=== PATIENT | male | born 1965 | race Caucasian/White ===

== ENCOUNTER 2022-04-23 13:19 | Inpatient (IN) | payer OTHER, SELFPAY ==
--- NOTE | ~2022-04-23 | XR_ITS ---
EXAMINATION: XR CHEST CLINICAL INFORMATION: Cough. COMPARISON: None TECHNIQUE: 2 views of the chest were obtained. FINDINGS: There are very small bilateral pleural effusions with mild superjacent linear opacities. The upper lung silva are clear. The heart and mediastinal structures are unremarkable. XR/XR chest 2V IMPRESSION: Very small bilateral pleural effusions and mild superjacent atelectasis/infiltrates.
--- NOTE | ~2022-04-23 | CT_ITS ---
EXAMINATION: CT ANGIOGRAM OF THE CHEST WITH AND WITHOUT CONTRAST (CT PULMONARY ANGIOGRAM FOR PE) CLINICAL INFORMATION: Reason for Exam leukocytosis, pleural effusion, cough COMPARISON: Chest radiograph earlier today TECHNIQUE: Prior to contrast administration, noncontrast localization images were obtained. Subsequently, multidetector volumetric imaging was performed from the thoracic inlet to below the diaphragms following the administration of 65 mL Omnipaque 350 intravenous contrast. No contrast reaction reported Sagittal, coronal, and MIP oblique sagittal reformatted images were obtained on the CT workstation, uploaded to PACS, and reviewed. This CT examination was performed using dose optimization techniques as appropriate, variously including the following: *Automated exposure control *Adjustment of mA and/or kV according to patient size (this includes techniques or standardized protocols for targeted exams where dose is matched to indication/reason for exam; i.e. extremities or head) *Use of iterative reconstruction technique Total exam dose-length product 230 mGy-cm FINDINGS: QUALITY OF STUDY/CONTRAST BOLUS: Satisfactory bolus but marked motion artifact limiting diagnosis especially at the lung bases.. PULMONARY ARTERIES: No central or large segmental pulmonary emboli. THORACIC AORTA: No aneurysm or dissection. LUNG: Bilateral lower lobe tree-in-bud densities are seen along with some traction bronchiectasis and lower lobe atelectasis. Tree-in-bud formation is also present in the posterior portions of both upper lobes (see hurley images). Prominent AP window lymph nodes seen measuring 1.9 x 1.5 x 1.5 cm. PLEURA: No pleural effusion or pneumothorax. MEDIASTINUM: Normal heart size. No pericardial effusion. No hilar or mediastinal lymphadenopathy. No evidence of septal bowing or right heart strain. CHEST WALL/AXILLA: No axillary or internal mammary lymphadenopathy. OSSEOUS STRUCTURES: No acute or suspicious osseous abnormality. UPPER ABDOMEN: Unremarkable. No reflux of contrast into the hepatic veins to suggest elevated right heart pressures. CT/CT angio chest PE protocol IMPRESSION: 1. Limited exam but no central or large segmental pulmonary emboli are seen. 2. Multifocal moderately extensive tree-in-bud formation suggesting airway disease/multifocal pneumonia. VTE: negative
[2022-04-23 13:26] VITALS: BP 105/64; PULSE 79; RESP 18; TEMP 36.8; O2SAT 97; BMI 22.9
[2022-04-23 14:11] LABS: Basophils Absolute Auto 0.1 X10*3/uL (0.0-0.2); Basophils Percent Auto 0.4 % (0-2); Eosinophils Absolute Auto 0.2 X10*3/uL (0.0-0.4); Eosinophils Percent Auto 0.7 % (0-4); Hematocrit 33.6 % (42.0-52.0); Hemoglobin 11.8 g/dl (14.0-18.0); Imm Gran Abs Auto 0.41 X10*3/uL (0.00-0.03); Imm Gran Pct Auto 1.9 % (0.0-0.4); Lymphocytes Absolute Auto 1.7 X10*3/uL (1.2-4.9); Lymphocytes Percent Auto 7.9 % (20-40); MANUAL DIFF FLAG SCAN; Mean Corpuscular HGB Conc 35.1 g/dl (31.0-36.0); Mean Corpuscular Hemoglobin 28.2 pg (27.0-33.0); Mean Corpuscular Volume 80.2 fL (80.0-98.0); Mean Platelet Volume 8.7 fL (9.4-12.4); Monocytes Absolute Auto 0.1 X10*3/uL (0.1-1.2); Monocytes Percent Auto 0.6 % (2-11); Neutrophils Absolute Auto 18.7 x10*3/uL (2.0-8.3); Neutrophils Percent Auto 88.5 % (45-73); Platelet Count 459 X10*3/uL (160-400); Red Blood Count 4.19 X10*6/uL (4.60-5.80); SCAN SMEAR FLAG 1; White Blood Count 21.2 X10*3/uL (4.8-10.8)
[2022-04-23 14:27] LABS: COVID-19 Test Negative (Negative); IDNOW Serial# 16C4AD1C; Influenza A Negative (Negative); Influenza B2 Negative (Negative)
[2022-04-23 14:43] LABS: SLIDE REVIEW VERIFIED
[2022-04-23 19:51] LABS: Alanine Aminotransferase 41 U/L (0-40); Albumin Level 3.1 g/dL (3.5-5.0); Alkaline Phosphatase 139 U/L (39-117); Anion Gap 16 (12-20); Aspartate Amino Transferase 38 U/L (5-37); Bilirubin Total 1.4 mg/dL (0.0-1.0); Blood Urea Nitrogen 29 mg/dL (9-16); Calcium 8.5 mg/dL (8.4-10.2); Carbon Dioxide 24 mmol/L (22-29); Chloride 102 mmol/L (96-108); Creatinine Clr Calc Pharmacy 84.3; Estimated Glomerular Filt Rate > 60; Glucose Random 117 mg/dL (60-115); Potassium 4.6 mmol/L (3.3-5.1); Sodium 137 mmol/L (135-145); Total Protein 6.5 g/dL (6.5-8.0)
--- NOTE | 2022-04-23 21:02 | ED_ITS ---
HPI - Recheck/Abnormal Lab/Rx General Chief Complaint: Recheck/Abnormal Lab/Rx Stated Complaint: ELVE WHITE CELLS R RIB PAINS Time Seen by Provider: 04/23/22 20:36 Source: patient Mode of arrival: ambulatory Limitations: no limitations History of Present Illness HPI narrative: 56 yo male with history of Rheumatoid Arthritis on MTX and Annia & hypothyroidism who presents to the ER for evaluation of leukocytosis. He reports on 04/14 he started feeling unwell, fatigued and a mild cough. He ended up going to [facility] on 04/17 where he had a negative COVID test and told his symptoms were most likely viral. He continued to feel unwell, getting slightly worse. He was able to go to work every day but was exhausted when he got home. He has had no fever or chills. Two days ago he had his routine bimonthly lab work done at his Hot Wort Settler's office at [facility]. He got a call yesterday afternoon that his WBC was 33.9. His PCP and Hot Wort Settler recommended he come to the ER for further evaluation. 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 He denies any known insect or bug bites. No rashes. No fevers, chills, nausea, vomiting, diarrhea, or abdominal pain. He has had a cough that recently started producing white phlegm. No chest pain. He reports right lower rib pain associa lalita with coughing. complaint: abnormal lab and needs IV antibiotics Initial visit (ago): day(s) (10) Initial visit for: other (cough and fatigue ) Returns today for: called because of abnormal lab/test Description of abnormal result: WBC 33.9K Symptoms since prior visit: no new symptoms Associated symptoms: malaise Related Data Allergies Allergy/AdvReac Type Severity Reaction Status Date / Time No Known Allergies Allergy Verified 04/23/22 13:25 Review of Systems Review of Systems: Constitutional: No Fever, No Chills, +Fatigue ENT/Mouth: No sore throat, No Rhinorrhea, No Swallowing Difficulty Eyes: No Eye Pain, No Swelling, No Redness Cardiovascular: No Chest Pain, No SOB, No Orthopnea, No Edema Respiratory: No Cough, No Sputum, No Wheezing, No dyspnea Gastrointestinal: No Nausea, No Vomiting, No Diarrhea, No abdominal Pain, No Hematochezia, No Melena Genitourinary: No Dysuria, No Urinary Frequency, No Hematuria Musculoskeletal: + joint pain, + Myalgias Skin: No Skin Lesions, No rash Neuro: No Weakness, No Numbness, No Dizziness, No Headache Psych: No Anxiety/Panic, No Depression Heme/Lymph: No Bruising, No Lymphadenopathy Endocrine: No Polyuria, No Polydipsia PMFSH Social History Social History Advance Directives: No Advance Directives Information Provided: No Physical Exam Vital Signs: Vital Signs: Last Vital Signs Temp 98.2 F 04/23/22 13:26 Pulse 79 04/23/22 13:26 Resp 18 04/23/22 13:26 BP 105/64 04/23/22 13:26 Pulse Ox 97 04/23/22 13:26 O2 Del Method 04/23/22 13:26 BMI result Body Mass Index 22.9 Appearance: Alert. Oriented X3. No acute distress. Eyes: Pupils equal, round and reactive to light. ENT: Pharynx normal. Neck: Normal inspection. Neck supple. CVS: Normal heart rate and rhythm. Pulses normal. Respiratory: No respiratory distress. Breath sounds with faint rales at bilateral bases, no wheezes or rhonchi. Abdomen: Soft and nontender. +BS x4 Skin: Skin warm and dry. Normal skin color. Normal skin turgor. No rashes. Extremities: No lower extremity edema. Neuro: Oriented X 3. No motor deficit. No sensory deficit. Course Course Course Narrative: 56-year-old immunocompromised male with a history of rheumatoid arthritis on methotrexate and Humira, history of hypothyroidism who presents to the ER for ev aluation of significant leukocytosis of 33.9 as an outpatient. He reports feeling unwell for the last 10 days with fatigue, cough and acute on chronic joint pains. VS are normal on arrival. Exam is unremarkable. His labs were repeated in triage - WBC remains signfiicantly elevated today 21.2K, although downtrending. Case and imaging was reviewed with Dr. Mendez who recommends CTA chest, broad spectrum abx and admission to the hospital for further management. Plan of care d/w patient. Reevaluation(s) Reevaluation #1: Multiple attempts at IVs, another nurse to try now. Delay in CTA and abx due to this. Reevaluation #2: Lactic acid 3.2. IV fluids are ordered. CTA of the chest was done, no PE is visualized. There is multifocal moderately extensive tree-in-bud opacities suggesting airway disease/multifocal pneumonia. CRP ESR and procalcitonin have been added. Plan for admission. Hospitalist has been texted who accepts admission. MDM - Recheck/Abnormal Lab/Rx Medical Records Attestation: I reviewed the patient's medical records. Lab Data Attestation: I reviewed the patient's lab results. Result diagrams: 04/23/22 13:59 04/23/22 19:22 Labs: Lab Results 04/23/22 04/23/22 04/23/22 Range/Units 13:59 14:01 14:01 WBC 21.2 H (4.8-10.8) X10*3/uL RBC 4.19 L (4.60-5.80) X10*6/uL Hgb 11.8 L (14.0-18.0) g/dl Hct 33.6 L (42.0-52.0) % MCV 80.2 (80.0-98.0) fL MCH 28.2 (27.0-33.0) pg MCHC 35.1 (31.0-36.0) g/dl RDW 16.0 (11.0-16.0) % Plt Count 459 H (160-400) X10*3/uL MPV 8.7 L (9.4-12.4) fL Immature Gran % (Auto) 1.9 H (0.0-0.4) % Neut % (Auto) 88.5 H (45-73) % Lymph % (Auto) 7.9 L (20-40) % [place] % (Auto) 0.6 L (2-11) % Eos % (Auto) 0.7 (0-4) % Baso % (Auto) 0.4 (0-2) % Lymph # (Auto) 1.7 (1.2-4.9) X10*3/uL [place] # (Auto) 0.1 (0.1-1.2) X10*3/uL Eos # (Auto) 0.2 (0.0-0.4) X10*3/uL Baso # (Auto) 0.1 (0.0-0.2) X10*3/uL Abs Immat Gran (auto) 0.41 H (0.00-0.03) X10*3/uL Absolute Neuts (auto) 18.7 H (2.0-8.3) x10*3/uL Absolute Nucleated RBC 0.000 (0.0-0.012) X10*3/uL Nucleated RBC % (auto) 0.0 (0.0-0.2) /100WBC Smear Tech's Comments VERIFIED Sodium (135-145) mmol/L Potassium (3.3-5.1) mmol/L Chloride (96-108) mmol/L Carbon Dioxide (22-29) mmol/L Anion Gap (12-20) BUN (9-16) mg/dL Creatinine (0.5-1.4) mg/dL Estim Creat Clear Calc Estimated GFR Random Glucose (60-115) mg/dL Lactic Acid (0.5-2.0) mmol/L Calcium (8.4-10.2) mg/dL Total Bilirubin (0.0-1.0) mg/dL AST (5-37) U/L ALT (0-40) U/L Alkaline Phosphatase (39-117) U/L C-Reactive Protein (< or = 0.50) mg/dL Total Protein (6.5-8.0) g/dL Albumin (3.5-5.0) g/dL Urine Color Urine Appearance Urine pH (5.0-8.0) Ur Specific [place] (1.005-1.025) Urine Protein (NEG-TRACE) MG/DL Urine Glucose (UA) (NEG) MG/DL Urine Ketones (NEG) MG/DL Urine Blood (NEG) Urine Nitrite (NEG) Ur Leukocyte Esterase (NEG) COVID-19 (DARIO) Negative (Negative) COVID-19 Clin Com See Note Influenza Type A (SUNDAY) Negative (Negative) Influenza Type B (SUNDAY) Negative (Negative) Influenza A & B Note See Note 04/23/22 04/23/22 04/23/22 Range/Units 19:22 21:48 22:00 WBC (4.8-10.8) X10*3/uL RBC (4.60-5.80) X10*6/uL Hgb (14.0-18.0) g/dl Hct (42.0-52.0) % MCV (80.0-98.0) fL MCH (27.0-33.0) pg MCHC (31.0-36.0) g/dl RDW (11.0-16.0) % Plt Count (160-400) X10*3/uL MPV (9.4-12.4) fL Immature Gran % (Auto) (0.0-0.4) % Neut % (Auto) (45-73) % Lymph % (Auto) (20-40) % [place] % (Auto) (2-11) % Eos % (Auto) (0-4) % Baso % (Auto) (0-2) % Lymph # (Auto) (1.2-4.9) X10*3/uL [place] # (Auto) (0.1-1.2) X10*3/uL Eos # (Auto) (0.0-0.4) X10*3/uL Baso # (Auto) (0.0-0.2) X10*3/uL Abs Immat Gran (auto) (0.00-0.03) X10*3/uL Absolute Neuts (auto) (2.0-8.3) x10*3/uL Absolute Nucleated RBC (0.0-0.012) X10*3/uL Nucleated RBC % (auto) (0.0-0.2) /100WBC Smear Tech's Comments Sodium 137 (135-145) mmol/L Potassium 4.6 (3.3-5.1) mmol/L Chloride 102 (96-108) mmol/L Carbon Dioxide 24 (22-29) mmol/L Anion Gap 16 (12-20) BUN 29 H (9-16) mg/dL Creatinine 0.83 (0.5-1.4) mg/dL Estim Creat Clear Calc 84.3 Estimated GFR > 60 Random Glucose 117 H (60-115) mg/dL Lactic Acid 3.1 H* (0.5-2.0) mmol/L Calcium 8.5 (8.4-10.2) mg/dL Total Bilirubin 1.4 H (0.0-1.0) mg/dL AST 38 H (5-37) U/L ALT 41 H (0-40) U/L Alkaline Phosphatase 139 H (39-117) U/L C-Reactive Protein 30.52 H (< or = 0.50) mg/dL Total Protein 6.5 (6.5-8.0) g/dL Albumin 3.1 L (3.5-5.0) g/dL Urine Color YELLOW Urine Appearance CLEAR Urine pH 5.5 (5.0-8.0) Ur Specific [place] >= 1.030 H (1.005-1.025) Urine Protein TRACE (NEG-TRACE) MG/DL Urine Glucose (UA) NEG (NEG) MG/DL Urine Ketones 15 (NEG) MG/DL Urine Blood NEG (NEG) Urine Nitrite NEG (NEG) Ur Leukocyte Esterase NEG (NEG) COVID-19 (DARIO) (Negative) COVID-19 Clin Com Influenza Type A (SUNDAY) (Negative) Influenza Type B (SUNDAY) (Negative) Influenza A & B Note Discharge Plan Discharge Clinical Impression: Multifocal pneumonia Patient Disposition: Admitted As Inpatient
[2022-04-23 22:13] LABS: Appearance Urine CLEAR; Color Urine YELLOW; Glucose Urine UA NEG (NEG); Leukocyte Esterase Urine NEG (NEG); Nitrite Urine NEG (NEG); PH 5.5 (5.0-8.0); Specific Gravity - Urine >= 1.030 (1.005-1.025); Urine Blood NEG (NEG); Urine Ketones 15 MG/DL (NEG); Urine Protein TRACE MG/DL (NEG-TRACE)
[2022-04-23 22:39] LABS: Lactic Acid 3.1 mmol/L (0.5-2.0)
[2022-04-23] MEDS: iohexoL 350 MG/ML 100 ML INFUS..BTL 65 ML IV (23:11)
[2022-04-23] MEDS: 0.9 % Sodium Chloride 1,000 ML 999 ML IVCONT (23:24)
[2022-04-23] MEDS: Piperacillin Sodium/Tazobactam 4.5 GM in 0.9 % Sodium Chloride 100 ML IV (23:31)
--- NOTE | 2022-04-23 23:53 | P.HPHOSP_ITS ---
History of Present Illness Date of Service: 04/23/22 Chief Complaint: weakness This is a pleasant 48-year-old male past medical history of rheumatoid arthritis on MTX and Humira, hypothyroidism, presents to the hospital with complaints of abnormal labs and generalized weakness. Patient reports that he started feeling unwell about a week ago having significant fatigue, always feeling tired, having shortness of breath on exertion, cough, no significant sputum production, [facility] had [facility] which was significant for leukocytosis. He had tested for COVID but he was negative. He went home but continued to feel unwell, getting slightly worse. 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 he reports that he continues to work but has just felt generally unwell. He denies any fever, no chills, no chest pain, no abdominal pain, no nausea or vomiting, no diarrhea constipation, no urinary symptoms and no lower extremity edema. On arrival to the ED patient found to be hemodynamically stable no significant abnormal vitals Labs are significant for WBC count of 21.2, hemoglobin of 11.8, hematocrit 33.6, lactic acid of 3.1, total bili of 1.4, AST of 38, ALT of 41, CRP of 30.52, procalcitonin of 0.5, UA negative, chest x-ray showed multifocal pneumonia, COVID-19 negative Patient will be admitted for above Review of Systems Review of Systems: Yes all other systems are reviewed and are negative [facility] Medical History (Updated 04/24/22 @ 06:42 by Presley Nichols MD) Hypothyroidism Rheumatoid arthritis Family History (Updated 04/24/22 @ 06:41 by Presley Nichols MD) Other No family history of coronary artery disease Surgical History (Updated 04/24/22 @ 06:42 by Presley Nichols MD) No pertinent past surgical history Social History Alcohol intake: never Patient Tobacco Use Status: Never used Tobacco Use of substances other than those prescribed or required for medical reasons: No Advance Directives: No Advance Directives Information Provided: No Meds Allergies Allergy/AdvReac Type Severity Reaction Status Date / Time No Known Allergies Allergy Verified 04/23/22 13:25 Active Medications: Current Medications Sodium Chloride (Ns) 1,000 mls @ 999 mls/hr IVCONT .Q1H1M REGGIE Stop: 04/24/22 00:15 Last Admin: 04/23/22 23:24 Dose: 999 mls/hr Pharmacy Consult (Consult Rx Perform Med Rec) 1 each MISCELLANE ONCE PRN PRN Reason: Consult order Physical Exam Vital Signs and Narrative: Vital Signs: Last Vital Signs Temp 98.2 F 04/23/22 13:26 Pulse 79 04/23/22 13:26 Resp 18 04/23/22 13:26 BP 105/64 04/23/22 13:26 Pulse Ox 97 04/23/22 13:26 O2 Del Method 04/23/22 13:26 BMI result Body Mass Index 22.9 Const: Other: Ill-appearing thin man who is oriented x3 General: cooperative and no acute distress Orientation/consciousness: patient oriented x3 Eyes: General: appearance normal, both eyes and all related structures Resp: Other: Crackles bilaterally Effort & Inspection: normal respiratory effort Cardio: Rate: regular rate Rhythm: regular rhythm GI: Palpation (GI): Soft to palpation Auscultation: normal bowel sounds Skin: General skin exam: no rashes or lesions noted Neuro: General: patient oriented x3 Cognition (Neuro): normal cognition Extrem: General: Yes normal to inspection and Yes no pedal edema Results Labs CBC and Chem 7: 04/24/22 04:20 04/24/22 04:19 Labs: Laboratory Results - last 24 hr 04/23/22 04/23/22 04/23/22 13:59 14:01 14:01 MCV 80.2 MCH 28.2 MCHC 35.1 RDW 16.0 Plt Count 459 H MPV 8.7 L Immature Gran % (Auto) 1.9 H Neut % (Auto) 88.5 H Lymph % (Auto) 7.9 L [place] % (Auto) 0.6 L Eos % (Auto) 0.7 Baso % (Auto) 0.4 Lymph # (Auto) 1.7 [place] # (Auto) 0.1 Eos # (Auto) 0.2 Baso # (Auto) 0.1 Abs Immat Gran (auto) 0.41 H Absolute Neuts (auto) 18.7 H Absolute Nucleated RBC 0.000 Nucleated RBC % (auto) 0.0 Smear Tech's Comments VERIFIED Anion Gap Estim Creat Clear Calc Estimated GFR Random Glucose Lactic Acid Calcium Total Bilirubin AST ALT Alkaline Phosphatase Total Protein Albumin Urine Color Urine Appearance Urine pH Ur Specific [place] Urine Protein Urine Glucose (UA) Urine Ketones Urine Blood Urine Nitrite Ur Leukocyte Esterase COVID-19 (DARIO) Negative COVID-19 Clin Com See Note Influenza Type A (SUNDAY) Negative Influenza Type B (SUNDAY) Negative Influenza A & B Note See Note 04/23/22 04/23/22 04/23/22 19:22 21:48 22:00 MCV MCH MCHC RDW Plt Count MPV Immature Gran % (Auto) Neut % (Auto) Lymph % (Auto) [place] % (Auto) Eos % (Auto) Baso % (Auto) Lymph # (Auto) [place] # (Auto) Eos # (Auto) Baso # (Auto) Abs Immat Gran (auto) Absolute Neuts (auto) Absolute Nucleated RBC Nucleated RBC % (auto) Smear Tech's Comments Anion Gap 16 Estim Creat Clear Calc 84.3 Estimated GFR > 60 Random Glucose 117 H Lactic Acid 3.1 H* Calcium 8.5 Total Bilirubin 1.4 H AST 38 H ALT 41 H Alkaline Phosphatase 139 H Total Protein 6.5 Albumin 3.1 L Urine Color YELLOW Urine Appearance CLEAR Urine pH 5.5 Ur Specific [place] >= 1.030 H Urine Protein TRACE Urine Glucose (UA) NEG Urine Ketones 15 Urine Blood NEG Urine Nitrite NEG Ur Leukocyte Esterase NEG COVID-19 (DARIO) COVID-19 Clin Com Influenza Type A (SUNDAY) Influenza Type B (SUNDAY) Influenza A & B Note Imaging Radiologist's Impressions: Impressions Chest X-Ray 04/23/22 14:16 IMPRESSION: Very small bilateral pleural effusions and mild superjacent atelectasis/infiltrates. Chest CTA 04/23/22 23:10 IMPRESSION: 1. Limited exam but no central or large segmental pulmonary emboli are seen. 2. Multifocal moderately extensive tree-in-bud formation suggesting airway disease/multifocal pneumonia. VTE: negative Assessment and Plan (1) Multifocal pneumonia: Status: Acute (2) Immunocompromised state: Status: Acute Plan 56-year-old male with past medical history of RA on immunosuppressants presents to the hospital with complaints of generalized weakness common mild cough found to have acute multifocal pneumonia # multifocal pneumonia - community-acquired - COVID-19 negative - has elevated procalcitonin, leukocytosis, - will treat with IV antibiotics given his immunocompromised state - monitor for respiratory symptoms # immunocompromised state - in the setting of RA on immunosuppressant - IV antibiotics as above - monitor # RA - stable - continue home medications # hypothyroidism - continue levothyroxine DVT prophylaxis: Lovenox Given his immunosuppressed state patient will need IV antibiotics for treatment of multifocal pneumonia and therefore admission with a minimum 2 night hospital stay for further management and monitoring Pending med rec by pharmacy Quality Stroke Does the patient have a stroke diagnosis?: No VTE Prior VTE?: No VTE Risk Level:: Medical - moderate - high VTE Device Contraindication: Treatment Not Indicated VTE Drug Contraindication: N/A - Med Ordered
[2022-04-24 00:04] LABS: C Reactive Protein 30.52 mg/dL (< or = 0.50)
[2022-04-24 00:10] LABS: Reflex Lactate? Lactic Acid Added
[2022-04-24 00:34] LABS: Procalcitonin 0.56 ng/mL
[2022-04-24 00:58] LABS: ~Lactic Acid-LAB USE ONLY 1.1 mmol/L (0.5-2.0)
[2022-04-24] MEDS: 0.9 % Sodium Chloride 1,000 ML 999 ML IVCONT (01:03)
[2022-04-24] MEDS: Piperacillin Sodium/Tazobactam 3.375 GM in 0.9 % Sodium Chloride 50 ML IV ×5 (01:03→22:56)
[2022-04-24] MEDS: vancomycin HCL 1,500 MG in 0.9 % Sodium Chloride 500 ML 333.33 MG IV (01:04)
[2022-04-24 02:53] VITALS: BP 115/77; PULSE 81; RESP 22; TEMP 36.4; O2SAT 100
[2022-04-24] MEDS: Lactated Ringers 1,000 ML 100 ML IVCONT ×3 (03:09→20:46)
[2022-04-24 04:26] LABS: Basophils Absolute Auto 0.1 X10*3/uL (0.0-0.2); Basophils Percent Auto 0.4 % (0-2); Eosinophils Absolute Auto 0.4 X10*3/uL (0.0-0.4); Eosinophils Percent Auto 2.9 % (0-4); Hematocrit 29.9 % (42.0-52.0); Hemoglobin 10.4 g/dl (14.0-18.0); Imm Gran Abs Auto 0.11 X10*3/uL (0.00-0.03); Imm Gran Pct Auto 0.9 % (0.0-0.4); Lymphocytes Absolute Auto 1.8 X10*3/uL (1.2-4.9); Lymphocytes Percent Auto 14.6 % (20-40); MANUAL DIFF FLAG SCAN; Mean Corpuscular HGB Conc 34.8 g/dl (31.0-36.0); Mean Corpuscular Hemoglobin 27.8 pg (27.0-33.0); Mean Corpuscular Volume 79.9 fL (80.0-98.0); Mean Platelet Volume 8.6 fL (9.4-12.4); Monocytes Absolute Auto 0.1 X10*3/uL (0.1-1.2); Monocytes Percent Auto 0.6 % (2-11); Neutrophils Absolute Auto 10.2 x10*3/uL (2.0-8.3); Neutrophils Percent Auto 80.6 % (45-73); Platelet Count 405 X10*3/uL (160-400); Red Blood Count 3.74 X10*6/uL (4.60-5.80); Red Cell Distribution Width 16.1 % (11.0-16.0); SCAN SMEAR FLAG 1; White Blood Count 12.6 X10*3/uL (4.8-10.8)
[2022-04-24 04:44] LABS: Anion Gap 12 (12-20); Blood Urea Nitrogen 26 mg/dL (9-16); Calcium 7.1 mg/dL (8.4-10.2); Carbon Dioxide 19 mmol/L (22-29); Chloride 110 mmol/L (96-108); Creatinine Clr Calc Pharmacy 98.6; Estimated Glomerular Filt Rate > 60; Glucose Random 99 mg/dL (60-115); Potassium 4.2 mmol/L (3.3-5.1); Sodium 137 mmol/L (135-145)
[2022-04-24 04:55] LABS: SLIDE REVIEW VERIFIED
[2022-04-24 05:43] VITALS: BP 105/55; PULSE 65; RESP 20; TEMP 37; O2SAT 98
--- NOTE | 2022-04-24 06:33 | PHA.PROG ---
Admission Date/Time: April 23, 2022 23:50 Indication: respiratory infection Weight in k.5 kg Adjusted body weight in K.9 [place] body weight in K.5 Obesity Dosing Indication % IBW: not obese Serum Creatinine - Last 168 Hours 04/23/22 04/24/22 19:22 04:19 Creatinine 0.83 0.71 Estimated CrCl and GFR - Last 168 Hours 04/23/22 04/24/22 19: 04:19 Estim Creat Clear Calc 84.3 98.6 Estimated GFR > 60 > 60 Vancomycin Loading Dose: 1500mg Current Vancomycin Dosing Regimen: 1000mg Q12 Vancomycin Monitoring using AUC goal of 400 - 600 range with trough as surrogate marker: predicted 512 mg/L/hr Date and Time for next Vancomycin Level to be drawn: 04/25 @1100 Pharmacist Comments on Vancomycin Plan: Patients Scr is 0.71, indicating that there should be no problem with the patient clearing. Patient is also younger than 65 years old. This being said, Q12 dosing was chosen. Patient received a proper load at 25mg/kg. Current regimen is 1000mg Q12, will get a level on 04/25 @1100 right before the 1300 dose. Earlier draw was chosen so that trough can be monitored by pharmacy. If the patient was to get one more dose, the trough would have been at 0100 while the pharmacy is closed. Predicted AUC 512 mg/L/hr. Vancomycin dosing will take advantage of [employer] as a clinical decision support tool that uses Bayesian modeling to calculate individual patient's pharmacokinetic parameters and forecast the patient's drug concentration time course with the target goal AUC 24 range of 400 - 600 mg/L/hr.
[2022-04-24 07:37] VITALS: BP 99/51; PULSE 71; RESP 18; TEMP 36.9; O2SAT 99
--- NOTE | 2022-04-24 09:14 | PHA.MEDREC ---
Pharmacy Consult ? Medication Reconciliation Pharmacy has completed the medication reconciliation.
[2022-04-24 10:23] LABS: Adenovirus PCR Not Detected (Not Detect.); Bordetella parapertussis PCR Not Detected (Not Detect.); Bordetella pertussis PCR Not Detected (Not Detect.); Chlamydia pneumoniae PCR Not Detected (Not Detect.); Coronavirus 229E PCR Not Detected (Not Detect.); Coronavirus HKU1 PCR Not Detected (Not Detect.); Coronavirus NL63 PCR Not Detected (Not Detect.); Coronavirus OC43 PCR Not Detected (Not Detect.); Human metapneumovirus PCR Not Detected (Not Detect.); Influenza A PCR Not Detected (Not Detect.); Influenza B PCR Not Detected (Not Detect.); Mycoplasma pneumoniae PCR Not Detected (Not Detect.); Parainfluenza 1 PCR Not Detected (Not Detect.); Parainfluenza 2 PCR Not Detected (Not Detect.); Parainfluenza 3 PCR Not Detected (Not Detect.); Parainfluenza 4 PCR Not Detected (Not Detect.); RSV PCR Not Detected (Not Detect.); Rhino/Enterovirus PCR Not Detected (Not Detect.); SARS-CoV-2 PCR Not Detected (Not Detect.)
[2022-04-24 10:24] VITALS: BP 93/51; PULSE 60; RESP 16; TEMP 36.7; O2SAT 100
[2022-04-24 10:52] LABS: MRSA Nasal PCR NEGATIVE (Negative); SA Nasal PCR NEGATIVE (Negative)
--- NOTE | 2022-04-24 12:13 | PC.NURSE ---
PT STATES CP WITH COUGH, AOX4 AMB WITH STEADY GAIT JUST STATES FEELING WEAK. OOB TO USE URINAL INDEPENDENT. TOLERATING PO. ALL LABS SENT RESULTS PENDING. PT NEEDS BEING MET
--- NOTE | 2022-04-24 12:39 | HO.PM.IMPN ---
Subjective Subjective Date of Service: 04/24/22 Interval History: c/o rib pain with coughing no fever Review of Systems Review of Systems: Yes all other systems are reviewed and are negative Physical Exam Vital Signs: Vital Signs: Last Vital Signs Temp 98.0 F 04/24/22 10:24 Pulse 60 04/24/22 10:24 Resp 16 04/24/22 10:24 BP 93/51 L 04/24/22 10:24 Pulse Ox 100 04/24/22 10:24 O2 Del Method 04/24/22 10:24 BMI result Body Mass Index 22.9 Gen: in no acute distress HEENT: sclera anicteric, moist mucus membranes Neck: supple Lungs: diminished air entry Heart: regular rate and rhythm, no murmurs Abd: soft, non-tender, non-distended Ext: no edema, multiple deformities in fingers Skin: warm/well-perfused Neuro: alert and oriented x3, no focal findings Psych: appropriate affect Objective Data Active Medications Acetaminophen (Acetaminophen 325 Mg Tablet) 650 mg PO Q6H PRN PRN Reason: Pain, Mild (Pain Scale 1-3) Benzonatate (Benzonatate 100 Mg Capsule) 200 mg PO TID PRN PRN Reason: Cough Docusate Sodium (Docusate Sodium 100 Mg Capsule) 100 mg PO DAILY PRN PRN Reason: Constipation Enoxaparin Sodium (Enoxaparin Sodium 40 Mg/0.4 Ml Syringe) 40 mg SUBCUT Q24H [facility] Piperacillin Sod/Tazobactam (Sod 3.375 gm/ Sodium Chloride) 50 mls @ 100 mls/hr IV Q6H [facility] Last Admin: 04/24/22 05:41 Dose: 100 mls/hr Documented By: DON Lactated Ringer's (Lr) 1,000 mls @ 100 mls/hr IVCONT .Q10H [facility] Last Admin: 04/24/22 11:19 Dose: 100 mls/hr Documented By: FITZ Vancomycin HCl 1,000 mg/ (Sodium Chloride) 270 mls @ 270 mls/hr IV Q12H [facility] Ondansetron HCl (Ondansetron Hcl 4 Mg/2 Ml Vial) 4 mg IVPUSH Q8H PRN PRN Reason: Nausea and Vomiting Pharmacy Consult (Consult Rx Perform Med Rec) 1 each MISCELLANE ONCE PRN PRN Reason: Consult order Pharmacy Consult (Consult Rx Vancomycin Dosing) 1 each MISCELLANE DAILY PRN PRN Reason: Consult order Sodium Chloride (0.9 % Sodium Chloride Flush 3 Ml Syringe) 3 ml IVFLUSH QSHIFT [facility] Last Admin: 04/24/22 09:37 Dose: Not Given Documented By: FITZ Non-Admin Reason: IV Running Labs CBC & Chem 7: 04/24/22 04:20 04/24/22 04:19 Labs: Laboratory Results - last 24 hr 04/23/22 04/23/22 04/23/22 13:59 14:01 14:01 MCV 80.2 MCH 28.2 MCHC 35.1 RDW 16.0 Plt Count 459 H MPV 8.7 L Immature Gran % (Auto) 1.9 H Neut % (Auto) 88.5 H Lymph % (Auto) 7.9 L [place] % (Auto) 0.6 L Eos % (Auto) 0.7 Baso % (Auto) 0.4 Lymph # (Auto) 1.7 [place] # (Auto) 0.1 Eos # (Auto) 0.2 Baso # (Auto) 0.1 Abs Immat Gran (auto) 0.41 H Absolute Neuts (auto) 18.7 H Absolute Nucleated RBC 0.000 Nucleated RBC % (auto) 0.0 Smear Tech's Comments VERIFIED Anion Gap Estim Creat Clear Calc Estimated GFR Random Glucose Lactic Acid Lactic Acid F/U @ 2Hr Calcium Total Bilirubin AST ALT Alkaline Phosphatase C-Reactive Protein Total Protein Albumin Procalcitonin Urine Color Urine Appearance Urine pH Ur Specific [place] Urine Protein Urine Glucose (UA) Urine Ketones Urine Blood Urine Nitrite Ur Leukocyte Esterase Nasal Screen MRSA (PCR) Nasal S. aureus Screen Nasal MRSA/S.aureus Interp Respiratory Panel Ahuja Adenovirus (Rapid PCR) B.pert (TEM-PCR) B.parapertussis DNA PCR C. pneumoniae DNA (PCR) Coronavirus OC43 (PCR) Coronavirus HKU1 (PCR) Coronavirus 229E (PCR) COVID-19 (DARIO) Negative COVID-19 Clin Com See Note Coronavirus NL63 (PCR) Human Metapneumovir PCR Influenza Type A (SUNDAY) Negative Influenza A (RT-PCR) Influenza Type B (SUNDAY) Negative Influenza B (RT-PCR) Influenza A & B Note See Note M. pneumoniae (PCR) Parainfluenza 1 (PCR) Parainfluenza 2 (PCR) Parainfluenza 3 (PCR) Parainfluenza 4 (PCR) RSV (PCR) Entero/Rhino (PCR) SARS-CoV-2 RNA (RT-PCR) Ur Strep pneumoniae Ag 04/23/22 04/23/22 04/23/22 18:22 19:22 21:48 MCV MCH MCHC RDW Plt Count MPV Immature Gran % (Auto) Neut % (Auto) Lymph % (Auto) [place] % (Auto) Eos % (Auto) Baso % (Auto) Lymph # (Auto) [place] # (Auto) Eos # (Auto) Baso # (Auto) Abs Immat Gran (auto) Absolute Neuts (auto) Absolute Nucleated RBC Nucleated RBC % (auto) Smear Tech's Comments Anion Gap 16 Estim Creat Clear Calc 84.3 Estimated GFR > 60 Random Glucose 117 H Lactic Acid Lactic Acid F/U @ 2Hr Calcium 8.5 Total Bilirubin 1.4 H AST 38 H ALT 41 H Alkaline Phosphatase 139 H C-Reactive Protein 30.52 H Total Protein 6.5 Albumin 3.1 L Procalcitonin 0.56 Urine Color YELLOW Urine Appearance CLEAR Urine pH 5.5 Ur Specific [place] >= 1.030 H Urine Protein TRACE Urine Glucose (UA) NEG Urine Ketones 15 Urine Blood NEG Urine Nitrite NEG Ur Leukocyte Esterase NEG Nasal Screen MRSA (PCR) Nasal S. aureus Screen Nasal MRSA/S.aureus Interp Respiratory Panel Ahuja Adenovirus (Rapid PCR) B.pert (TEM-PCR) B.parapertussis DNA PCR C. pneumoniae DNA (PCR) Coronavirus OC43 (PCR) Coronavirus HKU1 (PCR) Coronavirus 229E (PCR) COVID-19 ([facility]ARIO) COVID-19 Clin Com Coronavirus NL63 (PCR) Human Metapneumovir PCR Influenza Type A (SUNDAY) Influenza A (RT-PCR) Influenza Type B (SUNDAY) Influenza B (RT-PCR) Influenza A & B Note M. pneumoniae (PCR) Parainfluenza 1 (PCR) Parainfluenza 2 (PCR) Parainfluenza 3 (PCR) Parainfluenza 4 (PCR) RSV (PCR) Entero/Rhino (PCR) SARS-CoV-2 RNA (RT-PCR) Ur Strep pneumoniae Ag 04/23/22 04/24/22 04/24/22 22:00 00:31 04:19 MCV MCH MCHC RDW Plt Count MPV Immature Gran % (Auto) Neut % (Auto) Lymph % (Auto) [place] % (Auto) Eos % (Auto) Baso % (Auto) Lymph # (Auto) [place] # (Auto) Eos # (Auto) Baso # (Auto) Abs Immat Gran (auto) Absolute Neuts (auto) Absolute Nucleated RBC Nucleated RBC % (auto) Smear Tech's Comments Anion Gap 12 Estim Creat Clear Calc 98.6 Estimated GFR > 60 Random Glucose 99 Lactic Acid 3.1 H* Lactic Acid F/U @ 2Hr 1.1 Calcium 7.1 L D Total Bilirubin AST ALT Alkaline Phosphatase C-Reactive Protein Total Protein Albumin Procalcitonin Urine Color Urine Appearance Urine pH Ur Specific [place] Urine Protein Urine Glucose (UA) Urine Ketones Urine Blood Urine Nitrite Ur Leukocyte Esterase Nasal Screen MRSA (PCR) Nasal S. aureus Screen Nasal MRSA/S.aureus Interp Respiratory Panel Ahuja Adenovirus (Rapid PCR) B.pert (TEM-PCR) B.parapertussis DNA PCR C. pneumoniae DNA (PCR) Coronavirus OC43 (PCR) Coronavirus HKU1 (PCR) Coronavirus 229E (PCR) COVID-19 ([facility]ARIO) COVID-19 Clin Com Coronavirus NL63 (PCR) Human Metapneumovir PCR Influenza Type A (SUNDAY) Influenza A (RT-PCR) Influenza Type B (SUNDAY) Influenza B (RT-PCR) Influenza A & B Note M. pneumoniae (PCR) Parainfluenza 1 (PCR) Parainfluenza 2 (PCR) Parainfluenza 3 (PCR) Parainfluenza 4 (PCR) RSV (PCR) Entero/Rhino (PCR) SARS-CoV-2 RNA (RT-PCR) Ur Strep pneumoniae Ag 04/24/22 04/24/22 04/24/22 04:20 08:39 08:40 MCV 79.9 L MCH 27.8 MCHC 34.8 RDW 16.1 H Plt Count 405 H MPV 8.6 L Immature Gran % (Auto) 0.9 H Neut % (Auto) 80.6 H Lymph % (Auto) 14.6 L [place] % (Auto) 0.6 L Eos % (Auto) 2.9 Baso % (Auto) 0.4 Lymph # (Auto) 1.8 [place] # (Auto) 0.1 Eos # (Auto) 0.4 Baso # (Auto) 0.1 Abs Immat Gran (auto) 0.11 H Absolute Neuts (auto) 10.2 H Absolute Nucleated RBC 0.000 Nucleated RBC % (auto) 0.0 Smear Tech's Comments VERIFIED Anion Gap Estim Creat Clear Calc Estimated GFR Random Glucose Lactic Acid Lactic Acid F/U @ 2Hr Calcium Total Bilirubin AST ALT Alkaline Phosphatase C-Reactive Protein Total Protein Albumin Procalcitonin Urine Color Urine Appearance Urine pH Ur Specific [place] Urine Protein Urine Glucose (UA) Urine Ketones Urine Blood Urine Nitrite Ur Leukocyte Esterase Nasal Screen MRSA (PCR) NEGATIVE Nasal S. aureus Screen NEGATIVE Nasal MRSA/S.aureus Interp SEE NOTE Respiratory Panel Ahuja See Note Adenovirus (Rapid PCR) Not Detected B.pert (TEM-PCR) Not Detected B.parapertussis DNA PCR Not Detected C. pneumoniae DNA (PCR) Not Detected Coronavirus OC43 (PCR) Not Detected Coronavirus HKU1 (PCR) Not Detected Coronavirus 229E (PCR) Not Detected COVID-19 ([facility]) COVID-19 Clin Com Coronavirus NL63 (PCR) Not Detected Human Metapneumovir PCR Not Detected Influenza Type A (SUNDAY) Influenza A (RT-PCR) Not Detected Influenza Type B (SUNDAY) Influenza B (RT-PCR) Not Detected Influenza A & B Note M. pneumoniae (PCR) Not Detected Parainfluenza 1 (PCR) Not Detected Parainfluenza 2 (PCR) Not Detected Parainfluenza 3 (PCR) Not Detected Parainfluenza 4 (PCR) Not Detected RSV (PCR) Not Detected Entero/Rhino (PCR) Not Detected SARS-CoV-2 RNA (RT-PCR) Not Detected Ur Strep pneumoniae Ag 04/24/22 08:41 MCV MCH MCHC RDW Plt Count MPV Immature Gran % (Auto) Neut % (Auto) Lymph % (Auto) [place] % (Auto) Eos % (Auto) Baso % (Auto) Lymph # (Auto) [place] # (Auto) Eos # (Auto) Baso # (Auto) Abs Immat Gran (auto) Absolute Neuts (auto) Absolute Nucleated RBC Nucleated RBC % (auto) Smear Tech's Comments Anion Gap Estim Creat Clear Calc Estimated GFR Random Glucose Lactic Acid Lactic Acid F/U @ 2Hr Calcium Total Bilirubin AST ALT Alkaline Phosphatase C-Reactive Protein Total Protein Albumin Procalcitonin Urine Color Urine Appearance Urine pH Ur Specific [place] Urine Protein Urine Glucose (UA) Urine Ketones Urine Blood Urine Nitrite Ur Leukocyte Esterase Nasal Screen MRSA (PCR) Nasal S. aureus Screen Nasal MRSA/S.aureus Interp Respiratory Panel Ahuja Adenovirus (Rapid PCR) B.pert (TEM-PCR) B.parapertussis DNA PCR C. pneumoniae DNA (PCR) Coronavirus OC43 (PCR) Coronavirus HKU1 (PCR) Coronavirus 229E (PCR) COVID-19 ([facility]) COVID-19 Clin Com Coronavirus NL63 (PCR) Human Metapneumovir PCR Influenza Type A (SUNDAY) Influenza A (RT-PCR) Influenza Type B (SUNDAY) Influenza B (RT-PCR) Influenza A & B Note M. pneumoniae (PCR) Parainfluenza 1 (PCR) Parainfluenza 2 (PCR) Parainfluenza 3 (PCR) Parainfluenza 4 (PCR) RSV (PCR) Entero/Rhino (PCR) SARS-CoV-2 RNA (RT-PCR) Ur Strep pneumoniae Ag Cancelled Assessment and Plan (1) Multifocal pneumonia: Status: Acute Plan hospital d#2 56yo M with RA on MTX + adalimumab presenting with weakness + cough and admitted for multifocal PNA # multifocal PNA in immunosuppressed pt - continue vancomycin + pip/patricia d#2 - follow BCx, send urine antigens for pneumococcus + Legionella, trend PCT # lactic acidosis - resolved p IV fluids # RA - continue MTX + FA, also on adalimumab # hypothyroidism - continue LT4 # VTE ppx: LMWH In my clinical judgment, the patient requires continued hospitalization for the following reasons: IV ABX, immunosuppression Quality Stroke Does the patient have a stroke diagnosis?: No VTE Prior VTE?: No VTE Risk Level:: Medical - moderate - high VTE Device Contraindication: Treatment Not Indicated VTE Drug Contraindication: N/A - Med Ordered
--- NOTE | 2022-04-24 14:11 | MHC.CM.PN ---
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
[2022-04-24] MEDS: vancomycin HCL 1,000 MG in 0.9 % Sodium Chloride 250 ML 270 MG IV (14:39)
[2022-04-24] MEDS: Lidocaine 4 % Patch ADH..PATCH 2 PATCH TRANSDERMA (14:39)
[2022-04-24 14:44] VITALS: BP 98/54; PULSE 72; RESP 18; TEMP 37; O2SAT 97
[2022-04-24 21:01] VITALS: BP 113/50; PULSE 74; RESP 16; TEMP 36.6; O2SAT 99
[2022-04-25] VITALS (8 sets, daily range): BP systolic 103–137; BP diastolic 48–71; PULSE 63–82; RESP 16–18; TEMP 36.8–37.1; O2SAT 96–99
[2022-04-25] MEDS: vancomycin HCL 1,000 MG in 0.9 % Sodium Chloride 250 ML 270 MG IV ×2 (01:00→13:41)
[2022-04-25] MEDS: Benzonatate 100 MG CAPSULE 200 MG PO (03:04)
[2022-04-25] MEDS: oxyCODONE HCl Immed Release 5 MG TABLET PO (03:04)
[2022-04-25] MEDS: Piperacillin Sodium/Tazobactam 3.375 GM in 0.9 % Sodium Chloride 50 ML IV ×3 (05:17→17:31)
[2022-04-25] MEDS: Lactated Ringers 1,000 ML 100 ML IVCONT ×2 (05:18→14:46)
[2022-04-25] MEDS: Levothyroxine Sodium 112 MCG TABLET PO (05:58)
[2022-04-25] MEDS: Morphine Sulfate 2 MG/ML CARTRIDGE IVPUSH (05:58)
[2022-04-25] MEDS: Enoxaparin Sodium 40 MG/0.4 ML SYRINGE SUBCUT (05:58)
[2022-04-25 07:01] LABS: Hematocrit 26.7 % (42.0-52.0); Hemoglobin 9.4 g/dl (14.0-18.0); Mean Corpuscular HGB Conc 35.2 g/dl (31.0-36.0); Mean Corpuscular Hemoglobin 28.2 pg (27.0-33.0); Mean Corpuscular Volume 80.2 fL (80.0-98.0); Mean Platelet Volume 8.6 fL (9.4-12.4); Platelet Count 317 X10*3/uL (160-400); Red Blood Count 3.33 X10*6/uL (4.60-5.80); Red Cell Distribution Width 16.5 % (11.0-16.0); White Blood Count 10.3 X10*3/uL (4.8-10.8)
[2022-04-25 07:33] LABS: Alanine Aminotransferase 19 U/L (0-40); Alkaline Phosphatase 96 U/L (39-117); Anion Gap 11 (12-20); Aspartate Amino Transferase 17 U/L (5-37); Bilirubin Total 1.5 mg/dL (0.0-1.0); Blood Urea Nitrogen 18 mg/dL (9-16); C Reactive Protein 12.37 mg/dL (< or = 0.50); Carbon Dioxide 22 mmol/L (22-29); Chloride 106 mmol/L (96-108); Estimated Glomerular Filt Rate > 60; Glucose Random 101 mg/dL (60-115); Potassium 3.9 mmol/L (3.3-5.1); Sodium 135 mmol/L (135-145); Total Protein 4.2 g/dL (6.5-8.0)
[2022-04-25 07:46] LABS: Procalcitonin 0.19 ng/mL
[2022-04-25 08:07] LABS: HIV AB/AG Nonreactive (Nonreactive); HIV Num 1 0.09 S/CO (0.00-0.99)
[2022-04-25] MEDS: Folic Acid 1 MG TABLET PO (08:29)
[2022-04-25] MEDS: Multivitamin TABLET 1 TAB PO (08:29)
[2022-04-25] MEDS: Lidocaine 4 % Patch ADH..PATCH 2 PATCH TRANSDERMA (08:30)
[2022-04-25 08:33] LABS: Immature Retic Fraction 11.4 % (2.3-13.4); Retic HGB Equivalent 38.4 pg (30.0-35.0); Reticulocyte Percent 0.4 % (0.5-1.8); Reticulocytes Absolute 0.015 X10*6/uL (0.026-0.095)
[2022-04-25 08:56] LABS: Iron 23 mcg/dL (45-160); Percent Iron Saturation 19 % (15-50); Total Iron Binding Capacity 122 mcg/dL (228-428); Unsaturated Iron Binding 99 ug/dL
[2022-04-25 09:16] LABS: Ferritin 1209 ng/mL (20-250)
[2022-04-25 12:02] LABS: Vancomycin Random 11.7 mcg/mL (15-20)
--- NOTE | 2022-04-25 12:10 | HE.PHANOTE ---
RE LES CONTINUE CURRENT DOSE. If renal function improves, consider changing to 750 mg q8h. Next trough 04/26 @1100
--- NOTE | 2022-04-25 12:12 | P.PNIM_ITS ---
Subjective Subjective Date of Service: 04/25/22 Interval History: cough improved, rib pain improved, afbrile Review of Systems Review of Systems: Yes all other systems are reviewed and are negative Physical Exam Vital Signs: Vital Signs: Last Vital Signs Temp 98.3 F 04/25/22 06:00 Pulse 78 04/25/22 12:07 Resp 16 04/25/22 12:07 BP 114/54 L 04/25/22 12:07 Pulse Ox 97 04/25/22 09:22 O2 Del Method 04/25/22 12:07 BMI result Body Mass Index 22.9 Gen: in no acute distress HEENT: sclera anicteric, moist mucus membranes Neck: supple Lungs: diminished air entry Heart: regular rate and rhythm, no murmurs Abd: soft, non-tender, non-distended Ext: no edema, multiple deformities in fingers Skin: warm/well-perfused Neuro: alert and oriented x3, no focal findings Psych: appropriate affect Objective Data Active Medications Acetaminophen (Acetaminophen 325 Mg Tablet) 650 mg PO Q6H PRN PRN Reason: Pain, Mild (Pain Scale 1-3) Benzonatate (Benzonatate 100 Mg Capsule) 200 mg PO TID PRN PRN Reason: Cough Last Admin: 04/25/22 03:04 Dose: 200 mg Documented By: JAMIA Docusate Sodium (Docusate Sodium 100 Mg Capsule) 100 mg PO DAILY PRN PRN Reason: Constipation Enoxaparin Sodium (Enoxaparin Sodium 40 Mg/0.4 Ml Syringe) 40 mg SUBCUT Q24H [facility] Last Admin: 04/25/22 05:58 Dose: 40 mg Documented By: JAMIA Folic Acid (Folic Acid 1 Mg Tablet) 1 mg PO DAILY [facility] Last Admin: 04/25/22 08:29 Dose: 1 mg Documented By: MELINA Piperacillin Sod/Tazobactam (Sod 3.375 gm/ Sodium Chloride) 50 mls @ 100 mls/hr IV Q6H [facility] Last Infusion: 04/25/22 07:11 Dose: 0 mls/hr Documented By: MELINA Lactated Ringer's (Lr) 1,000 mls @ 100 mls/hr IVCONT .Q10H [facility] Last Admin: 04/25/22 05:18 Dose: 100 mls/hr Documented By: JAMIA Vancomycin HCl 1,000 mg/ (Sodium Chloride) 270 mls @ 270 mls/hr IV Q12H [facility] Last Infusion: 04/25/22 07:12 Dose: 0 mls/hr Documented By: MELINA Levothyroxine Sodium (Levothyroxine Sodium 112 Mcg Tablet) 112 mcg PO DAILY@0600 [facility] Last Admin: 04/25/22 05:58 Dose: 112 mcg Documented By: JAMIA Lidocaine (Lidocaine 4 % Patch Adh..Patch) 2 patch TRANSDERMA DAILY [facility]; Protocol Last Admin: 04/25/22 08:30 Dose: 2 patch Documented By: MELINA Methotrexate (Methotrexate Sodium 2.5 Mg Tablet) 22.5 mg PO [facility] Morphine Sulfate (Morphine Sulfate 2 Mg/Ml Cartridge) 2 mg IVPUSH Q3H PRN; Protocol PRN Reason: severe pain Last Admin: 04/25/22 05:58 Dose: 2 mg Documented By: JAMIA Multivitamins/Vitamin C (Multivitamin Tablet) 1 tab PO DAILY [facility] Last Admin: 04/25/22 08:29 Dose: 1 tab Documented By: MELINA Ondansetron HCl (Ondansetron Hcl 4 Mg/2 Ml Vial) 4 mg IVPUSH Q8H PRN PRN Reason: Nausea and Vomiting Oxycodone HCl (Oxycodone Hcl Immed Release 5 Mg Tablet) 5 mg PO Q6H PRN PRN Reason: moderate pain Last Admin: 04/25/22 03:04 Dose: 5 mg Documented By: JAMIA Pharmacy Consult (Consult Rx Perform Med Rec) 1 each MISCELLANE ONCE PRN PRN Reason: Consult order Pharmacy Consult (Consult Rx Vancomycin Dosing) 1 each MISCELLANE DAILY PRN PRN Reason: Consult order Sodium Chloride (0.9 % Sodium Chloride Flush 3 Ml Syringe) 3 ml IVFLUSH QSHIFT [facility] Last Admin: 04/25/22 07:12 Dose: Not Given Documented By: MELINA Non-Admin Reason: Med Not Available Labs CBC & Chem 7: 04/25/22 06:20 04/25/22 06:20 Labs: Laboratory Results - last 24 hr 04/25/22 04/25/22 04/25/22 06:20 06:20 06:20 MCV 80.2 MCH 28.2 MCHC 35.2 RDW 16.5 H Plt Count 317 MPV 8.6 L Absolute Nucleated RBC 0.000 Nucleated RBC % (auto) 0.0 Absolute Retic 0.015 L Percent Retic 0.4 L Immature Retic Fraction 11.4 Retic Hgb Equivalent 38.4 H Anion Gap 11 L Estim Creat Clear Calc 103.0 Estimated GFR > 60 Random Glucose 101 Calcium 7.0 L Iron TIBC % Saturation Unsat Iron Binding Ferritin Total Bilirubin 1.5 H AST 17 D ALT 19 Alkaline Phosphatase 96 D C-Reactive Protein 12.37 H Total Protein 4.2 L D Albumin 2.0 L D Procalcitonin 0.19 Random Vancomycin HIV 1&2 Ab/P24 Ag 4thGn 04/25/22 04/25/22 04/25/22 06:20 06:20 11:13 MCV MCH MCHC RDW Plt Count MPV Absolute Nucleated RBC Nucleated RBC % (auto) Absolute Retic Percent Retic Immature Retic Fraction Retic Hgb Equivalent Anion Gap Estim Creat Clear Calc Estimated GFR Random Glucose Calcium Iron 23 L TIBC 122 L % Saturation 19 Unsat Iron Binding 99 Ferritin 1209 H Total Bilirubin AST ALT Alkaline Phosphatase C-Reactive Protein Total Protein Albumin Procalcitonin Random Vancomycin 11.7 L HIV 1&2 Ab/P24 Ag 4thGn Nonreactive Microbiology Microbiology Results: Microbiology 04/23/22 22:00 Blood Culture - Preliminary Blood - Venous No growth after 24 hours. 04/23/22 22:01 Blood Culture - Preliminary Blood - Venous No growth after 24 hours. Assessment and Plan (1) Multifocal pneumonia: Status: Acute Plan hospital d#3 56yo M with RA on MTX + adalimumab presenting with weakness + cough and admitted for multifocal PNA # multifocal PNA in immunosuppressed pt - continue vancomycin + pip/patricia d#3, follow BCx + urine antigens for pneumococcus + Legionella, PCT decreased, RVP negative HIV negative, ID consult # lactic acidosis - resolved p IV fluids # anemia, mixed GOLD/ACD - Fe supplementation # RA - continue MTX + FA, also on adalimumab # hypothyroidism - continue LT4 # VTE ppx: LMWH In my clinical judgment, the patient requires continued hospitalization for the following reasons: IV ABX, immunosuppression Quality Stroke Does the patient have a stroke diagnosis?: No VTE Prior VTE?: No VTE Risk Level:: Medical - moderate - high VTE Device Contraindication: Treatment Not Indicated VTE Drug Contraindication: N/A - Med Ordered
[2022-04-25] MEDS: Ferrous Sulfate 324 MG TABLET.DR PO (13:41)
--- NOTE | 2022-04-25 16:49 | P.CNID_ITS ---
History of Present Illness Data of Consult Service Date: 04/25/22 Requesting physician: Bienvenido Ceja Primary Care Provider: MD MATTHEW Porter Reason for consult: leukocytosis He presents with cough and fatigue. He has multifocal pneumonia He has symptoms for a week. [facility] Past Medical History Medical History Hypothyroidism Rheumatoid arthritis Family History Family History Other No family history of coronary artery disease Family history: reviewed and not pertinent Surgical History Surgical History No pertinent past surgical history Social History Social History Alcohol intake: never Patient Tobacco Use Status: Never used Tobacco Use of substances other than those prescribed or required for medical reasons: No Advance Directives: No Advance Directives Information Provided: No service: No Current occupational status: employed Meds Allergies Allergy/AdvReac Type Severity Reaction Status Date / Time No Known Allergies Allergy Verified 04/23/22 13:25 Active Medications: Current Medications Acetaminophen (Acetaminophen 325 Mg Tablet) 650 mg PO Q6H PRN PRN Reason: Pain, Mild (Pain Scale 1-3) Benzonatate (Benzonatate 100 Mg Capsule) 200 mg PO TID PRN PRN Reason: Cough Last Admin: 04/25/22 03:04 Dose: 200 mg Docusate Sodium (Docusate Sodium 100 Mg Capsule) 100 mg PO DAILY PRN PRN Reason: Constipation Enoxaparin Sodium (Enoxaparin Sodium 40 Mg/0.4 Ml Syringe) 40 mg SUBCUT Q24H [facility] Last Admin: 04/25/22 05:58 Dose: 40 mg Ferrous Sulfate (Ferrous Sulfate 324 Mg Tablet.Dr) 324 mg PO DAILY [facility] Last Admin: 04/25/22 13:41 Dose: 324 mg Folic Acid (Folic Acid 1 Mg Tablet) 1 mg PO DAILY [facility] Last Admin: 04/25/22 08:29 Dose: 1 mg Piperacillin Sod/Tazobactam (Sod 3.375 gm/ Sodium Chloride) 50 mls @ 100 mls/hr IV Q6H [facility] Last Infusion: 04/25/22 13:42 Dose: Infused Lactated Ringer's (Lr) 1,000 mls @ 100 mls/hr IVCONT .Q10H [facility] Last Admin: 04/25/22 14:46 Dose: 100 mls/hr Vancomycin HCl 1,000 mg/ (Sodium Chloride) 270 mls @ 270 mls/hr IV Q12H [facility] Last Infusion: 04/25/22 15:07 Dose: Infused Levothyroxine Sodium (Levothyroxine Sodium 112 Mcg Tablet) 112 mcg PO DAILY@0600 [facility] Last Admin: 04/25/22 05:58 Dose: 112 mcg Lidocaine (Lidocaine 4 % Patch Adh..Patch) 2 patch TRANSDERMA DAILY [facility]; Protocol Last Admin: 04/25/22 08:30 Dose: 2 patch Methotrexate (Methotrexate Sodium 2.5 Mg Tablet) 22.5 mg PO [facility] Morphine Sulfate (Morphine Sulfate 2 Mg/Ml Cartridge) 2 mg IVPUSH Q3H PRN; Protocol PRN Reason: severe pain Last Admin: 04/25/22 05:58 Dose: 2 mg Multivitamins/Vitamin C (Multivitamin Tablet) 1 tab PO DAILY [facility] Last Admin: 04/25/22 08:29 Dose: 1 tab Ondansetron HCl (Ondansetron Hcl 4 Mg/2 Ml Vial) 4 mg IVPUSH Q8H PRN PRN Reason: Nausea and Vomiting Oxycodone HCl (Oxycodone Hcl Immed Release 5 Mg Tablet) 5 mg PO Q6H PRN PRN Reason: moderate pain Last Admin: 04/25/22 03:04 Dose: 5 mg Pharmacy Consult (Consult Rx Perform Med Rec) 1 each MISCELLANE ONCE PRN PRN Reason: Consult order Pharmacy Consult (Consult Rx Vancomycin Dosing) 1 each MISCELLANE DAILY PRN PRN Reason: Consult order Sodium Chloride (0.9 % Sodium Chloride Flush 3 Ml Syringe) 3 ml IVFLUSH QSHIFT [facility] Last Admin: 04/25/22 14:46 Dose: Not Given Home Medications Medication Instructions Recorded Confirmed Last Taken Type adalimumab 40 mg/0.4 mL 40 mg subcut Q2W 04/24/22 04/24/22 04/19/22 History subcutaneous pen kit (Humira(CF) Pen) folic acid 1 mg tablet 1 tab PO DAILY 04/24/22 04/24/22 04/23/22 History levothyroxine 112 mcg tablet 1 tab PO DAILY@0600 04/24/22 04/24/22 04/23/22 History methotrexate sodium 2.5 mg tablet 9 tab PO SA 04/24/22 04/24/22 04/19/22 History multivitamin 1 tab PO DAILY 04/24/22 04/24/22 04/23/22 History Physical Exam Vital Signs: Vital Signs: Last Vital Signs Temp 98.7 F 04/25/22 16:03 Pulse 73 04/25/22 16:03 Resp 18 04/25/22 16:03 BP 103/55 L 04/25/22 16:03 Pulse Ox 97 04/25/22 16:03 O2 Del Method 04/25/22 16:03 BMI result Body Mass Index 22.9 Const: General: cooperative HEENT: Head: Yes normal to inspection Face and sinus: Yes normal facial exam Mouth: Normal oral and palatal mucosa present Teeth and gingiva: dentition normal Eyes: General: appearance normal, both eyes and all related structures Pupils: Equal, round and reactive pupils present Resp: Effort & Inspection: normal respiratory effort Cardio: Rate: regular rate Rhythm: regular rhythm GI: Palpation (GI): Soft to palpation and nontender : General: Yes no CVA tenderness Back/Spine/Pelvis: Back: no CVA tenderness Skin: General skin exam: no rashes or lesions noted Neuro: General: moves all extremities Cranial nerves: Yes Equal, round and reactive pupils present Extrem: General: Yes normal to inspection Psych: Appearance: grossly normal Results Labs CBC & Chem 7: 04/25/22 06:20 04/25/22 06:20 Labs: Short CBC 04/25/22 Range/Units 06:20 WBC 10.3 (4.8-10.8) X10*3/uL Hgb 9.4 L (14.0-18.0) g/dl Hct 26.7 L (42.0-52.0) % Plt Count 317 (160-400) X10*3/uL BMP 04/25/22 06:20 Sodium 135 Potassium 3.9 Chloride 106 Carbon Dioxide 22 BUN 18 H Creatinine 0.68 Calcium 7.0 L Liver Function 04/25/22 Range/Units 06:20 Total Bilirubin 1.5 H (0.0-1.0) mg/dL AST 17 D (5-37) U/L ALT 19 (0-40) U/L Alkaline Phosphatase 96 D (39-117) U/L Albumin 2.0 L D (3.5-5.0) g/dL Microbiology Microbiology Results: Microbiology 04/23/22 22:00 Blood - Venous Blood Culture - Preliminary No growth after 24 hours. 04/23/22 22:01 Blood - Venous Blood Culture - Preliminary No growth after 24 hours. Assessment and Plan (1) Immunocompromised state: Status: Acute (2) Multifocal pneumonia: Status: Acute possible strep,staph atypicals common in RA Plan po Levaquin likely for 10 days but check nares MRSA first
[2022-04-26] VITALS: BP 101/55; PULSE 80; RESP 18; TEMP 37.7; O2SAT 96
[2022-04-26] MEDS: Piperacillin Sodium/Tazobactam 3.375 GM in 0.9 % Sodium Chloride 50 ML IV ×3 (00:22→12:12)
[2022-04-26] MEDS: 0.9 % Sodium Chloride Flush 3 ML SYRINGE IVFLUSH ×2 (00:23→09:05)
[2022-04-26] MEDS: vancomycin HCL 1,000 MG in 0.9 % Sodium Chloride 250 ML 270 MG IV ×2 (00:31→12:59)
[2022-04-26 04:00] VITALS: BP 97/51; PULSE 71; RESP 18; TEMP 37.1; O2SAT 96
[2022-04-26] MEDS: Enoxaparin Sodium 40 MG/0.4 ML SYRINGE SUBCUT (05:38)
[2022-04-26] MEDS: Levothyroxine Sodium 112 MCG TABLET PO (05:38)
[2022-04-26 06:35] LABS: Hematocrit 27.5 % (42.0-52.0); Hemoglobin 9.7 g/dl (14.0-18.0); Mean Corpuscular HGB Conc 35.3 g/dl (31.0-36.0); Mean Corpuscular Hemoglobin 28.4 pg (27.0-33.0); Mean Corpuscular Volume 80.4 fL (80.0-98.0); Mean Platelet Volume 8.7 fL (9.4-12.4); Platelet Count 286 X10*3/uL (160-400); Red Blood Count 3.42 X10*6/uL (4.60-5.80); Red Cell Distribution Width 16.5 % (11.0-16.0); White Blood Count 12.3 X10*3/uL (4.8-10.8)
[2022-04-26 06:54] LABS: Creatinine Clr Calc Pharmacy 97.2; Estimated Glomerular Filt Rate > 60
[2022-04-26 07:20] VITALS: BP 107/55; PULSE 70; RESP 20; TEMP 36.4; O2SAT 97
[2022-04-26] MEDS: Ferrous Sulfate 324 MG TABLET.DR PO (09:05)
[2022-04-26] MEDS: Lidocaine 4 % Patch ADH..PATCH 2 PATCH TRANSDERMA (09:05)
[2022-04-26] MEDS: Multivitamin TABLET 1 TAB PO (09:05)
[2022-04-26] MEDS: Folic Acid 1 MG TABLET PO (09:05)
[2022-04-26] MEDS: Benzonatate 100 MG CAPSULE 200 MG PO (09:06)
--- NOTE | 2022-04-26 10:45 | P.DS_ITS ---
DS: Providers Provider Date of Service: 04/26/22 Date of admission: 04/23/22 23:50 Date of discharge: 04/26/22 Primary care physician: Akilah Christian MD Consults: 04/25/22 08:07 Consult to Infectious Diseases Routine Consulting Provider: Zahraa Cole Reason for consultation: immunosuppressed PNA DS: Diagnosis Discharge Diagnosis (1) Immunocompromised state: Status: Acute (2) Multifocal pneumonia: Status: Acute (3) Lactic acid acidosis: Status: Acute (4) Anemia: Status: Acute DS: Summary Hospital Course Hospital Course: from history and physical by hospitalist Presley Nichols MD, 04/23/22: This is a pleasant 48-year-old male past medical history of rheumatoid arthritis on MTX and Humira, hypothyroidism, presents to the hospital with complaints of abnormal labs and generalized weakness.? Patient reports that he started feeling unwell about a week ago having significant fatigue, always feeling tired, having shortness of breath on exertion, cough, no significant sputum production, he went to [facility], had labs done which was significant for leukocytosis.? He had tested for COVID but he was negative.? He went home but continued to feel unwell, getting slightly worse.? 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 he reports that he continues to work but has just felt generally unwell.? He denies any fever, no chills, no chest pain, no abdominal pain, no nausea or vomiting, no diarrhea constipation, no urinary symptoms and no lower extremity edema. On arrival to the ED patient found to be hemodynamically stable no significant abnormal vitals Labs are significant for WBC count of 21.2, hemoglobin of 11.8, hematocrit 33.6, lactic acid of 3.1, total bili of 1.4, AST of 38, ALT of 41, CRP of 30.52, procalcitonin of 0.5, UA negative, chest x-ray showed multifocal pneumonia, COVID-19 negative Patient will be admitted for above. This 56yo M with RA on MTX + adalimumab presenting with weakness + cough was admitted for multifocal PNA. He was not hypoxic. He was initially treated with IV vancomycin and pipercillin/tazobactam. Respiratory pathogen panel was negative, as was MRSA nasal swab and HIV. Blood cultures were negative. ID was consulted. He was discharged on levofoxacin for 10 days. Pneumococcal and Legionella urinary antigen tests are pending at the time of discharge. Lactic acidosis resolved after IV fluid hydration. He was started on iron supplementation for mixed iron deficiency anemia/anemia of chronic disease. Time Spent with Patient Time attestation: Total time spent providing and/or coordinating discharge services: 35 Discharge coordination time: Greater than 30 minutes Quality: Safe Use of Opioids Does Pt have an Active Cancer Diagnosis on the Problem List?: No Quality: Stroke Does the patient have a stroke diagnosis?: No Physical Exam Vital Signs: Vital Signs: Last Vital Signs Temp 97.5 F 04/26/22 07:20 Pulse 70 04/26/22 07:20 Resp 20 04/26/22 07:20 BP 107/55 L 04/26/22 07:20 Pulse Ox 97 04/26/22 07:20 O2 Del Method 04/26/22 07:20 BMI result Body Mass Index 22.9 Gen: in no acute distress HEENT: sclera anicteric, moist mucus membranes Neck: supple Lungs: clear to auscultation bilaterally Heart: regular rate and rhythm, no murmurs Abd: soft, non-tender, non-distended Ext: no edema Skin: warm/well-perfused Neuro: alert and oriented x3, no focal findings Psych: appropriate affect DS: Data Data Completed and Pending Completed studies during hospitalization [Text1]: Laboratory Results WBC 12.3 X10*3/uL (4.8-10.8) H 04/26/22 06:08 RBC 3.42 X10*6/uL (4.60-5.80) L 04/26/22 06:08 Hgb 9.7 g/dl (14.0-18.0) L 04/26/22 06:08 Hct 27.5 % (42.0-52.0) L 04/26/22 06:08 MCV 80.4 fL (80.0-98.0) 04/26/22 06:08 MCH 28.4 pg (27.0-33.0) 04/26/22 06:08 MCHC 35.3 g/dl (31.0-36.0) 04/26/22 06:08 RDW 16.5 % (11.0-16.0) H 04/26/22 06:08 Plt Count 286 X10*3/uL (160-400) 04/26/22 06:08 MPV 8.7 fL (9.4-12.4) L 04/26/22 06:08 Immature Gran % (Auto) 0.9 % (0.0-0.4) H 04/24/22 04:20 Neut % (Auto) 80.6 % (45-73) H 04/24/22 04:20 Lymph % (Auto) 14.6 % (20-40) L 04/24/22 04:20 [place] % (Auto) 0.6 % (2-11) L 04/24/22 04:20 Eos % (Auto) 2.9 % (0-4) 04/24/22 04:20 Baso % (Auto) 0.4 % (0-2) 04/24/22 04:20 Lymph # (Auto) 1.8 X10*3/uL (1.2-4.9) 04/24/22 04:20 [place] # (Auto) 0.1 X10*3/uL (0.1-1.2) 04/24/22 04:20 Eos # (Auto) 0.4 X10*3/uL (0.0-0.4) 04/24/22 04:20 Baso # (Auto) 0.1 X10*3/uL (0.0-0.2) 04/24/22 04:20 Abs Immat Gran (auto) 0.11 X10*3/uL (0.00-0.03) H 04/24/22 04:20 Absolute Neuts (auto) 10.2 x10*3/uL (2.0-8.3) H 04/24/22 04:20 Absolute Nucleated RBC 0.000 X10*3/uL (0.0-0.012) 04/26/22 06:08 Nucleated RBC % (auto) 0.0 /100WBC (0.0-0.2) 04/26/22 06:08 Smear Tech's Comments VERIFIED 04/24/22 04:20 Absolute Retic 0.015 X10*6/uL (0.026-0.095) L 04/25/22 06:20 Percent Retic 0.4 % (0.5-1.8) L 04/25/22 06:20 Immature Retic Fraction 11.4 % (2.3-13.4) 04/25/22 06:20 Retic Hgb Equivalent 38.4 pg (30.0-35.0) H 04/25/22 06:20 Sodium 135 mmol/L (135-145) 04/25/22 06:20 Potassium 3.9 mmol/L (3.3-5.1) 04/25/22 06:20 Chloride 106 mmol/L (96-108) 04/25/22 06:20 Carbon Dioxide 22 mmol/L (22-29) 04/25/22 06:20 Anion Gap 11 (12-20) L 04/25/22 06:20 BUN 18 mg/dL (9-16) H 04/25/22 06:20 Creatinine 0.72 mg/dL (0.5-1.4) 04/26/22 06:08 Estim Creat Clear Calc 97.2 04/26/22 06:08 Estimated GFR > 60 04/26/22 06:08 Random Glucose 101 mg/dL (60-115) 04/25/22 06:20 Lactic Acid 3.1 mmol/L (0.5-2.0) H* 04/23/22 22:00 Lactic Acid F/U @ 2Hr 1.1 mmol/L (0.5-2.0) 04/24/22 00:31 Calcium 7.0 mg/dL (8.4-10.2) L 04/25/22 06:20 Iron 23 mcg/dL (45-160) L 04/25/22 06:20 TIBC 122 mcg/dL (228-428) L 04/25/22 06:20 % Saturation 19 % (15-50) 04/25/22 06:20 Unsat Iron Binding 99 ug/dL 04/25/22 06:20 Ferritin 1209 ng/mL (20-250) H 04/25/22 06:20 Total Bilirubin 1.5 mg/dL (0.0-1.0) H 04/25/22 06:20 AST 17 U/L (5-37) D 04/25/22 06:20 ALT 19 U/L (0-40) 04/25/22 06:20 Alkaline Phosphatase 96 U/L (39-117) D 04/25/22 06:20 C-Reactive Protein 12.37 mg/dL (< or = 0.50) H 04/25/22 06:20 Total Protein 4.2 g/dL (6.5-8.0) L D 04/25/22 06:20 Albumin 2.0 g/dL (3.5-5.0) L D 04/25/22 06:20 Procalcitonin 0.19 ng/mL 04/25/22 06:20 Urine Color YELLOW 04/23/22 21:48 Urine Appearance CLEAR 04/23/22 21:48 Urine pH 5.5 (5.0-8.0) 04/23/22 21:48 Ur Specific [place] >= 1.030 (1.005-1.025) H 04/23/22 21:48 Urine Protein TRACE MG/DL (NEG-TRACE) 04/23/22 21:48 Urine Glucose (UA) NEG MG/DL (NEG) 04/23/22 21:48 Urine Ketones 15 MG/DL (NEG) 04/23/22 21:48 Urine Blood NEG (NEG) 04/23/22 21:48 Urine Nitrite NEG (NEG) 04/23/22 21:48 Ur Leukocyte Esterase NEG (NEG) 04/23/22 21:48 Nasal Screen MRSA (PCR) NEGATIVE (Negative) 04/24/22 08:40 Nasal S. aureus Screen NEGATIVE (Negative) 04/24/22 08:40 Nasal MRSA/S.aureus Interp SEE NOTE 04/24/22 08:40 Random Vancomycin 11.7 mcg/mL (15-20) L 04/25/22 11:13 Respiratory Panel Ahuja See Note 04/24/22 08:39 Adenovirus (Rapid PCR) Not Detected (Not Detect.) 04/24/22 08:39 B.pert (TEM-PCR) Not Detected (Not Detect.) 04/24/22 08:39 B.parapertussis DNA PCR Not Detected (Not Detect.) 04/24/22 08:39 C. pneumoniae DNA (PCR) Not Detected (Not Detect.) 04/24/22 08:39 Coronavirus OC43 (PCR) Not Detected (Not Detect.) 04/24/22 08:39 Coronavirus HKU1 (PCR) Not Detected (Not Detect.) 04/24/22 08:39 Coronavirus 229E (PCR) Not Detected (Not Detect.) 04/24/22 08:39 COVID-19 (DARIO) Negative (Negative) 04/23/22 14:01 COVID-19 Clin Com See Note 04/23/22 14:01 Coronavirus NL63 (PCR) Not Detected (Not Detect.) 04/24/22 08:39 HIV 1&2 Ab/P24 Ag 4thGn Nonreactive (Nonreactive) 04/25/22 06:20 Human Metapneumovir PCR Not Detected (Not Detect.) 04/24/22 08:39 Influenza Type A (SUNDAY) Negative (Negative) 04/23/22 14:01 Influenza A (RT-PCR) Not Detected (Not Detect.) 04/24/22 08:39 Influenza Type B (SUNDAY) Negative (Negative) 04/23/22 14:01 Influenza B (RT-PCR) Not Detected (Not Detect.) 04/24/22 08:39 Influenza A & B Note See Note 04/23/22 14:01 M. pneumoniae (PCR) Not Detected (Not Detect.) 04/24/22 08:39 Parainfluenza 1 (PCR) Not Detected (Not Detect.) 04/24/22 08:39 Parainfluenza 2 (PCR) Not Detected (Not Detect.) 04/24/22 08:39 Parainfluenza 3 (PCR) Not Detected (Not Detect.) 04/24/22 08:39 Parainfluenza 4 (PCR) Not Detected (Not Detect.) 04/24/22 08:39 RSV (PCR) Not Detected (Not Detect.) 04/24/22 08:39 Entero/Rhino (PCR) Not Detected (Not Detect.) 04/24/22 08:39 SARS-CoV-2 RNA (RT-PCR) Not Detected (Not Detect.) 04/24/22 08:39 Ur Strep pneumoniae Ag Cancelled 04/24/22 08:41 Impressions Chest X-Ray 04/23/22 14:16 IMPRESSION: Very small bilateral pleural effusions and mild superjacent atelectasis/infiltrates. Chest CTA 04/23/22 23:10 IMPRESSION: 1. Limited exam but no central or large segmental pulmonary emboli are seen. 2. Multifocal moderately extensive tree-in-bud formation suggesting airway disease/multifocal pneumonia. VTE: negative Pending studies at discharge: urine Legionella and pneumococcal antigens, 04/24/22 Discharge Plan Discharge Patient Disposition: Home, Self-Care Discharge Diagnosis: pneumonia, anemia Referrals: Akilah Christian MD [Primary Care Provider] - 1 Week Discharge Medications: New levofloxacin 750 mg tablet 750 mg PO DAILY Qty: 10 0RF ferrous sulfate 324 mg (65 mg iron) Tablet,Delayed Release (Dr/Ec) 324 mg PO DAILY Qty: 30 0RF Continued multivitamin Tablet 1 tab PO DAILY methotrexate sodium 2.5 mg tablet 9 tab PO SA folic acid 1 mg tablet 1 tab PO DAILY levothyroxine 112 mcg tablet 1 tab PO DAILY@0600 Humira(CF) Pen 40 mg/0.4 mL pen injector kit 40 mg subcut Q2W Discharge Orders: Discharge Order (Routine); Ordered 04/26/22 Ordered By: Bienvenido Ceja Diet: Advance to usual diet Activity on Discharge: As tolerated Stand Alone Forms: Patient Portal Discharge page Care Plan Goals: cure of pneumonia resolution of anemia Health Concerns: pneumonia anemia Plan of Treatment: levofloxacin 750 mg daily for 10 days eat iron-rich foods and take ferrous sulfate 324 mg daily for 1 month Please follow up with your primary care doctor within 1 week. Please return to the hospital if you experience recurrent or worsening symptoms, Assessment: See Discharge Summary Patient Instructions: Pneumonia (DC)
--- NOTE | 2022-04-26 10:45 | MHC.CM.PN ---
PT TO [facility] HOME TODAY WITH NO SERVICES. PT WILL ARRANGE TRANSPORT
[2022-04-26 11:09] VITALS: BP 101/57; PULSE 68; RESP 20; TEMP 37; O2SAT 99
[2022-04-26 11:51] LABS: Vancomycin Random 13.9 mcg/mL (15-20)
--- NOTE | 2022-04-26 11:57 | HE.PHANOTE ---
Vancomycin Addendum Trough today at 13.9. Renal function is stable. Will continue same regimen vancomycin 1000 mg Q12H. Next trough tomorrow 04/27 @ 1100. Linnea PryorD
[2022-04-29 00:42] LABS: Strep Pneumo Ag urine Not Detected (Not Detected)
[2022-04-29 18:33] LABS: Legionella Ag Urine Not Detected (Not Detected)
== END 2022-04-26 14:30 | disposition home or self-care (01) | DRG 194 ==
LOC: HO.ED 23:47 → HO.IMC 04-24 00:13 → HO.EDOVER 04-24 01:25 → HO.IMC 04-25 15:07
PROVIDERS: Physician Assistant; Admitting Provider Internal Medicine; Emergency Provider Emergency Medicine; PCP Internal Medicine; Visit Provider Family Medicine
DX: J18.9 Pneumonia, unspecified organism (principal); D84.821 Immunodeficiency due to drugs; E87.2 Acidosis; E03.9 Hypothyroidism, unspecified; D50.9 Iron deficiency anemia, unspecified; D63.8 Anemia in other chronic diseases classified elsewhere; M06.9 Rheumatoid arthritis, unspecified; Z20.822 Contact with and (suspected) exposure to COVID-19; Z79.890 Hormone replacement therapy; Z79.899 Other long term (current) drug therapy
CPT/HCPCS: 36415; 71046; 71275; 80048; 80053; 80202; 81003; 82565; 82728; 83540; 83605; 84145; 85025; 85027; 85045; 86140; 87040; 87389; 87449; 87502; 87633; 87635; 87640; 87641; 87899; 97161; 99285; J1650; J2270; J2543; J3370; Q9967

== ENCOUNTER 2023-12-17 06:29 | Inpatient (IN) | payer OTHER, SELFPAY ==
--- NOTE | ~2023-12-17 | US_ITS ---
EXAMINATION: NONINVASIVE ASSESSMENT OF THE ARTERIES OF THE LEFT UPPER EXTREMITY Jules Potter MD CLINICAL INFORMATION: Discoloration of fingertips with blue hands. TECHNIQUE: Velocity measurements and color flow Doppler imaging were performed in the subclavian arteries, axillary arteries and brachial arteries as well as the radial and ulnar arteries in the left upper extremity only. COMPARISON: None available. FINDINGS: Triphasic flow is noted throughout the upper extremity with normal biphasic flow in the radial and ulnar arteries. Minimal plaque is seen. Velocities in cm per second were as follows: Subclavian artery proximal 90.9 Subclavian artery mid 92.6 Subclavian artery distal 71.1 Axillary artery 68.6 Brachial artery proximal 73.5 Brachial artery mid 94.9 Brachial artery distal 74.6 Radial artery mid 38.4 Ulnar artery mid 36.1 US/US arterial duplex UE LT IMPRESSION: No evidence of significant arterial occlusive disease in the left upper extremity.
--- NOTE | ~2023-12-17 | XR_ITS ---
EXAMINATION: LEFT HAND, LEFT FOOT CLINICAL INFORMATION: Left hand injury with infection and pain. Pain left toe (not specified) with concern for osteomyelitis COMPARISON: None available. TECHNIQUE: 3 views left hand and wrist, 3 views left foot FINDINGS: Left hand: Degenerative changes are present in the wrist with narrowing of the radiocarpal joint along with marked degenerative changes at the first carpometacarpal joint as well as the triscaphe joint. Milder degenerative changes are seen at the interphalangeal joints. Of note, there is soft tissue swelling involving the index finger and on the lateral radiograph there appears to be cortical described injection at the base of the distal phalanx suggestive of osteomyelitis. In the third digit, at the DIP joint, there is a large erosion present at the base of the distal phalanx. Left foot: Severe degenerative changes are present at the TMT joints with marked sclerosis and joint space narrowing and erosions. Milder degenerative changes are present at the interphalangeal joints. Some flexion deformities are present in the toes limiting evaluation. No definite bony destruction is seen in the toes to raise the question of osteomyelitis. XR/XR foot LT min 3V IMPRESSION: 1. Degenerative changes in the hand and wrist as described above. 2. Soft tissue swelling index finger with cortical destruction at the base of the distal phalanx suggestive of osteomyelitis. 3. Large erosion at the base of the distal phalanx of the third digit. 4. Severe degenerative changes in the TMT joints.
--- NOTE | ~2023-12-17 | XR_ITS ---
EXAMINATION: LEFT HAND, LEFT FOOT CLINICAL INFORMATION: Left hand injury with infection and pain. Pain left toe (not specified) with concern for osteomyelitis COMPARISON: None available. TECHNIQUE: 3 views left hand and wrist, 3 views left foot FINDINGS: Left hand: Degenerative changes are present in the wrist with narrowing of the radiocarpal joint along with marked degenerative changes at the first carpometacarpal joint as well as the triscaphe joint. Milder degenerative changes are seen at the interphalangeal joints. Of note, there is soft tissue swelling involving the index finger and on the lateral radiograph there appears to be cortical described injection at the base of the distal phalanx suggestive of osteomyelitis. In the third digit, at the DIP joint, there is a large erosion present at the base of the distal phalanx. Left foot: Severe degenerative changes are present at the TMT joints with marked sclerosis and joint space narrowing and erosions. Milder degenerative changes are present at the interphalangeal joints. Some flexion deformities are present in the toes limiting evaluation. No definite bony destruction is seen in the toes to raise the question of osteomyelitis. XR/XR hand LT min 3V IMPRESSION: 1. Degenerative changes in the hand and wrist as described above. 2. Soft tissue swelling index finger with cortical destruction at the base of the distal phalanx suggestive of osteomyelitis. 3. Large erosion at the base of the distal phalanx of the third digit. 4. Severe degenerative changes in the TMT joints.
[2023-12-17 06:40] VITALS: BP 140/77; PULSE 68; RESP 17; TEMP 36.6; O2SAT 100; BMI 23.0
[2023-12-17 07:15] LABS: MANUAL DIFF FLAG NO
[2023-12-17 07:18] LABS: Basophils Absolute Auto 0.1 X10*3/uL (0.0-0.2); Basophils Percent Auto 0.7 % (0-2); Eosinophils Absolute Auto 0.7 X10*3/uL (0.0-0.4); Eosinophils Percent Auto 6.5 % (0-4); Hematocrit 38.9 % (42.0-52.0); Hemoglobin 12.9 g/dl (14.0-18.0); Imm Gran Abs Auto 0.05 X10*3/uL (0.00-0.03); Imm Gran Pct Auto 0.5 % (0.0-0.4); Lymphocytes Absolute Auto 3.1 X10*3/uL (1.2-4.9); Lymphocytes Percent Auto 28.3 % (20-40); Mean Corpuscular HGB Conc 33.2 g/dl (31.0-36.0); Mean Corpuscular Hemoglobin 29.1 pg (27.0-33.0); Mean Corpuscular Volume 87.8 fL (80.0-98.0); Mean Platelet Volume 8.6 fL (9.4-12.4); Neutrophils Absolute Auto 6.1 x10*3/uL (2.0-8.3); Platelet Count 277 X10*3/uL (160-400); Red Blood Count 4.43 X10*6/uL (4.60-5.80); Red Cell Distribution Width 19.9 % (11.0-16.0); White Blood Count 11.1 X10*3/uL (4.8-10.8)
[2023-12-17 07:45] LABS: Alanine Aminotransferase 21 U/L (0-40); Albumin Level 3.6 g/dL (3.5-5.0); Alkaline Phosphatase 87 U/L (39-117); Anion Gap 9 (12-20); Aspartate Amino Transferase 23 U/L (5-37); Bilirubin Total 0.3 mg/dL (0.0-1.0); Blood Urea Nitrogen 36 mg/dL (9-16); Calcium 9.2 mg/dL (8.4-10.2); Carbon Dioxide 25 mmol/L (22-29); Chloride 109 mmol/L (96-108); Creatinine Clr Calc Pharmacy 70.4; Estimated Glomerular Filt Rate > 60; Glucose Random 92 mg/dL (60-115); Potassium 4.6 mmol/L (3.3-5.1); Sodium 138 mmol/L (135-145); Total Protein 6.7 g/dL (6.5-8.0)
--- NOTE | 2023-12-17 08:13 | ED_ITS ---
HPI - General Adult General Chief complaint: Extremity Problem Stated complaint: finger infection Time Seen by Provider: 12/17/23 08:12 Source: patient Mode of arrival: ambulatory Limitations: no limitations History of Present Illness HPI narrative: Patient is a 58 year old assigned male at with a history of anemia and arthritis presenting to the emergency department today with a left index finger and left 4th toe infections. Patient states that over the last 2 weeks he has been having drainage from his left index finger and left 4th toes. Patient states that he was on antibiotics however, the infections seem to be getting worse. Patient states that his fingers always have a blue tint to them because of an arthritis he has. Patient denies any dizziness, lightheadedness, abdominal pain, nausea, vomiting, fever, chills, blurry vision, double vision, loss of vision, chest pain, difficulty breathing, shortness of breath, back pain, night sweats, pain with urination, increased urinary frequency, increased urinary urgency, blood in his urine or stool, syncope or a near syncopal episode, recent trauma or falls, bowel incontinence, bladder incontinence, bowel retention, bladder retention, or any other complaints at this time. Onset (ago): week(s) (2) Relieving factors: none Exacerbating factors: none Associated symptoms: denies other symptoms Treatments prior to arrival: other (antibiotic) Related Data Home Medications ?Medication ?Instructions ?Recorded ?Confirmed adalimumab 40 mg/0.4 mL 40 mg subcut Q2W 04/24/22 04/24/22 subcutaneous pen kit (Humira(CF) Pen) folic acid 1 mg tablet 1 tab PO DAILY 04/24/22 04/24/22 levothyroxine 112 mcg tablet 1 tab PO DAILY@0600 04/24/22 04/24/22 methotrexate sodium 2.5 mg tablet 9 tab PO SA 04/24/22 04/24/22 multivitamin 1 tab PO DAILY 04/24/22 04/24/22 Previous Rx's ?Medication ?Instructions ?Recorded ferrous sulfate 324 mg (65 mg 324 mg PO DAILY #30 tabs 04/26/22 iron) tablet,delayed release levofloxacin 750 mg tablet 750 mg PO DAILY #10 tabs 04/26/22 Allergies Allergy/AdvReac Type Severity Reaction Status Date / Time No Known Allergies Allergy Verified 12/17/23 06:48 Review of Systems 2 Constitutional: Constitutional: Reports no additional constitutional complaints, Denies chills, Denies fever(s) and Denies night sweats Eyes: Eyes: Reports no additional eye complaints, Denies blurry vision, Denies change in vision, Denies diplopia, Denies eye discharge, Denies loss of vision and Denies eye pain ENT: Denies dizziness Cardiovascular: Cardiovascular: Reports no additional cardiovascular complaints, Denies chest pain, Denies lightheadedness, Denies Loss of Consciousness and Denies dyspnea Respiratory: Respiratory: Reports no additional respiratory complaints and Denies dyspnea Gastrointestinal: Gastrointestinal: Reports no additional gastrointestinal complaints, Denies abdominal pain, Denies melena, Denies hematochezia, Denies change in bowel habits and Denies change in stool character Genitourinary: Genitourinary: Reports no additional male genitourinary complaints, Denies hematuria, Denies oliguria, Denies difficulty urinating, Denies dysuria, Denies urinary frequency, Denies urinary hesitancy, Denies urinary incontinence and Denies urinary urgency Musculoskeletal: Musculoskeletal: Reports no additional musculoskeletal complaints, Denies numbness and Denies tingling Comments: left index finger swelling / drainage, left 4th toe swelling / draining Neurologic: Denies dizziness, Denies loss of vision, Denies numbness and Denies tingling Psychiatric: Psychiatric: Reports no additional psychiatric complaints Endocrine: Endocrine: Reports no additional endocrine complaints Hematologic/Lymphatic: Hematologic/Lymphatic: Reports no additional hematologic/lymphatic complaints Allergic/Immunologic: Allergic/Immunologic: Reports no additional allergic/immunologic complaints PMFSH Past Medical History Attestation statement: The following information was validated with the patient. Source: old records reviewed and nursing notes reviewed Medical History Hypothyroidism Rheumatoid arthritis Surgical History No pertinent past surgical history Family History Family History Other No family history of coronary artery disease Social History Social History Household Members: Spouse Housing: House Alcohol intake: never Patient Tobacco Use Status: Never used Tobacco Smoked in Last 30 Days: No Use of substances other than those prescribed or required for medical reasons: No Advance Directives: No Advance Directives Information Provided: No service: No Current occupational status: employed Physical Exam ED Vital Signs: Vital Signs - 24 hr 12/17/23 06:40 12/17/23 09:26 12/17/23 11:05 Temperature 98 F 97.7 F Pulse Rate 68 77 80 Respiratory Rate 17 16 16 Blood Pressure 140/77 H 141/81 H 129/83 Pulse Oximetry 100 100 100 Oxygen Delivery Method Room Air Room Air Room Air BMI result Body Mass Index 23.0 Const General: cooperative, no acute distress, alert and awake Nutritional Appearance: well nourished Orientation/consciousness: patient oriented x3 Limitations: no limitations HENMT Head: Yes normal to inspection and Yes atraumatic Ears: hearing grossly normal bilaterally and external ears normal General nose exam: Normal external nose present, no nasal discharge noted and no epistaxis Face and sinus: Yes normal facial exam, No abrasion and No laceration Mouth: Normal oral and palatal mucosa present, no drooling and no muffled voice Eyes General: appearance normal, both eyes and all related structures Periorbital: periorbital findings normal Eyelids: Yes eyelids normal Conjunctivae: conjunctivae normal Pupils: Equal, round and reactive pupils present EOM: EOMs intact bilaterally Neck Neck: Yes normal visual inspection, Yes full ROM and Yes no lymphadenopathy Chest Chest palpation & inspection: normal inspection of the chest Resp Effort & Inspection: normal respiratory effort and able to speak in complete sentences GI Inspection: Yes normal to inspection Neuro General: patient oriented x3 and moves all extremities Cranial nerves: Yes Equal, round and reactive pupils present Cognition (Neuro): normal cognition Motor exam (neuro): 5/5 motor strength present throughout Sensory Exam: Normal double simultaneous stimulation for sensation Coordination: [id number] test normal Extrem Other: General: Yes full ROM and Yes capillary refill normal Psych Appearance: grossly normal Mental Status: mental status grossly normal Affect: normal affect Attitude: cooperative Thought process: Normal thought process present Thought content: Normal thought content present Insight: Good insight present (Psych) Medications Administered Generic Name Dose Route Start Last Admin Trade Name Freq PRN Reason Stop Dose Admin Vancomycin HCl 1,500 mg/ 500 mls @ 333.333 mls/hr 12/17/23 10:57 12/17/23 11:52 Sodium Chloride IV 12/17/23 12:26 333.33 mls/hr ONCE ONE Administration Discontinued Medications Generic Name Dose Route Start Last Admin Trade Name Henry PRN Reason Stop Dose Admin Ceftriaxone Sodium 1 gm/ 50 mls @ 100 mls/hr 12/17/23 08:22 12/17/23 10:45 Sodium Chloride IV 12/17/23 08:51 Infused ONCE ONE Infusion Oxycodone HCl 10 mg 12/17/23 08:43 12/17/23 09:45 Oxycodone Hcl Immed Release 5 Mg Tablet PO 12/17/23 08:44 10 mg ONCE ONE Administration Medical Decision Making Medical Decision Making [facility] Narrative: Patient is a 58 year old assigned male at with a history of anemia and arthritis presenting to the emergency department today with left index finger and left 4th toe pain. Patient's physical exam was as noted in the physical exam portion of this note. Patient's blood work showed a mildly elevated WBC count of 11.1 and CRP of 0.60. The rest of the patient's labs were unremarkable. Patient's left hand x-ray showed evidence of osteomyelitis of the index finger and the left foot x-ray showed no concern for osteomyelitis. Patient's clinical presentation is not consistent with sepsis (@1040). Patient given IV Ceftriaxone and Vancomycin. I spoke to the hospitalist team who agreed to admission. I explained my physical exam findings as well as all test results to the patient. I answered all questions asked by the patient. Patient verbalized agreement and understanding with this treatment plan and admission. Differential Diagnosis Differential Diagnoses: The differential diagnosis associated with the presentation includes Osteomyelitis Chronic wounds Admission/Observation Consideration of admission/observation: Escalation of care including admission/observation considered Patient admitted. Consult Healthcare Provider Management of the patient was discussed with: Hospitalist (agreed to admission.) Lab Data [facility] Lab Attestation statement: I reviewed the patient's lab results. My interpretation of these results are in the MDM Rationale portion of this note. 12/17/23 07:12 12/17/23 07:12 Labs: Lab Results 12/17/23 12/17/23 Range/Units 07:12 09:10 WBC 11.1 H (4.8-10.8) X10*3/uL RBC 4.43 L D (4.60-5.80) X10*6/uL Hgb 12.9 L D (14.0-18.0) g/dl Hct 38.9 L D (42.0-52.0) % MCV 87.8 (80.0-98.0) fL MCH 29.1 (27.0-33.0) pg MCHC 33.2 (31.0-36.0) g/dl RDW 19.9 H (11.0-16.0) % Plt Count 277 (160-400) X10*3/uL MPV 8.6 L (9.4-12.4) fL Immature Gran % (Auto) 0.5 H (0.0-0.4) % Neut % (Auto) 55.0 (45-73) % Lymph % (Auto) 28.3 (20-40) % [place] % (Auto) 9.0 (2-11) % Eos % (Auto) 6.5 H (0-4) % Baso % (Auto) 0.7 (0-2) % Lymph # (Auto) 3.1 (1.2-4.9) X10*3/uL [place] # (Auto) 1.0 (0.1-1.2) X10*3/uL Eos # (Auto) 0.7 H (0.0-0.4) X10*3/uL Baso # (Auto) 0.1 (0.0-0.2) X10*3/uL Abs Immat Gran (auto) 0.05 H (0.00-0.03) X10*3/uL Absolute Neuts (auto) 6.1 (2.0-8.3) x10*3/uL Absolute Nucleated RBC 0.000 (0.0-0.012) X10*3/uL Nucleated RBC % (auto) 0.0 (0.0-0.2) /100WBC ESR 9 (0-15) MM/HR Sodium 138 (135-145) mmol/L Potassium 4.6 (3.3-5.1) mmol/L Chloride 109 H (96-108) mmol/L Carbon Dioxide 25 (22-29) mmol/L Anion Gap 9 L (12-20) BUN 36 H (9-16) mg/dL Creatinine 0.97 (0.5-1.4) mg/dL Estim Creat Clear Calc 70.4 Estimated GFR > 60 Random Glucose 92 (60-115) mg/dL Estimat Average Glucose 108 mg/dL Hemoglobin A1c % 5.4 (<6.0) % Lactic Acid 0.9 (0.5-2.0) mmol/L Calcium 9.2 D (8.4-10.2) mg/dL Total Bilirubin 0.3 (0.0-1.0) mg/dL AST 23 (5-37) U/L ALT 21 (0-40) U/L Alkaline Phosphatase 87 (39-117) U/L C-Reactive Protein 0.60 H (< or = 0.50) mg/dL Total Protein 6.7 (6.5-8.0) g/dL Albumin 3.6 (3.5-5.0) g/dL Independent Interpretation I performed an independent interpretation of an: Plain X-Ray Interpretation: My interpretation is in agreement with the radiologist's impression of these imaging studies. - EXAMINATION: LEFT HAND, LEFT FOOT CLINICAL INFORMATION: Left hand injury with infection and pain. Pain left toe (not specified) with concern for osteomyelitis COMPARISON: None available. TECHNIQUE: 3 views left hand and wrist, 3 views left foot FINDINGS: Left hand: Degenerative changes are present in the wrist with narrowing of the radiocarpal joint along with marked degenerative changes at the first carpometacarpal joint as well as the triscaphe joint. Milder degenerative changes are seen at the interphalangeal joints. Of note, there is soft tissue swelling involving the index finger and on the lateral radiograph there appears to be cortical described injection at the base of the distal phalanx suggestive of osteomyelitis. In the third digit, at the DIP joint, there is a large erosion present at the base of the distal phalanx. Left foot: Severe degenerative changes are present at the TMT joints with marked sclerosis and joint space narrowing and erosions. Milder degenerative changes are present at the interphalangeal joints. Some flexion deformities are present in the toes limiting evaluation. No definite bony destruction is seen in the toes to raise the question of osteomyelitis. XR/XR hand LT min 3V IMPRESSION: 1. Degenerative changes in the hand and wrist as described above. 2. Soft tissue swelling index finger with cortical destruction at the base of the distal phalanx suggestive of osteomyelitis. 3. Large erosion at the base of the distal phalanx of the third digit. 4. Severe degenerative changes in the TMT joints. Dictated By: Jules Potter MD Signed By: Electronically signed by Jules Potter MD 12/17/23 1025 - EXAMINATION: NONINVASIVE ASSESSMENT OF THE ARTERIES OF THE LEFT UPPER EXTREMITY Jules Potter MD CLINICAL INFORMATION: Discoloration of fingertips with blue hands. TECHNIQUE: Velocity measurements and color flow Doppler imaging were performed in the subclavian arteries, axillary arteries and brachial arteries as well as the radial and ulnar arteries in the left upper extremity only. COMPARISON: None available. FINDINGS: Triphasic flow is noted throughout the upper extremity with normal biphasic flow in the radial and ulnar arteries. Minimal plaque is seen. Velocities in cm per second were as follows: Subclavian artery proximal 90.9 Subclavian artery mid 92.6 Subclavian artery distal 71.1 Axillary artery 68.6 Brachial artery proximal 73.5 Brachial artery mid 94.9 Brachial artery distal 74.6 Radial artery mid 38.4 Ulnar artery mid 36.1 US/US arterial duplex UE LT IMPRESSION: No evidence of significant arterial occlusive disease in the left upper extremity. Dictated By: Jules Potter MD Signed By: Electronically signed by Jules Potter MD 12/17/23 1014 Radiology Impression Discussion of test interpretation with radiology: I have reviewed the radiologist's reading. Critical Care Time Critical Care Time Critical Care Time: Yes Total Critical Care Time: 129 Attestation: I spent 129 minutes of Critical Care Time with this patient. This does not include time spent on separately reported billable procedures. Discharge Plan Discharge Clinical Impression: Osteomyelitis Patient Disposition: Admitted As Inpatient Print Language: [place]
[2023-12-17 09:01] LABS: Estimated Average Glucose 108 mg/dL; Hemoglobin A1c % 5.4 % (<6.0)
--- NOTE | 2023-12-17 09:17 | PC.NURSE ---
PT IS A/O X 4 NO SOB/MEL NOTED. SPEAKS IN FULL SENTENCES, PT ALL FINGERS ON L HAND ARE COLD WITH PURPLE DISCOLORATION. PT STATES THAT HE HAS RHEUMATOID ARTHRITIS TO HIS FINGERS AND TOES. PT LEFT 4TH TOE ON HAS A DIME SIZE STAGE 2 OPEN. PT AWARE OF PLAN OF CARE. WILL CONTINUE TO MONITOR
[2023-12-17 09:23] LABS: Erythrocyte Sedimentation Rate 9 MM/HR (0-15)
[2023-12-17 09:26] VITALS: BP 141/81; PULSE 77; RESP 16; O2SAT 100
[2023-12-17 09:29] LABS: Lactic Acid 0.9 mmol/L (0.5-2.0)
[2023-12-17] MEDS: oxyCODONE HCl Immed Release 5 MG TABLET 10 MG PO (09:45)
[2023-12-17] MEDS: cefTRIAXone sodium 1 GM in 0.9 % Sodium Chloride 50 ML IV (10:13)
[2023-12-17 11:05] VITALS: BP 129/83; PULSE 80; RESP 16; TEMP 36.5; O2SAT 100
--- NOTE | 2023-12-17 11:23 | P.HPHOSP_ITS ---
<Statement entered by Danisha Palacios MD - 12/20/23 15:02> the patient was seen and evaluated with LORAINE Emanuel. I agree with his note, assessment and plan with the following. In summary, A 58 years old male with PMH of RA who presents with left index finger wound and swelling. XR concerning for possible osteomyelitis. # Left hand index open wound with cellulitis X-ray of left hand showing cortical destruction at base of distal phalanx suggestive of osteomyelitis ESR and CRP low normal, less likely OM , XR findings related to hx RA Not septic Start Vancomycin IV ID consult Follow cultures Rest of evaluations by LORAINE note. History of Present Illness Date of Service: 12/17/23 Attending physician on admission: Danisha Palacios Chief Complaint: Worsening finger infections Pt is a 58-year-old male with a PMH significant for rheumatoid arthritis and hypothyroidism who presents to the ED with?worsening left finger infection. Patient states symptoms began approximately 2 weeks ago when he noticed redness, swelling, pain, and blisters on the end of his index finger on left hand. Called PCP prescribed Augmentin x7 days. Patient reports completing course of antibiotics 12/12/2023 though symptoms persisted, including an increase in pain. Patient had kept finger bandaged during this time. Last night patient reports soaking finger in hydrogen peroxide for 20-30 minutes. This morning patient noticed purulent, odorless drainage from open wound on his finger and decided to come in to the ED for further evaluation. Denies fever, chills, nausea, vomiting. Patient also complains of open sore and redness 3rd digit left foot that began a few weeks ago, around the same time as his finger. He has not noticed any drainage or significant pain from this area. Of note, patient has history of rheumatoid arthritis and notes tips of his fingers become discolored during the winter months. No chest pain/pressure, palpitations. Denies shortness of breath. In the ED pt was mildly hypertensive up to 141/81, vitals otherwise WNL. Labs were significant for mild leukocytosis of 11.1, and BUN 36, otherwise grossly unremarkable and baseline for patient. ESR 9, CRP 0.60. Stable H&H of 12.9/38.9. No significant electrolyte abnormalities. A1c 5.4. Hepatic function baseline. X-ray of left hand found soft tissue swelling of index finger with cortical destruction at base of distal phalanx suggestive of osteomyelitis and large erosion at the base of the distal phalanx of the 3rd digit. X-ray of left foot found severe degenerative changes at TMT joints, but no definitive bony destruction to raise suspicion of osteomyelitis. Duplex scan of upper extremity found no evidence of significant arterial occlusive disease. Pt was treated with oxycodone, ceftriaxone, and vancomycin. Pt will be admitted to the hospital for treatment and further evaluation of index finger on left hand infection that failed outpatient therapy. Review of Systems 2 Review of Systems: Redness, swelling, pain, purulent discharge from left index finger Redness and open sore 3rd digit of left foot Denies fever, chills, nausea, vomiting No abdominal pain Denies chest pain/pressure, palpitations No shortness a breath PMFSH Medical History Hypothyroidism Rheumatoid arthritis Family History Other No family history of coronary artery disease Surgical History No pertinent past surgical history Social History Household Members: Spouse Housing: House Alcohol intake: never Patient Tobacco Use Status: Never used Tobacco Smoked in Last 30 Days: No Use of substances other than those prescribed or required for medical reasons: No Advance Directives: No Advance Directives Information Provided: No service: No Current occupational status: employed Meds Allergies Allergy/AdvReac Type Severity Reaction Status Date / Time No Known Allergies Allergy Verified 12/17/23 06:48 Active Medications: Current Medications Vancomycin HCl 1,500 mg/ (Sodium Chloride) 500 mls @ 333.333 mls/hr IV ONCE ONE Stop: 12/17/23 12:26 Home Medications ?Medication ?Instructions ?Recorded ?Confirmed ?Last Taken ?Type adalimumab 40 mg/0.4 mL 40 mg subcut Q2W 04/24/22 04/24/22 04/19/22 History subcutaneous pen kit (Humira(CF) Pen) folic acid 1 mg tablet 1 tab PO DAILY 04/24/22 04/24/22 04/23/22 History levothyroxine 112 mcg tablet 1 tab PO DAILY@0600 04/24/22 04/24/22 04/23/22 History methotrexate sodium 2.5 mg tablet 9 tab PO SA 04/24/22 04/24/22 04/19/22 History multivitamin 1 tab PO DAILY 04/24/22 04/24/22 04/23/22 History Physical Exam 2 Vital Signs and Narrative: Vital Signs: Last Vital Signs Temp 97.7 F 12/17/23 11:05 Pulse 80 12/17/23 11:05 Resp 16 12/17/23 11:05 BP 129/83 12/17/23 11:05 Pulse Ox 100 12/17/23 11:05 O2 Del Method Room Air 12/17/23 11:05 BMI result Body Mass Index 23.0 Constitutional: Alert, in no acute distress. Mental Status: Oriented to person, place and time. Eyes: Pupils are equal, round, and reactive to light. Ear, Nose, and Throat: Oropharynx clear, mucous membranes moist. Ears and nose without deformities. Trachea midline. Respiratory: Clear to auscultation bilaterally. No wheezing, rales, or rhonchi. Cardiovascular: S1, S2 regular. No murmurs, rubs, or gallops. Gastrointestinal: Abdomen soft, non-tender, non-distended. Normal bowel sounds. Neurologic: Cranial nerves II-XII are grossly intact bilaterally. No focal neurological deficits. Moves all extremities spontaneously. Skin: Warm, dry. Extremities: No edema. Blue discoloration on distal phalanxes of hands bilaterally. Normal capillary refill. Chronic rheumatoid arthritis changes to hands bilaterally left>right. Erythema, warmth, swelling, and open laceration on distal aspect of 1st phalanx on left hand, as pictured below. Ulceration on dorsal aspect 3rd digit on left foot, as pictured below. Psychiatric: Normal mood and affect. Results Labs 12/17/23 07:12 12/17/23 07:12 Labs: Laboratory Results - last 24 hr 12/17/23 12/17/23 07:12 09:10 MCV 87.8 MCH 29.1 MCHC 33.2 RDW 19.9 H Plt Count 277 MPV 8.6 L Immature Gran % (Auto) 0.5 H Neut % (Auto) 55.0 Lymph % (Auto) 28.3 [place] % (Auto) 9.0 Eos % (Auto) 6.5 H Baso % (Auto) 0.7 Lymph # (Auto) 3.1 [place] # (Auto) 1.0 Eos # (Auto) 0.7 H Baso # (Auto) 0.1 Abs Immat Gran (auto) 0.05 H Absolute Neuts (auto) 6.1 Absolute Nucleated RBC 0.000 Nucleated RBC % (auto) 0.0 ESR 9 Anion Gap 9 L Estim Creat Clear Calc 70.4 Estimated GFR > 60 Random Glucose 92 Estimat Average Glucose 108 Hemoglobin A1c % 5.4 Lactic Acid 0.9 Calcium 9.2 D Total Bilirubin 0.3 AST 23 ALT 21 Alkaline Phosphatase 87 C-Reactive Protein 0.60 H Total Protein 6.7 Albumin 3.6 Imaging Radiologist's Impressions: Impressions Duplex Scan Upper Extremity Artery 12/17/23 09:00 IMPRESSION: No evidence of significant arterial occlusive disease in the left upper extremity. Foot X-Ray 12/17/23 09:43 IMPRESSION: 1. Degenerative changes in the hand and wrist as described above. 2. Soft tissue swelling index finger with cortical destruction at the base of the distal phalanx suggestive of osteomyelitis. 3. Large erosion at the base of the distal phalanx of the third digit. 4. Severe degenerative changes in the TMT joints. Hand X-Ray 12/17/23 09:43 IMPRESSION: 1. Degenerative changes in the hand and wrist as described above. 2. Soft tissue swelling index finger with cortical destruction at the base of the distal phalanx suggestive of osteomyelitis. 3. Large erosion at the base of the distal phalanx of the third digit. 4. Severe degenerative changes in the TMT joints. Assessment and Plan (1) Cellulitis: Status: Acute Plan Pt is a 58-year-old male with a PMH significant for rheumatoid arthritis and hypothyroidism who presents to the ED with?worsening left finger infection. Pt will be admitted to the hospital for treatment and further evaluation of index finger on left hand infection that failed outpatient therapy. Left hand index cellulitis with question of osteomyelitis Pt with redness, blisters, swelling, pain x2.5 weeks; completed 7 day course of Augmentin on 12/11 X-ray of left hand showing cortical destruction at base of distal phalanx suggestive of osteomyelitis ESR and CRP WNL, no fever, mild leukocytosis of 11.1 Pt does not meet SIRS criteria, no sepsis Will treat with vanco Analgesics for pain management ID consult for possible osteo Follow cultures Third digit of left foot ulceration Wound care consult Pt not diabetic Being covered with antibiotics as above Rheumatoid arthritis Continue methotrexate, Humira, folic acid Hypothyroidism Continue levothyroxine Full Code Attending:?Dr. Palacios DVT Prophylaxis: Lovenox Pt will require a hospitalization of at least two nights for treatment of?worsening left index finger cellulitis. Given that patient's infection failed outpatient therapy on p.o. antibiotics, patient required hospitalization for the administration of IV antibiotics and specialist consultation with Infectious Disease for possible osteomyelitis. Quality Stroke Does the patient have a stroke diagnosis?: No VTE Prior VTE?: No VTE Risk Level:: Medical - moderate - high VTE Device Contraindication: Treatment Not Indicated VTE Drug Contraindication: N/A - Med Ordered
--- NOTE | 2023-12-17 11:47 | PC.NURSE ---
HOSP PA-C AT BEDSIDE, PT AWARE OF PLAN OF CARE.
[2023-12-17] MEDS: vancomycin HCL 1,500 MG in 0.9 % Sodium Chloride 500 ML 333.33 MG IV (11:52)
--- NOTE | 2023-12-17 12:47 | PHA.PROG ---
Admission Date/Time: December 17, 2023 11:58 Indication: skin Weight in k.596 kg Adjusted body weight in K.596 Serum Creatinine - Last 168 Hours 12/17/23 07:12 Creatinine 0.97 Estimated CrCl and GFR - Last 168 Hours 12/17/23 07:12 Estim Creat Clear Calc 70.4 Estimated GFR > 60 Vancomycin Loading Dose: 1,500mg Current Vancomycin Dosing Regimen: 1,500mg Q24H Vancomycin Monitoring using AUC goal of 400 - 600 range with trough as surrogate marker: 472 Date and Time for next Vancomycin Level to be drawn: 12/19/23 10:00 Pharmacist Comments on Vancomycin Plan: Vancomycin dosing will take advantage of tsumobi as a clinical decision support tool that uses Bayesian modeling to calculate individual patient's pharmacokinetic parameters and forecast the patient's drug concentration time course with the target goal AUC 24 range of 400 - 600 mg/L/hr.
[2023-12-17 14:22] VITALS: BP 136/82; PULSE 73; RESP 16; TEMP 36.4; O2SAT 100
[2023-12-17] MEDS: Enoxaparin Sodium 40 MG/0.4 ML SYRINGE SUBCUT (14:38)
[2023-12-17] MEDS: oxyCODONE HCl Immed Release 5 MG TABLET PO (14:39)
[2023-12-17] MEDS: Docusate Sodium 100 MG CAPSULE PO (14:39)
[2023-12-17] MEDS: Acetaminophen 325 MG TABLET 650 MG PO (14:39)
--- NOTE | 2023-12-17 15:13 | PHA.MEDREC ---
Pharmacy Consult ? Medication Reconciliation Pharmacy has completed the medication reconciliation. Spoke to patient and confirmed medication list. Patient takes Humira every 2 weeks on thursday and 9 tablets of methotrexate weekly also on saturdays.
[2023-12-17] MEDS: 0.9 % Sodium Chloride Flush 3 ML SYRINGE IVFLUSH ×2 (17:47→20:43)
[2023-12-17 18:00] VITALS: BP 139/65; PULSE 73; RESP 18; TEMP 36; O2SAT 97
[2023-12-17 19:24] VITALS: BP 118/62; PULSE 78; RESP 20; TEMP 36.3; O2SAT 100
[2023-12-17] MEDS: NaPROXEN 250 MG TABLET PO (20:41)
[2023-12-18 03:29] VITALS: BP 108/60; PULSE 57; RESP 16; TEMP 36.6; O2SAT 99
[2023-12-18] MEDS: Levothyroxine Sodium 112 MCG TABLET PO (05:08)
[2023-12-18 05:33] LABS: Hematocrit 38.7 % (42.0-52.0); Hemoglobin 12.8 g/dl (14.0-18.0); Mean Corpuscular HGB Conc 33.1 g/dl (31.0-36.0); Mean Corpuscular Hemoglobin 29.2 pg (27.0-33.0); Mean Corpuscular Volume 88.4 fL (80.0-98.0); Mean Platelet Volume 8.7 fL (9.4-12.4); Platelet Count 259 X10*3/uL (160-400); Red Blood Count 4.38 X10*6/uL (4.60-5.80); White Blood Count 9.8 X10*3/uL (4.8-10.8)
[2023-12-18 05:47] LABS: Anion Gap 10 (12-20); Blood Urea Nitrogen 27 mg/dL (9-16); Carbon Dioxide 25 mmol/L (22-29); Chloride 108 mmol/L (96-108); Creatinine Clr Calc Pharmacy 73.4; Estimated Glomerular Filt Rate > 60; Glucose Random 91 mg/dL (60-115); Potassium 4.5 mmol/L (3.3-5.1); Sodium 138 mmol/L (135-145)
[2023-12-18 07:38] VITALS: BP 117/67; PULSE 72; RESP 18; TEMP 36; O2SAT 100
[2023-12-18] MEDS: Multivitamin TABLET 1 TAB PO (08:39)
[2023-12-18] MEDS: 0.9 % Sodium Chloride Flush 3 ML SYRINGE IVFLUSH ×3 (08:39→20:34)
[2023-12-18] MEDS: NaPROXEN 250 MG TABLET PO ×3 (08:39→20:34)
[2023-12-18] MEDS: Folic Acid 1 MG TABLET PO (08:39)
[2023-12-18] MEDS: predniSONE 20 MG TABLET 40 MG PO (10:31)
--- NOTE | 2023-12-18 11:19 | HO.PM.IMPN ---
Subjective Subjective Date of Service: 12/18/23 Interval History: Seen and evaluated this morning Feels little better less discharge from the finger no fever or chills Review of Systems Review of Systems: Yes all other systems are reviewed and are negative Physical Exam Vital Signs: Vital Signs: Last Vital Signs Temp 96.8 F 12/18/23 07:38 Pulse 72 12/18/23 07:38 Resp 18 12/18/23 07:38 BP 117/67 12/18/23 07:38 Pulse Ox 100 12/18/23 07:38 O2 Del Method Room Air 12/18/23 07:38 BMI result Body Mass Index 23.0 Const: Other: Constitutional : Awake, interactive, not in distress Neck : Normal inspection, Supple Cardiovascular : RRR, no JVP, no lower extremity edema Respiratory : good bilateral air entry, no crackles, wheezes or rhonchi Gastrointestinal: soft, lax, Normal bowel sounds, Non tender Skin : Warm, Dry, Lt foot toe ulcer clean, no drianage. LEft hand index wound improving, still with tenderness, erythema and swelling, no drainage. Neurological : Alert & oriented x3, No focal deficit Objective Data Active Medications Acetaminophen (Acetaminophen 325 Mg Tablet) 650 mg PO Q6H PRN PRN Reason: Pain, Mild (Pain Scale 1-3) Last Admin: 12/17/23 14:39 Dose: 650 mg Documented By: YAYO Benzonatate (Benzonatate 100 Mg Capsule) 100 mg PO TID PRN PRN Reason: Cough Docusate Sodium (Docusate Sodium 100 Mg Capsule) 100 mg PO DAILY PRN PRN Reason: Constipation Last Admin: 12/17/23 14:39 Dose: 100 mg Documented By: YAYO Enoxaparin Sodium (Enoxaparin Sodium 40 Mg/0.4 Ml Syringe) 40 mg SUBCUT Q24H [facility] Last Admin: 12/17/23 14:38 Dose: 40 mg Documented By: YAYO Folic Acid (Folic Acid 1 Mg Tablet) 1 mg PO DAILY [facility] Last Admin: 12/18/23 08:39 Dose: 1 mg Documented By: ANDRE Vancomycin HCl 1,500 mg/ (Sodium Chloride) 500 mls @ 333.333 mls/hr IV Q24H [facility] Levothyroxine Sodium (Levothyroxine Sodium 112 Mcg Tablet) 112 mcg PO DAILY@0600 [facility] Last Admin: 12/18/23 05:08 Dose: 112 mcg Documented By: YNES Melatonin (Melatonin 3 Mg Tablet) 6 mg PO BEDTIME PRN PRN Reason: Insomnia Methotrexate (Methotrexate Sodium 2.5 Mg Tablet) 22.5 mg PO Sa@0900 [facility] Multivitamins/Vitamin C (Multivitamin Tablet) 1 tab PO DAILY [facility] Last Admin: 12/18/23 08:39 Dose: 1 tab Documented By: ANDRE Naproxen (Naproxen 250 Mg Tablet) 250 mg PO TID [facility] Last Admin: 12/18/23 08:39 Dose: 250 mg Documented By: ANDRE Ondansetron HCl (Ondansetron Hcl 4 Mg/2 Ml Vial) 4 mg IVPUSH Q8H PRN PRN Reason: Nausea and Vomiting Oxycodone HCl (Oxycodone Hcl Immed Release 5 Mg Tablet) 5 mg PO Q6H PRN PRN Reason: Pain, Moderate(Pain Scale 4-6) Last Admin: 12/17/23 14:39 Dose: 5 mg Documented By: YAYO Pharmacy Consult (Consult Rx Vancomycin Dosing) 1 each MISCELLANE DAILY PRN PRN Reason: Consult order Sodium Chloride (0.9 % Sodium Chloride Flush 3 Ml Syringe) 3 ml IVFLUSH QSHIFT [facility] Last Admin: 12/18/23 08:39 Dose: 3 ml Documented By: ANDRE Labs 12/18/23 05:02 12/18/23 05:02 Labs: Laboratory Results - last 24 hr 12/18/23 12/18/23 12/18/23 05:02 05:02 05:02 MCV 88.4 MCH 29.2 MCHC 33.1 RDW 20.0 H Plt Count 259 MPV 8.7 L Absolute Nucleated RBC 0.000 Nucleated RBC % (auto) 0.0 Anion Gap 10 L Estim Creat Clear Calc 73.4 Cancelled Estimated GFR > 60 Cancelled Random Glucose 91 Calcium 9.0 Microbiology Microbiology Results: Microbiology 12/17/23 09:10 Blood Culture - Preliminary Blood - Venous No growth after 24 hours. Assessment and Plan (1) Cellulitis: Status: Acute Plan Pt is a 58-year-old male with a PMH significant for rheumatoid arthritis and hypothyroidism who presents to the ED with?worsening left finger infection. Pt will be admitted to the hospital for treatment and further evaluation of index finger on left hand infection that failed outpatient therapy. Left hand index cellulitis with question of osteomyelitis X-ray of left hand showing cortical destruction at base of distal phalanx suggestive of osteomyelitis, could also be related to RA ESR and CRP WNL Pending cultures Continue vanco Analgesics for pain management ID consult Follow Vanco trough Third digit of left foot ulceration Wound care consult Pt not diabetic Being covered with antibiotics as above Rheumatoid arthritis Continue methotrexate, Humira, folic acid Hypothyroidism Continue levothyroxine Full Code Attending:?Dr. Palacios DVT Prophylaxis: Lovenox Pt will require a hospitalization of overnight for treatment of?worsening left index finger cellulitis for the administration of IV antibiotics and specialist consultation with Infectious Disease for possible osteomyelitis. Quality Stroke Does the patient have a stroke diagnosis?: No VTE Prior VTE?: No VTE Risk Level:: Medical - moderate - high VTE Device Contraindication: Treatment Not Indicated VTE Drug Contraindication: N/A - Med Ordered
[2023-12-18] MEDS: vancomycin HCL 1,500 MG in 0.9 % Sodium Chloride 500 ML 333.33 MG IV (11:24)
[2023-12-18] MEDS: Enoxaparin Sodium 40 MG/0.4 ML SYRINGE SUBCUT (11:24)
--- NOTE | 2023-12-18 11:25 | MHC.CM.PN ---
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
--- NOTE | 2023-12-18 11:43 | HO.WOUND ---
Wound Consult: Initial 58yr old Male? admitted to [facility] on 12/17/23 - See progress notes and H&P for detailed history.? Wound consult placed for Left 3rd toe and right index finger.? Patient agreeable to assessment and photo documentation.? Left 4th Toe Etiology: ??Neuropathic Wound Present on Admission Measurements: See charting for detailed measurements Wound Bed: full thickness tissue loss central adherent yellow slough Drainage / Odor: none noted Edges: ? well defined Ольга wound: ? Intact mild erythema noted - No Induration, Fluctuance or Warmth noted Pain: mild pain reported at times - reports neuropathy that comes and goes at times. Goals of Treatment: ? Moist wound healing with Durafiber and hydrocolloid. Right 5th Toe Right Fifth toe Etiology: ??Neuropathic Wound Present on Admission Measurements: See charting for detailed measurements Wound Bed: full thickness tissue loss central adherent yellow slough Drainage / Odor: none noted Edges: ? well defined Ольга wound: ? Intact mild erythema noted - No Induration, Fluctuance or Warmth noted Pain: mild pain reported at times - reports neuropathy that comes and goes at times. Goals of Treatment: ? Moist wound healing with Durafiber and hydrocolloid. Left Thumb Abrasion Left 4th finger Left Index Finger Left Index Finger Etiology: ??Infected wound Present on Admission Wound Bed: various stages of wound presence - concern for pocket of fluid - very tender to touch not able to palpate for fluctuance Drainage / Odor: None noted however dried wound beds likely reason Edges: ? irregular Ольга wound: Red erythema, + swelling Pain: painful to touch Goals of Treatment: ? xeroform to soften wound beds and allow for autolytic debridement Various fingers assessed with various wounds some with red pink moist woune beds some with adherent yellow slough - Hydorcolloid applied to all for treatment. Patient was educated to follow up with pt wound clinic and caustic operator given the joint deformity and thickened nails podiatry will help with overall foot health and wound clinic can help for wound healing. He demonstrates understanding. Recommendations: 1. Bilateral Toes - Cleanse with NS moist gauze or with routine showering (Soap and water). Pat dry. Apply cut to size and lightly pack wound bed with Durafiber AG, cover completely with hydrocolloid cut strip to secure in place. Change every 3 days and PRN for loose dressing. May consider off loading pressure from shoes with foam dressings due to toe deformity. 2. Thumb and 4th finger - Cleanse with NS moist gauze or with routine showering (Soap and water). Pat dry. Apply hydrocolloid cut strip. Change every 3 days and PRN for loose dressing. 3. Left Index Finger - Cleanse with NS moist gauze or with routine showering (Soap and water). Pat dry. Cover with xeroform and dry gauze and netting to hold in place. Change Daily. Recommend follow up out patient Wound Clinic at [address] [place] [id number] and to call for an appointment at time of discharge. [phone].? Re-consult wound care Nurse for wound deterioration or wound changes.
--- NOTE | 2023-12-18 12:40 | MHC.CLN ---
NUTRITION CONSULT FOR NUTRITION SCORE UPON ADM. REPORTS 30# WEIGHT LOSS IN THE PAST YEAR. REPORTS GOOD APPETITE AND NO SIGNIFICANT CHANGES IN INTAKE X ONE YEAR. REVIEW OF WEIGHT HX DOES NOT SUPPORT WEIGHT LOSS. ADDING ENSURE BID PER CONVERSATION WITH PATIENT. SUPPLEMENT PROVIDES 700 KCALS, [address] TO MONITOR WEEKLY.
[2023-12-18] MEDS: oxyCODONE HCl Immed Release 5 MG TABLET PO (13:47)
[2023-12-18 15:24] VITALS: BP 122/63; PULSE 73; RESP 17; TEMP 36.2; O2SAT 94
[2023-12-18 20:00] VITALS: BP 112/68; PULSE 68; RESP 18; TEMP 36.1; O2SAT 95
--- NOTE | 2023-12-18 23:58 | W.PM.IDCN ---
History of Present Illness Data of Consult Service Date: 12/18/23 Requesting physician: Danisha Palacios Primary Care Provider: Keaton Briones MD HPI Reason for consult: left second finger,left foot skin lesions He was working outside chopping wood and got sliver in finger. He went to abrasion and reported abrasion and purulence. He also reports chronic ulcer left foot,fourth toe. He has no fever or chills. He takes Humira and MTX. Review of Systems Review of Systems: Yes all other systems are reviewed and are negative Integumentary/Breasts: Skin/Breast: Reports bleeding [facility] Past Medical History Medical History (Updated 12/19/23 @ 00:06 by Zahraa Cloe MD) Hand lesion Hypothyroidism Rheumatoid arthritis Family History Family History Other No family history of coronary artery disease Surgical History Surgical History No pertinent past surgical history Social History Social History Household Members: Spouse and Children Housing: Other Housing Other:: Mobile home. Do you presently have visiting nurse or other home services: No Alcohol intake: never Patient Tobacco Use Status: Never used Tobacco Smoked in Last 30 Days: No Use of substances other than those prescribed or required for medical reasons: No Currently Displaying Signs/Symptoms of Drug Intoxication Withdrawal: No Have you been hit, kicked, punched, or otherwise hurt by someone within the past year? If so, by whom?: No Do you feel safe in your current relationship?: Yes Is there a partner from a previous relationship who is making you feel unsafe now?: No Are you made to feel afraid or neglected: No Yazidi Healthcare Practices: Cheondoism. Advance Directives: No Advance Directives Information Provided: No Do you have thoughts of harming others: None Do you have a plan to hurt others: No Plan Recently lost weight without trying: Yes How much weight loss: 34pounds or more Eating poorly because of decreased appetite: No Nutrition screen score: 6 Nutrition Risks: No Nutritional Risk Poor oral hygiene: No service: No Current occupational status: employed Meds Allergies Allergy/AdvReac Type Severity Reaction Status Date / Time No Known Allergies Allergy Verified 12/17/23 06:48 Active Medications: Current Medications Acetaminophen (Acetaminophen 325 Mg Tablet) 650 mg PO Q6H PRN PRN Reason: Pain, Mild (Pain Scale 1-3) Last Admin: 12/17/23 14:39 Dose: 650 mg Benzonatate (Benzonatate 100 Mg Capsule) 100 mg PO TID PRN PRN Reason: Cough Docusate Sodium (Docusate Sodium 100 Mg Capsule) 100 mg PO DAILY PRN PRN Reason: Constipation Last Admin: 12/17/23 14:39 Dose: 100 mg Enoxaparin Sodium (Enoxaparin Sodium 40 Mg/0.4 Ml Syringe) 40 mg SUBCUT Q24H [facility] Last Admin: 12/18/23 11:24 Dose: 40 mg Folic Acid (Folic Acid 1 Mg Tablet) 1 mg PO DAILY [facility] Last Admin: 12/18/23 08:39 Dose: 1 mg Vancomycin HCl 1,500 mg/ (Sodium Chloride) 500 mls @ 333.333 mls/hr IV Q24H [facility] Last Infusion: 12/18/23 13:34 Dose: Infused Levothyroxine Sodium (Levothyroxine Sodium 112 Mcg Tablet) 112 mcg PO DAILY@0600 [facility] Last Admin: 12/18/23 05:08 Dose: 112 mcg Melatonin (Melatonin 3 Mg Tablet) 6 mg PO BEDTIME PRN PRN Reason: Insomnia Methotrexate (Methotrexate Sodium 2.5 Mg Tablet) 22.5 mg PO Sa@0900 [facility] Multivitamins/Vitamin C (Multivitamin Tablet) 1 tab PO DAILY [facility] Last Admin: 12/18/23 08:39 Dose: 1 tab Naproxen (Naproxen 250 Mg Tablet) 250 mg PO TID [facility] Last Admin: 12/18/23 20:34 Dose: 250 mg Ondansetron HCl (Ondansetron Hcl 4 Mg/2 Ml Vial) 4 mg IVPUSH Q8H PRN PRN Reason: Nausea and Vomiting Oxycodone HCl (Oxycodone Hcl Immed Release 5 Mg Tablet) 5 mg PO Q6H PRN PRN Reason: Pain, Moderate(Pain Scale 4-6) Last Admin: 12/18/23 13:47 Dose: 5 mg Pharmacy Consult (Consult Rx Vancomycin Dosing) 1 each MISCELLANE DAILY PRN PRN Reason: Consult order Sodium Chloride (0.9 % Sodium Chloride Flush 3 Ml Syringe) 3 ml IVFLUSH QSHIFT [facility] Last Admin: 12/18/23 20:34 Dose: 3 ml Home Medications ?Medication ?Instructions ?Recorded ?Confirmed ?Last Taken ?Type adalimumab 40 mg/0.4 mL 40 mg subcut Q2W 04/24/22 12/17/23 12/12/23 History subcutaneous pen kit (Humira(CF) Pen) folic acid 1 mg tablet 1 tab PO DAILY 04/24/22 12/17/23 12/17/23 History levothyroxine 112 mcg tablet 1 tab PO DAILY@0600 04/24/22 12/17/23 12/17/23 History methotrexate sodium 2.5 mg tablet 9 tab PO SA 04/24/22 12/17/23 12/12/23 History multivitamin 1 tab PO DAILY 04/24/22 12/17/23 12/17/23 History naproxen 250 mg tablet 250 mg PO TID 12/17/23 12/17/23 12/17/23 History Physical Exam Vital Signs: Vital Signs: Last Vital Signs Temp 97 F 12/18/23 20:00 Pulse 68 12/18/23 20:00 Resp 18 12/18/23 20:00 BP 112/68 12/18/23 20:00 Pulse Ox 95 12/18/23 20:00 O2 Del Method Room Air 12/18/23 20:00 BMI result Body Mass Index 23.0 Skin: Other: abrasion on hand left second finger foot ulcer,no cellulitis left Results Labs 12/18/23 05:02 12/18/23 05:02 Labs: Short CBC 12/18/23 Range/Units 05:02 WBC 9.8 (4.8-10.8) X10*3/uL Hgb 12.8 L (14.0-18.0) g/dl Hct 38.7 L (42.0-52.0) % Plt Count 259 (160-400) X10*3/uL BMP 12/18/23 12/18/23 05:02 05:02 Sodium 138 Potassium 4.5 Chloride 108 Carbon Dioxide 25 BUN 27 H Creatinine 0.93 Cancelled Calcium 9.0 Microbiology Microbiology Results: Microbiology 12/17/23 10:03 Blood - Venous Blood Culture - Preliminary No growth after 24 hours. 12/17/23 09:10 Blood - Venous Blood Culture - Preliminary No growth after 24 hours. Assessment and Plan (1) Hand lesion: Status: Acute He has no elevated ESR(9) fever or clinical OM either hand or foot. Erosive changes likely due to RA. Stop Vancomycin and hold antibiotics at this time. May give po Doxycycline for a week on discharge. See Wound Clinic.
[2023-12-19 03:54] VITALS: BP 105/53; PULSE 73; RESP 16; TEMP 35.9; O2SAT 98
[2023-12-19] MEDS: Levothyroxine Sodium 112 MCG TABLET PO (05:32)
[2023-12-19 06:36] LABS: Anion Gap 9 (12-20); Blood Urea Nitrogen 27 mg/dL (9-16); Calcium 8.9 mg/dL (8.4-10.2); Carbon Dioxide 23 mmol/L (22-29); Chloride 108 mmol/L (96-108); Creatinine Clr Calc Pharmacy 79.4; Estimated Glomerular Filt Rate > 60; Glucose Random 136 mg/dL (60-115); Sodium 136 mmol/L (135-145)
[2023-12-19 07:21] VITALS: BP 131/70; PULSE 71; RESP 16; TEMP 36.1; O2SAT 99
[2023-12-19] MEDS: 0.9 % Sodium Chloride Flush 3 ML SYRINGE IVFLUSH (09:05)
[2023-12-19] MEDS: NaPROXEN 250 MG TABLET PO (09:06)
[2023-12-19] MEDS: Folic Acid 1 MG TABLET PO (09:09)
[2023-12-19] MEDS: Multivitamin TABLET 1 TAB PO (09:09)
[2023-12-19] MEDS: metHOTREXate sodium 2.5 MG TABLET 22.5 MG PO (10:33)
--- NOTE | 2023-12-19 11:01 | P.DS_ITS ---
DS: Providers Provider Date of Service: 12/19/23 Date of admission: 12/17/23 11:58 Primary care physician: Keaton Briones MD Consults: 12/17/23 11:40 Consult to Wound Care Routine Reason for consultation: left 4th toe ulceration 12/17/23 12:09 Consult to Wound Care Routine Reason for consultation: Third digit on left foot ulceration; first digit left hand infection 12/17/23 12:14 Consult to Infectious Diseases [place]ine [place] [facility] [place] Reason for consultation: Left hand first digit infection, ?osteo on x-ray DS: Diagnosis Discharge Diagnosis (1) Hand lesion: Status: Acute (2) Cellulitis: Status: Acute (3) Rheumatoid arthritis: Status: Acute DS: Summary Hospital Course Hospital Course: Admission note Pt is a 58-year-old male with a PMH significant for rheumatoid arthritis and hypothyroidism who presents to the ED with?worsening left finger infection. Patient states symptoms began approximately 2 weeks ago when he noticed redness, swelling, pain, and blisters on the end of his index finger on left hand. Called PCP prescribed Augmentin x7 days. Patient reports completing course of antibiotics 12/12/2023 though symptoms persisted, including an increase in pain. Patient had kept finger bandaged during this time. Last night patient reports soaking finger in hydrogen peroxide for 20-30 minutes. This morning patient noticed purulent, odorless drainage from open wound on his finger and decided to come in to the ED for further evaluation. Denies fever, chills, nausea, vomiting. Patient also complains of open sore and redness 3rd digit left foot that began a few weeks ago, around the same time as his finger. He has not noticed any drainage or significant pain from this area. Of note, patient has history of rheumatoid arthritis and notes tips of his fingers become discolored during the winter months. No chest pain/pressure, palpitations. Denies shortness of breath. In the ED pt was mildly hypertensive up to 141/81, vitals otherwise WNL. Labs were significant for mild leukocytosis of 11.1, and BUN 36, otherwise grossly unremarkable and baseline for patient. ESR 9, CRP 0.60. Stable H&H of 12.9/38.9. No significant electrolyte abnormalities. A1c 5.4. Hepatic function baseline. X-ray of left hand found soft tissue swelling of index finger with cortical destruction at base of distal phalanx suggestive of osteomyelitis and large erosion at the base of the distal phalanx of the 3rd digit. X-ray of left foot found severe degenerative changes at TMT joints, but no definitive bony destruction to raise suspicion of osteomyelitis. Duplex scan of upper extremity found no evidence of significant arterial occlusive disease. Pt was treated with oxycodone, ceftriaxone, and vancomycin. Pt will be admitted to the hospital for treatment and further evaluation of index finger on left hand infection that failed outpatient therapy. Hospital course The patient wa admitted to the hospital for a concern of osteomyelitis in the left hand and started on broad spectrum antibiotics as XR of the hand showed concerns over the base of left index finger with accompanying swelling and open wound. The swelling, pain and drainage improved during the hospital stay. CRP and ESR were both low suggesting against Osteomyelitis as well as the fact that he has rheumatoid arthritis with deformaties in his left hand. Seen by ID who suggested 1 week of PO Doxycycline. Seen by wound care nurse and will be followed at wound care center. Discharge Plan Continue Doxycycline for 1 more week follow with wound clinic as outpatient Time Attestation Discharge Coordination Time (in mins): 37 Quality: Safe Use of Opioids Does Pt have an Active Cancer Diagnosis on the Problem List?: No Quality: Stroke Does the patient have a stroke diagnosis?: No Physical Exam Vital Signs: Vital Signs: Last Vital Signs Temp 97.0 F 12/19/23 07:21 Pulse 71 12/19/23 07:21 Resp 16 12/19/23 07:21 BP 131/70 12/19/23 07:21 Pulse Ox 99 12/19/23 07:21 O2 Del Method Room Air 12/19/23 07:21 BMI result Body Mass Index 23.0 Const: Other: Constitutional : Awake, interactive, not in distress Neck : Normal inspection, Supple Cardiovascular : RRR, no JVP, no lower extremity edema Respiratory : good bilateral air entry, no crackles, wheezes or rhonchi Gastrointestinal: soft, lax, Normal bowel sounds, Non tender Skin : Warm, Dry, Lt foot toe ulcer clean, no drianage. LEft hand index wound improving, less erythema and swelling, no drainage. Neurological : Alert & oriented x3, No focal deficit DS: Data Data Completed and Pending Labs on day of discharge: Laboratory Results - last 24 hr 12/19/23 05:39 Hold Purple Top SEE NOTE Sodium 136 Potassium 4.0 Chloride 108 Carbon Dioxide 23 Anion Gap 9 L BUN 27 H Creatinine 0.86 Estim Creat Clear Calc 79.4 Estimated GFR > 60 Random Glucose 136 H Calcium 8.9 Preliminary micro results at discharge 12/17/23 10:03 Blood Culture - Preliminary Blood - Venous No growth after 24 hours. 12/17/23 09:10 Blood Culture - Preliminary Blood - Venous No growth after 24 hours. Imaging Chest x-ray: Radiologist's impression: ITS Impressions Duplex Scan Upper Extremity Artery 12/17/23 09:00 IMPRESSION: No evidence of significant arterial occlusive disease in the left upper extremity. Foot X-Ray 12/17/23 09:43 IMPRESSION: 1. Degenerative changes in the hand and wrist as described above. 2. Soft tissue swelling index finger with cortical destruction at the base of the distal phalanx suggestive of osteomyelitis. 3. Large erosion at the base of the distal phalanx of the third digit. 4. Severe degenerative changes in the TMT joints. Hand X-Ray 12/17/23 09:43 IMPRESSION: 1. Degenerative changes in the hand and wrist as described above. 2. Soft tissue swelling index finger with cortical destruction at the base of the distal phalanx suggestive of osteomyelitis. 3. Large erosion at the base of the distal phalanx of the third digit. 4. Severe degenerative changes in the TMT joints. Discharge Plan Discharge Anticipated Discharge Date/Time: 12/19/23 10:49 Patient Disposition: Home, Self-Care Discharge Diagnosis: Hand ulcer with infection Referrals: Keaton Briones MD [Primary Care Provider] - 1 Week Discharge Medications: New silver-calcium alginate 2 X 2 bandage 1 ea topical DAILY Qty: 100 0RF doxycycline monohydrate 100 mg capsule 100 mg PO BID Qty: 14 0RF Continued multivitamin Tablet 1 tab PO DAILY methotrexate sodium 2.5 mg tablet 9 tab PO SA folic acid 1 mg tablet 1 tab PO DAILY levothyroxine 112 mcg tablet 1 tab PO DAILY@0600 Humira(CF) Pen 40 mg/0.4 mL pen injector kit 40 mg subcut Q2W naproxen 250 mg tablet 250 mg PO TID Discharge Orders: Discharge Order (Routine); Ordered 12/19/23 Ordered By: Danisha Palacios Diet: Advance to usual diet Activity on Discharge: As tolerated Stand Alone Forms: Patient Portal Discharge page Print Language: Indonesian Activity Restrictions/Additional Instructions: Topical Wound Care Recommendations: 1. Bilateral Toes - Cleanse with NS moist gauze or with routine showering (Soap and water). Pat dry. Apply cut to size and lightly pack wound bed with Durafiber AG, cover completely with hydrocolloid cut strip to secure in place. Change every 3 days and PRN for loose dressing. May consider off loading pressure from shoes with foam dressings due to toe deformity. 2. Thumb and 4th finger - Cleanse with NS moist gauze or with routine showering (Soap and water). Pat dry. Apply hydrocolloid cut strip. Change every 3 days and PRN for loose dressing. 3. Left Index Finger - Cleanse with NS moist gauze or with routine showering (Soap and water). Pat dry. Cover with xeroform and dry gauze and netting to hold in place. Change Daily. Recommend follow up out patient Wound Clinic at [address] [place] [id number] and to call for an appointment at time of discharge. [phone].? Care Plan Goals: Read below Health Concerns: Read below Plan of Treatment: Read below Assessment: Continue Doxycycline for 1 more week follow with wound clinic as outpatient
--- NOTE | 2023-12-19 11:58 | MHC.CM.PN ---
PATIENT IS DC HOME - SELF CARE. DISCHARGE INSTRUCTIONS OUTLINE THE PLAN OF CARE FOR WOUND CARE CLINIC FOLLOW UP. RN AWARE OF PLAN.
--- NOTE | 2023-12-19 14:16 | PC.NURSE ---
Left index finger dsg changed today, some suplies given. All wound care instructions reviewed with pt. F/U outpatient for wound care.
== END 2023-12-19 14:15 | disposition home or self-care (01) | DRG 603 ==
LOC: HO.ED 10:45 → HO.EDOVER 12:47 → HO.S3 16:02
PROVIDERS: Physician Assistant Medical; Admitting Provider Student in an Organized Health Care Education/Training Program; Emergency Provider Emergency Medicine; PCP Hospitalist; Visit Provider Student in an Organized Health Care Education/Training Program
DX: L03.012 Cellulitis of left finger (principal); E03.9 Hypothyroidism, unspecified; M06.9 Rheumatoid arthritis, unspecified; L97.529 Non-pressure chronic ulcer of other part of left foot with unspecified severity; Z79.620 Long term (current) use of immunosuppressive biologic; Z79.631 Long term (current) use of antimetabolite agent; Z79.890 Hormone replacement therapy; Z79.899 Other long term (current) drug therapy
CPT/HCPCS: 36415; 73130; 73630; 80048; 80053; 83036; 83605; 85025; 85027; 85652; 86140; 87040; 93931; 99285; J0696; J1650; J3371

== ENCOUNTER → 2023-12-17 11:58 | Outpatient (BNV) | payer OTHER, SELFPAY | PROVIDERS: Admitting Provider Student in an Organized Health Care Education/Training Program; Emergency Provider Emergency Medicine; PCP Hospitalist; Visit Provider Student in an Organized Health Care Education/Training Program | DX: L03.90 Cellulitis, unspecified (principal); M06.9 Rheumatoid arthritis, unspecified | CPT/HCPCS: 99223; 99232; 99239 ==

== ENCOUNTER → 2023-12-17 11:58 | Outpatient (BNV) | payer OTHER, SELFPAY | PROVIDERS: Admitting Provider Student in an Organized Health Care Education/Training Program; Emergency Provider Emergency Medicine; PCP Hospitalist; Visit Provider Internal Medicine | DX: L98.9 Disorder of the skin and subcutaneous tissue, unspecified (principal) | CPT/HCPCS: 99222 ==

== ENCOUNTER 2023-12-27 01:40 | Emergency (ER) | payer OTHER, SELFPAY ==
--- NOTE | ~2023-12-27 | XR_ITS ---
EXAMINATION: XR HAND, LEFT CLINICAL INFORMATION: Finger infection. COMPARISON: None available. TECHNIQUE: PA, lateral, and oblique views of the left hand. FINDINGS: The bone mineralization is normal. There is mild degenerative change of the wrist most prominent at the lateral mid carpal row and first carpometacarpal joint with subchondral sclerosis and mild loss of joint space. No fracture is seen. There is soft tissue swelling about the third digit. There is no bony erosive change to suggest osteomyelitis. XR/XR hand LT 2V IMPRESSION: 1. Soft tissue swelling about the third digit. No fracture or dislocation is seen. There is no bony erosive change to suggest osteomyelitis. 2. Degenerative changes of the wrist.
[2023-12-27 01:52] VITALS: BP 132/76; PULSE 72; RESP 18; TEMP 36.4; O2SAT 95; BMI 23.3
[2023-12-27 02:35] LABS: MANUAL DIFF FLAG NO
[2023-12-27 02:36] LABS: Basophils Absolute Auto 0.1 X10*3/uL (0.0-0.2); Basophils Percent Auto 0.6 % (0-2); Eosinophils Absolute Auto 0.7 X10*3/uL (0.0-0.4); Eosinophils Percent Auto 7.4 % (0-4); Hematocrit 37.5 % (42.0-52.0); Hemoglobin 12.8 g/dl (14.0-18.0); Imm Gran Abs Auto 0.04 X10*3/uL (0.00-0.03); Imm Gran Pct Auto 0.4 % (0.0-0.4); Lymphocytes Absolute Auto 2.4 X10*3/uL (1.2-4.9); Lymphocytes Percent Auto 23.9 % (20-40); Mean Corpuscular HGB Conc 34.1 g/dl (31.0-36.0); Mean Corpuscular Hemoglobin 29.5 pg (27.0-33.0); Mean Corpuscular Volume 86.4 fL (80.0-98.0); Mean Platelet Volume 8.8 fL (9.4-12.4); Monocytes Absolute Auto 1.2 X10*3/uL (0.1-1.2); Monocytes Percent Auto 12.5 % (2-11); Neutrophils Absolute Auto 5.4 x10*3/uL (2.0-8.3); Neutrophils Percent Auto 55.2 % (45-73); Platelet Count 241 X10*3/uL (160-400); Red Blood Count 4.34 X10*6/uL (4.60-5.80); Red Cell Distribution Width 19.6 % (11.0-16.0); White Blood Count 9.9 X10*3/uL (4.8-10.8)
[2023-12-27 02:50] LABS: Alanine Aminotransferase 31 U/L (0-40); Albumin Level 3.6 g/dL (3.5-5.0); Alkaline Phosphatase 80 U/L (39-117); Anion Gap 11 (12-20); Aspartate Amino Transferase 21 U/L (5-37); Bilirubin Total 0.7 mg/dL (0.0-1.0); Blood Urea Nitrogen 29 mg/dL (9-16); Calcium 9.4 mg/dL (8.4-10.2); Carbon Dioxide 25 mmol/L (22-29); Chloride 106 mmol/L (96-108); Creatinine Clr Calc Pharmacy 52.1; Estimated Glomerular Filt Rate 56; Glucose Random 110 mg/dL (60-115); Potassium 4.2 mmol/L (3.3-5.1); Sodium 138 mmol/L (135-145); Total Protein 6.5 g/dL (6.5-8.0)
[2023-12-27 04:49] LABS: C Reactive Protein 0.45 mg/dL (< or = 0.50)
--- NOTE | 2023-12-27 04:49 | ED_ITS ---
HPI - Extremity Problem General Chief complaint: Wound/Laceration Stated complaint: infected finger Time Seen by Provider: 12/27/23 04:35 Source: patient Mode of arrival: ambulatory Limitations: no limitations History of Present Illness HPI Narrative: Patient's history of rheumatoid arthritis on Humira and methotrexate also has Raynaud's phenomena not taking any medications does get bluish discoloration of the fingers when in cold complaining of increased pain left 3rd digit for last 2 days patient just finished antibiotics treatment for left index finger infection patient also had arterial Doppler done which was negative for any significant arterial occlusion patient does have superficial ulceration on the medial aspect of the left 3rd digit no fever no chills Related Data Home Medications ?Medication ?Instructions ?Recorded ?Confirmed adalimumab 40 mg/0.4 mL 40 mg subcut Q2W 04/24/22 12/17/23 subcutaneous pen kit (Humira(CF) Pen) folic acid 1 mg tablet 1 tab PO DAILY 04/24/22 12/17/23 levothyroxine 112 mcg tablet 1 tab PO DAILY@0600 04/24/22 12/17/23 methotrexate sodium 2.5 mg tablet 9 tab PO SA 04/24/22 12/17/23 multivitamin 1 tab PO DAILY 04/24/22 12/17/23 naproxen 250 mg tablet 250 mg PO TID 12/17/23 12/17/23 Previous Rx's ?Medication ?Instructions ?Recorded silver-calcium alginate 2 X 2 1 ea topical DAILY #100 ea 12/18/23 bandage doxycycline monohydrate 100 mg 100 mg PO BID #14 caps 12/19/23 capsule amlodipine 2.5 mg tablet 2.5 mg PO DAILY #30 tabs 12/27/23 aspirin 81 mg tablet,delayed 81 mg PO DAILY #30 tabs 12/27/23 release (Adult Low Dose Aspirin) mupirocin 2 % topical ointment 1 appl topical BID #15 grams 12/27/23 Allergies Allergy/AdvReac Type Severity Reaction Status Date / Time No Known Allergies Allergy Verified 12/27/23 01:52 Review of Systems 2 Review of Systems: Yes all other systems are reviewed and are negative FOR[facility]LY [facility] Past Medical History Medical History Hand lesion Hypothyroidism Rheumatoid arthritis Surgical History No pertinent past surgical history Family History Family History Other No family history of coronary artery disease Social History Social History Household Members: Spouse and Children Housing: Other Housing Other:: Mobile home. Do you presently have visiting nurse or other home services: No Alcohol intake: current Alcohol intake frequency: holidays/special occasions only Patient Tobacco Use Status: Never used Tobacco Smoked in Last 30 Days: No Use of substances other than those prescribed or required for medical reasons: No Advance Directives: No Advance Directives Information Provided: Yes service: No Current occupational status: employed Physical Exam 2 Vital Signs: Vital Signs: Last Vital Signs Temp 98.6 F 12/27/23 05:21 Pulse 71 12/27/23 05:21 Resp 15 12/27/23 05:21 BP 153/79 H 12/27/23 05:21 Pulse Ox 96 12/27/23 05:21 O2 Del Method Room Air 12/27/23 05:21 BMI result Body Mass Index 23.3 Appearance: Alert. Oriented X3. No acute distress. Neck: Normal inspection. Neck supple. CVS: Normal heart rate and rhythm. Pulses normal. Respiratory: No respiratory distress. Equal air entry bilateral, no wheezing/rales/rhonchi Abdomen: Soft and nontender. Bowel sounds are present, no mass palpable, no CVA tenderness Skin: Skin warm and dry. Normal skin color. Normal skin turgor. Extremities: No lower extremity edema. No calf tenderness left hand slight redness bluish discoloration of the all the fingers and slightly colder radial pulse palpable slight redness and the superficial ulceration of the left 3rd digit rheumatoid arthritic changes Neuro: Oriented X 3. No motor deficit. No sensory deficit.No cerebellar signs , cranial nerves II-XII intact Medications Administered Discontinued Medications Generic Name Dose Route Start Last Admin Trade Name Freq PRN Reason Stop Dose Admin Amlodipine Besylate 2.5 mg 12/27/23 04:46 12/27/23 05:19 Amlodipine Besylate 2.5 Mg Tablet PO 12/27/23 04:47 2.5 mg ONCE ONE Administration Protocol Aspirin 81 mg 12/27/23 04:46 12/27/23 05:19 Aspirin 81 Mg Tab.Chew PO 12/27/23 04:47 81 mg ONCE ONE Administration Medical Decision Making Medical Decision Making [facility] [place] Narrative: Patient clinically has Raynaud's phenomena with longstanding history of bluish discoloration of the toe fingers especially when it is cold already had arterial Doppler done on 12/17/2023 which was negative for arterial occlusion patient does have a vasospastic condition/Raynaud's phenomena will start patient on aspirin and amlodipine a superficial ulceration will check for CRP and sed rate and get the x-ray done Differential Diagnosis Differential Diagnoses: The differential diagnosis associated with the presentation includes Raynaud's phenomena/cellulitis/ulceration of the skin/osteomyelitis Lab Data [facility] [place] Lab Attestation statement: I reviewed the patient's lab results. 12/27/23 02:28 12/27/23 02:28 Labs: Lab Results 12/27/23 Range/Units 02:28 WBC 9.9 (4.8-10.8) X10*3/uL RBC 4.34 L (4.60-5.80) X10*6/uL Hgb 12.8 L (14.0-18.0) g/dl Hct 37.5 L (42.0-52.0) % MCV 86.4 (80.0-98.0) fL MCH 29.5 (27.0-33.0) pg MCHC 34.1 (31.0-36.0) g/dl RDW 19.6 H (11.0-16.0) % Plt Count 241 (160-400) X10*3/uL MPV 8.8 L (9.4-12.4) fL Immature Gran % (Auto) 0.4 (0.0-0.4) % Neut % (Auto) 55.2 (45-73) % Lymph % (Auto) 23.9 (20-40) % Faulkner % (Auto) 12.5 H (2-11) % Eos % (Auto) 7.4 H (0-4) % Baso % (Auto) 0.6 (0-2) % Lymph # (Auto) 2.4 (1.2-4.9) X10*3/uL Faulkner # (Auto) 1.2 (0.1-1.2) X10*3/uL Eos # (Auto) 0.7 H (0.0-0.4) X10*3/uL Baso # (Auto) 0.1 (0.0-0.2) X10*3/uL Abs Immat Gran (auto) 0.04 H (0.00-0.03) X10*3/uL Absolute Neuts (auto) 5.4 (2.0-8.3) x10*3/uL Absolute Nucleated RBC 0.000 (0.0-0.012) X10*3/uL Nucleated RBC % (auto) 0.0 (0.0-0.2) /100WBC ESR 7 (0-15) MM/HR Sodium 138 (135-145) mmol/L Potassium 4.2 (3.3-5.1) mmol/L Chloride 106 (96-108) mmol/L Carbon Dioxide 25 (22-29) mmol/L Anion Gap 11 L (12-20) BUN 29 H (9-16) mg/dL Creatinine 1.31 (0.5-1.4) mg/dL Estim Creat Clear Calc 52.1 Estimated GFR 56 Random Glucose 110 (60-115) mg/dL Calcium 9.4 (8.4-10.2) mg/dL Total Bilirubin 0.7 (0.0-1.0) mg/dL AST 21 (5-37) U/L ALT 31 (0-40) U/L Alkaline Phosphatase 80 (39-117) U/L C-Reactive Protein 0.45 (< or = 0.50) mg/dL Total Protein 6.5 (6.5-8.0) g/dL Albumin 3.6 (3.5-5.0) g/dL Independent Interpretation I performed an independent interpretation of an: Plain X-Ray Radiology Impression Discussion of test interpretation with radiology: I have reviewed the radiologist's reading. Discharge Plan Discharge Clinical Impression: Raynaud phenomenon Patient Disposition: Home, Self-Care Instructions: Raynaud Disease (ED) Additional Instructions: Keep your hands warm Apply ointment twice daily at the open area as prescribed Take baby aspirin and Amlodipine 2.5 mg daily Follow with your wheelman Prescriptions: New amlodipine 2.5 mg tablet 2.5 mg PO DAILY Qty: 30 0RF aspirin [Adult Low Dose Aspirin] 81 mg tablet,delayed release (DR/EC) 81 mg PO DAILY Qty: 30 0RF mupirocin 2 % ointment 1 appl topical BID Qty: 15 0RF No Action multivitamin Tablet 1 tab PO DAILY methotrexate sodium 2.5 mg tablet 9 tab PO SA folic acid 1 mg tablet 1 tab PO DAILY levothyroxine 112 mcg tablet 1 tab PO DAILY@0600 Humira(CF) Pen 40 mg/0.4 mL pen injector kit 40 mg subcut Q2W naproxen 250 mg tablet 250 mg PO TID silver-calcium alginate 2 X 2 bandage 1 ea topical DAILY Qty: 100 0RF doxycycline monohydrate 100 mg capsule 100 mg PO BID Qty: 14 0RF Print Language: Thai
[2023-12-27 05:16] LABS: Erythrocyte Sedimentation Rate 7 MM/HR (0-15)
[2023-12-27] MEDS: Aspirin 81 MG TAB.CHEW PO (05:19)
[2023-12-27] MEDS: amLODIPine Besylate 2.5 MG TABLET PO (05:19)
[2023-12-27 05:21] VITALS: BP 153/79; PULSE 71; RESP 15; TEMP 37; O2SAT 96
--- NOTE | 2023-12-27 05:38 | PC.NURSE ---
pt from home, a&ox4, respirations even and unlabored, reporting onset of left ring finger pain, reports being seen and admitted at [facility] [place] this past week for infection of other fingers, and reports being sent home on antibiotics. pt fingers noted to have discoloration, cms in tact. vss. pt medicated per nov.
[2023-12-27 06:53] VITALS: BP 153/79; PULSE 71; RESP 15; TEMP 37; O2SAT 96
== END 2023-12-27 06:53 | disposition home or self-care (01) ==
PROVIDERS: Emergency Provider Internal Medicine; PCP Hospitalist
DX: I73.00 Raynaud's syndrome without gangrene (principal); M06.9 Rheumatoid arthritis, unspecified; Z79.620 Long term (current) use of immunosuppressive biologic; Z79.631 Long term (current) use of antimetabolite agent
CPT/HCPCS: 36415; 73120; 80053; 85025; 85652; 86140; 99283; 99284

== ENCOUNTER 2024-07-10 16:55 | Inpatient (IN) | payer OTHER, SELFPAY ==
--- NOTE | ~2024-07-10 | CT_ITS ---
EXAMINATION: CT FOOT WITH IV CONTRAST LEFT CLINICAL INFORMATION: pain, infection, patholgic fracture on xray COMPARISON: None. TECHNIQUE: Left foot radiograph 07/10/2024. Intravenous Contrast: Omnipaque [address] examination was performed using dose optimization techniques as appropriate, variously including the following: *Automated exposure control *Adjustment of mA and/or kV according to patient size (this includes techniques or standardized protocols for targeted exams where dose is matched to indication/reason for exam; i.e. extremities or head) *Use of iterative reconstruction technique DLP: 126 mGy-cm FINDINGS: Fragmentation and erosion of the second distal phalanx is present and is associated with prominent adjacent subcutaneous reticulation. No adjacent soft tissue emphysematous changes. Extensive, diffuse midfoot joint space narrowing, osteophytosis, subchondral sclerosis and subchondral cyst formation is present. No adjacent soft tissue inflammatory changes noted. Prominent subcutaneous reticulation is present along the dorsum of the midfoot, lateral aspect of the ankle, and medial aspect of the ankle without associated soft tissue emphysematous changes. Findings are suspicious for cellulitis. No Lisfranc malalignment identified. No ankle joint effusion noted. The talar dome appears intact. CT/CT foot LT w IV con IMPRESSION: *Findings suspicious for osteomyelitis of the second distal phalanx of the left foot. Findings are characterized by fragmentation and erosion of the distal phalanx with adjacent soft tissue inflammatory changes. No adjacent soft tissue emphysematous changes. *Extensive subcutaneous edematous and inflammatory changes of the foot and ankle suspicious for cellulitis. *Chronic appearing extensive midfoot arthropathic changes which may represent Charcot arthropathy. Electronically signed by: Jaylan Murcia MD 07/11/2024 12:37 AM EDT
--- NOTE | ~2024-07-10 | US_ITS ---
EXAMINATION: US TRIPLEX LOWER EXTREMITY, LEFT CLINICAL INFORMATION: Left lower extremity pain, swelling rule out DVT COMPARISON: None available. TECHNIQUE: Color-flow triplex imaging with spectral analysis and compression Doppler were performed on the left lower extremity. FINDINGS: Duplicated venous system. Respiratory variation, normal compression and augmented flow are noted throughout the left lower extremity. The visualized common femoral vein, superficial femoral vein, profunda femoral vein, popliteal vein and midcalf peroneal and posterior tibial venous segments show no evidence of deep venous thrombosis. Soft tissue edema of the left leg. There is a prominent groin lymph nodes with echogenic fatty hilum measuring 2.6 x 0.9 x 1.8 cm, which is likely reactive. US/US venous duplex LE IMPRESSION: No evidence of deep venous thrombosis involving the left lower extremity. Electronically signed by: Joe Whitten MD 07/10/2024 08:05 PM EDT
--- NOTE | ~2024-07-10 | XR_ITS ---
EXAMINATION: XR FOOT, LEFT CLINICAL INFORMATION: Hyperemia of second toe, swelling, rule out osteomyelitis COMPARISON: December 17, 2023 TECHNIQUE: AP, lateral, and oblique views of the left foot. FINDINGS: There is marked swelling of the second toe on the left not associated with erosions but most likely fracture through the tuft of the second toe There is periarticular osteopenia and stable severe deformities with erosions of all tarsometatarsal joints and tarsal joints there is significant soft tissue swelling seen dorsally. XR/XR foot LT min 3V IMPRESSION: No evidence of osteomyelitis but fracture through the distal phalanx of second toe, possibly pathological fracture. Periarticular osteopenia and erosive changes in tarsometatarsal and tarsal joints Electronically signed by: Edith Chua MD 07/10/2024 05:49 PM EDT
[2024-07-10 17:04] VITALS: BP 140/65; PULSE 75; RESP 18; TEMP 36.5; O2SAT 100; BMI 23.5
--- NOTE | 2024-07-10 17:07 | ED.SKABFB ---
HPI - Skin/Abscess/Foreign Bdy General Chief complaint: General Medical Stated complaint: l foot infection Time Seen by Provider: 07/10/24 17:33 Source: patient Limitations: no limitations History of Present Illness ED Provider: Jazlyn Ventura PA-C HPI narrative: Patient is a 58 year old male with a history of RA who presents with an infection of his left 2nd metatarsal after losing his toenail 3 weeks ago. He states the toe is swollen, red, and occasionally causes pain when he walks. The infection has been worsening over this time. He mentions that the left foot is now more swollen than the right. He has tried hydrogen peroxide for the infection. He denies drainage from the site, fevers, skin rashes/ulcers, and other systemic symptoms. Related Data Home Medications ?Medication ?Instructions ?Recorded ?Confirmed adalimumab 40 mg/0.4 mL 40 mg subcut Q2W 04/24/22 12/17/23 subcutaneous pen kit (Humira(CF) Pen) folic acid 1 mg tablet 1 tab PO DAILY 04/24/22 12/17/23 levothyroxine 112 mcg tablet 1 tab PO DAILY@0600 04/24/22 12/17/23 methotrexate sodium 2.5 mg tablet 9 tab PO SA 04/24/22 12/17/23 multivitamin 1 tab PO DAILY 04/24/22 12/17/23 naproxen 250 mg tablet 250 mg PO TID 12/17/23 12/17/23 Previous Rx's ?Medication ?Instructions ?Recorded silver-calcium alginate 2 X 2 1 ea topical DAILY #100 ea 12/18/23 bandage doxycycline monohydrate 100 mg 100 mg PO BID #14 caps 12/19/23 capsule amlodipine 2.5 mg tablet 2.5 mg PO DAILY #30 tabs 12/27/23 aspirin 81 mg tablet,delayed 81 mg PO DAILY #30 tabs 12/27/23 release (Adult Low Dose Aspirin) mupirocin 2 % topical ointment 1 appl topical BID #15 grams 12/27/23 Allergies Allergy/AdvReac Type Severity Reaction Status Date / Time No Known Allergies Allergy Verified 07/10/24 17:12 Review of Systems Review of Systems: Yes all other systems are reviewed and are negative Constitutional: Constitutional: Denies body ache(s), Denies chills and Denies fever(s) Eyes: Eyes: Denies change in vision ENT: Denies dizziness Cardiovascular: Cardiovascular: Denies chest pain, Denies Epigastric Pain, Denies leg ulcers, Denies palpitations and Denies dyspnea Respiratory: Respiratory: Denies dyspnea Gastrointestinal: Gastrointestinal: Denies bloating, Denies change in stool character and Denies nausea Genitourinary: Genitourinary: Denies hematuria, Denies dysuria and Denies urinary frequency Musculoskeletal: Musculoskeletal: Denies numbness and Denies tingling Neurologic: Denies confusion, Denies dizziness, Denies numbness and Denies tingling Psychiatric: Psychiatric: Denies confusion Endocrine: Endocrine: Denies palpitations PMFSH Past Medical History Medical History Hand lesion Hypothyroidism Rheumatoid arthritis Surgical History No pertinent past surgical history Family History Family History Other No family history of coronary artery disease Social History Social History Household Members: Spouse and Children Housing: Other Housing Other:: Mobile home. Do you presently have visiting nurse or other home services: No Alcohol intake: current Alcohol intake frequency: holidays/special occasions only Patient Tobacco Use Status: Never used Tobacco Advance Directives: No Advance Directives Information Provided: No Do you have a plan to hurt others: No Plan service: No Current occupational status: employed Physical Exam Vital Signs: Vital Signs: Last Vital Signs Temp 97.1 F 07/10/24 23:24 Pulse 70 07/10/24 23:24 Resp 18 07/10/24 23:24 BP 110/62 07/10/24 23:24 Pulse Ox 100 07/10/24 23:24 O2 Del Method Room Air 07/10/24 23:24 BMI result Body Mass Index 23.5 Const: General: cooperative, healthy appearing, comfortable and no acute distress; No confusion Nutritional Appearance: well nourished Orientation/consciousness: patient oriented x3 and No confusion Limitations: no limitations Neck: Neck: Yes no meningeal signs Resp: Effort & Inspection: normal respiratory effort and able to speak in complete sentences Cardio: Jugular venous distension: no JVD GI: Inspection: No distended Skin: Other: warm and dry; rash/edema of left 2nd metatarsal Neuro: General: patient oriented x3, moves all extremities, no meningeal signs, no focal motor deficits, CN's II-XI intact bilaterally and No confusion Cranial nerves: Yes CN's II-XII intact bilaterally and Yes Bilaterally intact EOM present Cognition (Neuro): normal cognition Extrem: Left lower extremity: foot Details: edema Location: of another digit Location: the 2nd digit; no unusual warmth Ankle/foot/toe images: 1. missing toenail, toe is erythematous/edematous. no drainage Psych: Other: calm and cooperative Appearance: grossly normal Mental Status: mental status grossly normal Speech and movement: Normal speech and movement present and Clear speech present Affect: normal affect Attitude: cooperative Thought process: Normal thought process present Thought content: Normal thought content present Insight: Good insight present (Psych) Judgement: Good judgement present (Psych) Course Course Course Narrative: This is a rapid medical exam. deferred additional HPI, ROS, PE to primary provider. 58 yo male with history of RA on Humira here with 2nd toe redness/swelling x 3 weeks. Lost toenail a few weeks ago then started having progressive redness/swelling. Will check labs, x-rays QUINTINS -Griffin Pretty APRN Medications Administered Discontinued Medications Generic Name Dose Route Start Last Admin Trade Name Freq PRN Reason Stop Dose Admin Sodium Chloride 1,000 mls @ 999 mls/hr 07/10/24 17:45 07/10/24 19:11 Ns IV 07/10/24 18:45 Infused .Q1H1M REGGIE Infusion Piperacillin Sod/Tazobactam 50 mls @ 100 mls/hr 07/10/24 18:04 07/10/24 20:25 Sod 3.375 gm/ Sodium Chloride IV 07/10/24 18:33 Infused ONCE ONE Infusion Iohexol 80 ml 07/10/24 20:15 07/10/24 20:15 Iohexol 350 Mg/Ml 100 Ml Infus..Btl IV 07/10/24 20:16 80 ml ONCE ONE Administration Medical Decision Making Medical Decision Making MDM Narrative: I Jazlyn Ventura PA-C have personally assessed and manage the patient, Violet ALAMO observed and helped to formulate the documentation Patient is a 58 year old male with a history of RA who presents with an infection of his left 2nd metatarsal after losing his toenail 3 weeks ago. He states the toe is swollen, red, and occasionally causes pain when he walks. The infection has been worsening over this time. He mentions that the left foot is now more swollen than the right. He has tried hydrogen peroxide for the infection. He denies drainage from the site, fevers, skin rashes/ulcers, and other systemic symptoms. Patient has a history of RA, anemia, and lactic acid acidosis. DDx: bacterial infection, osteomyelitis, GOUT, onychomycosis, fracture of metatarsal Plan: Given that the patient lost his toenail prior to symptoms, the symptoms becoming worse over time, and objective symptoms such as erythema and edema, I believe it is likely a superficial bacterial infection of the toe. Will assess with XRay of left foot and CBC. Osteomyelitis was considered due to the length of time of symptoms and pain when walking, however I think this is less likely due to the lack of ulcers on the skin and limited pain in the toe. Fracture of metatarsal is possible, however objective symptoms more consistent with infection, there is limited pain when walking, and patient is still able to perform ROM. Will assess for both with Xray and CBC. GOUT is also less likely since there is limited pain and because this is more likely to present on the great toe. I believe there is underlying onychomycosis of all toenails as they are thick, brittle, and yellow in color, and the patient is immunocompromised, however I do not believe this is the cause of his symptoms. Per Jazlyn Ventura PA-C Screening labs including inflammatory markers, lactic acid and blood cultures and an x-ray obtained from triage. Sadly, there was evidence of a pathologic fracture on the x-ray there was no evidence of osteomyelitis. We will be obtaining a CT scan to better differentiate. I do agree the patient has cellulitis, the CT scan we will better differentiate, I do not believe there was abscess formation given the absence of purulent drainage at the site. He is immunocompromised, therefore we will be starting empiric antibiotics, we will use Zosyn. There is objective unilateral calf swelling on the left, we will obtain a DVT study. I have independently reviewed the following tests: Labs: Leukocytosis, with left shift, not anemic, no electrolyte abnormality, lactate .8, CRP 1.7 X-ray left foot: XR/XR foot LT min 3V IMPRESSION: No evidence of osteomyelitis but fracture through the distal phalanx of second toe, possibly pathological fracture. Periarticular osteopenia and erosive changes in tarsometatarsal and tarsal joints Electronically signed by: Edith Chua MD 07/10/2024 05:49 PM EDT RP Ultrasound left lower extremity: US/US venous duplex LE LT IMPRESSION: No evidence of deep venous thrombosis involving the left lower extremity. Electronically signed by: Joe Whitten MD 07/10/2024 08:[address] left foot: Lab Data 07/10/24 17:18 07/10/24 17:18 Labs: Lab Results 07/10/24 Range/Units 17:18 WBC 12.8 H (4.8-10.8) X10*3/uL RBC 3.97 L (4.60-5.80) X10*6/uL Hgb 11.9 L (14.0-18.0) g/dl Hct 36.1 L (42.0-52.0) % MCV 90.9 (80.0-98.0) fL MCH 30.0 (27.0-33.0) pg MCHC 33.0 (31.0-36.0) g/dl RDW 16.8 H (11.0-16.0) % Plt Count 368 D (160-400) X10*3/uL MPV 8.5 L (9.4-12.4) fL Immature Gran % (Auto) 0.3 (0.0-0.4) % Neut % (Auto) 61.9 (45-73) % Lymph % (Auto) 23.2 (20-40) % [place] % (Auto) 12.2 H (2-11) % Eos % (Auto) 1.9 (0-4) % Baso % (Auto) 0.5 (0-2) % Lymph # (Auto) 3.0 (1.2-4.9) X10*3/uL [place] # (Auto) 1.6 H (0.1-1.2) X10*3/uL Eos # (Auto) 0.3 (0.0-0.4) X10*3/uL Baso # (Auto) 0.1 (0.0-0.2) X10*3/uL Abs Immat Gran (auto) 0.04 H (0.00-0.03) X10*3/uL Absolute Neuts (auto) 7.9 (2.0-8.3) x10*3/uL Absolute Nucleated RBC 0.000 (0.0-0.012) X10*3/uL Nucleated RBC % (auto) 0.0 (0.0-0.2) /100WBC Smear Tech's Comments VERIFIED ESR 19 H (0-15) MM/HR Sodium 138 (135-145) mmol/L Potassium 4.1 (3.3-5.1) mmol/L Chloride 105 (96-108) mmol/L Carbon Dioxide 26 (22-29) mmol/L Anion Gap 11 L (12-20) BUN 25 H (9-16) mg/dL Creatinine 1.03 (0.5-1.4) mg/dL Estim Creat Clear Calc 66.3 Estimated GFR > 60 Random Glucose 93 (60-115) mg/dL Lactic Acid 0.8 (0.5-2.0) mmol/L Calcium 9.6 (8.4-10.2) mg/dL Total Bilirubin 0.6 (0.0-1.0) mg/dL Direct Bilirubin 0.2 (0.0-0.5) mg/dL AST 30 (5-37) U/L ALT 19 (0-40) U/L Alkaline Phosphatase 90 (39-117) U/L C-Reactive Protein 1.70 H (< or = 0.50) mg/dL Total Protein 6.8 (6.5-8.0) g/dL Albumin 3.8 (3.5-5.0) g/dL Discharge Plan Discharge Clinical Impression: Cellulitis of foot, left, Rheumatoid arthritis, Pathological fracture of left foot Patient Disposition: Admitted As Inpatient Prescriptions: No Action multivitamin Tablet 1 tab PO DAILY methotrexate sodium 2.5 mg tablet 9 tab PO SA folic acid 1 mg tablet 1 tab PO DAILY levothyroxine 112 mcg tablet 1 tab PO DAILY@0600 Humira(CF) Pen 40 mg/0.4 mL pen injector kit 40 mg subcut Q2W naproxen 250 mg tablet 250 mg PO TID silver-calcium alginate 2 X 2 bandage 1 ea topical DAILY Qty: 100 0RF doxycycline monohydrate 100 mg capsule 100 mg PO BID Qty: 14 0RF amlodipine 2.5 mg tablet 2.5 mg PO DAILY Qty: 30 0RF aspirin [Adult Low Dose Aspirin] 81 mg tablet,delayed release (DR/EC) 81 mg PO DAILY Qty: 30 0RF mupirocin 2 % ointment 1 appl topical BID Qty: 15 0RF Print Language: Macedonian
[2024-07-10 17:26] LABS: Basophils Absolute Auto 0.1 X10*3/uL (0.0-0.2); Basophils Percent Auto 0.5 % (0-2); Eosinophils Absolute Auto 0.3 X10*3/uL (0.0-0.4); Eosinophils Percent Auto 1.9 % (0-4); Hematocrit 36.1 % (42.0-52.0); Hemoglobin 11.9 g/dl (14.0-18.0); Imm Gran Abs Auto 0.04 X10*3/uL (0.00-0.03); Imm Gran Pct Auto 0.3 % (0.0-0.4); Lymphocytes Percent Auto 23.2 % (20-40); MANUAL DIFF FLAG SCAN; Mean Corpuscular Volume 90.9 fL (80.0-98.0); Mean Platelet Volume 8.5 fL (9.4-12.4); Monocytes Absolute Auto 1.6 X10*3/uL (0.1-1.2); Monocytes Percent Auto 12.2 % (2-11); Neutrophils Absolute Auto 7.9 x10*3/uL (2.0-8.3); Neutrophils Percent Auto 61.9 % (45-73); Platelet Count 368 X10*3/uL (160-400); Red Blood Count 3.97 X10*6/uL (4.60-5.80); Red Cell Distribution Width 16.8 % (11.0-16.0); SCAN SMEAR FLAG 1; White Blood Count 12.8 X10*3/uL (4.8-10.8)
[2024-07-10 17:34] LABS: Lactic Acid 0.8 mmol/L (0.5-2.0)
[2024-07-10 17:39] LABS: Alanine Aminotransferase 19 U/L (0-40); Albumin Level 3.8 g/dL (3.5-5.0); Alkaline Phosphatase 90 U/L (39-117); Anion Gap 11 (12-20); Aspartate Amino Transferase 30 U/L (5-37); Bilirubin Direct 0.2 mg/dL (0.0-0.5); Bilirubin Total 0.6 mg/dL (0.0-1.0); Blood Urea Nitrogen 25 mg/dL (9-16); Calcium 9.6 mg/dL (8.4-10.2); Carbon Dioxide 26 mmol/L (22-29); Chloride 105 mmol/L (96-108); Creatinine Clr Calc Pharmacy 66.3; Estimated Glomerular Filt Rate > 60; Glucose Random 93 mg/dL (60-115); Potassium 4.1 mmol/L (3.3-5.1); Sodium 138 mmol/L (135-145); Total Protein 6.8 g/dL (6.5-8.0)
[2024-07-10 18:05] LABS: SLIDE REVIEW VERIFIED
[2024-07-10] MEDS: 0.9 % Sodium Chloride 1,000 ML 999 ML IV (18:07)
[2024-07-10 18:25] LABS: Erythrocyte Sedimentation Rate 19 MM/HR (0-15)
[2024-07-10] MEDS: Piperacillin Sodium/Tazobactam 3.375 GM in 0.9 % Sodium Chloride 50 ML IV (19:14)
[2024-07-10] MEDS: iohexoL 350 MG/ML 100 ML INFUS..BTL 80 ML IV (20:15)
[2024-07-10 21:16] VITALS: BP 125/65; PULSE 86; RESP 20; TEMP 36.9; O2SAT 100
[2024-07-10 23:24] VITALS: BP 110/62; PULSE 70; RESP 18; TEMP 36.2; O2SAT 100
--- NOTE | 2024-07-10 23:57 | PC.NURSE ---
Assumed care for pt at 2300. Pt sleeping at the bedside. No apparent distress noted. Breaths are even regular and unlabored with equal chest rises. Pending admit orders. Monitoring is ongoing.
--- NOTE | 2024-07-11 00:08 | PM.IMHP ---
History of Present Illness Date of Service: 07/11/24 Chief Complaint: Foot infection This is a 58-year-old male with pertinent history of rheumatoid arthritis, hypertension, hypothyroidism who presents to the emergency department for concerns of foot infection. Patient states he lost his toenail 3 weeks ago. Over the last few days he noticed that his left 2nd toe has been red and painful. Pain is worse with ambulation. Also noticed that it was swollen and the swelling had spread to the foot. It is foul-smelling with purulent drainage. The infection has been progressive. Patient did not try oral antibiotics for it. He tried hydrogen peroxide but no improvement in symptoms. Admits associated chills but no documented fever. No chest pain, palpitations, shortness of breath, abdominal pain, changes in urinary or bowel habits. In the emergency department, venous duplex left lower extremity negative. No evidence of osteomyelitis on x-ray. Patient was given IV antibiotics and CT ordered Review of Systems Constitutional: Constitutional: Reports chills Cardiovascular: Cardiovascular: Reports no additional cardiovascular complaints Respiratory: Respiratory: Reports no additional respiratory complaints Gastrointestinal: Gastrointestinal: Reports no additional gastrointestinal complaints Genitourinary: Genitourinary: Reports no additional male genitourinary complaints [facility] Medical History Hand lesion Hypothyroidism Rheumatoid arthritis Family History Other No family history of coronary artery disease Pertinent family history: No family history of early CAD Surgical History No pertinent past surgical history Social History Household Members: Spouse and Children Housing: Other Housing Other:: Mobile home. Do you presently have visiting nurse or other home services: No Alcohol intake: current Alcohol intake frequency: does not drink Patient Tobacco Use Status: Never used Tobacco Smoked in Last 30 Days: No Use of substances other than those prescribed or required for medical reasons: No Advance Directives: No Advance Directives Information Provided: No Do you have a plan to hurt others: No Plan service: No Current occupational status: employed Meds Allergies Allergy/AdvReac Type Severity Reaction Status Date / Time No Known Allergies Allergy Verified 07/10/24 17:12 Home Medications ?Medication ?Instructions ?Recorded ?Confirmed ?Last Taken ?Type adalimumab 40 mg/0.4 mL 40 mg subcut Q2W 04/24/22 12/17/23 12/12/23 History subcutaneous pen kit (Humira(CF) Pen) folic acid 1 mg tablet 1 tab PO DAILY 04/24/22 12/17/23 12/17/23 History levothyroxine 112 mcg tablet 1 tab PO DAILY@0600 04/24/22 12/17/23 12/17/23 History methotrexate sodium 2.5 mg tablet 9 tab PO SA 04/24/22 12/17/23 12/12/23 History multivitamin 1 tab PO DAILY 04/24/22 12/17/23 12/17/23 History naproxen 250 mg tablet 250 mg PO TID 12/17/23 12/17/23 12/17/23 History Physical Exam Vital Signs and Narrative: Vital Signs: Last Vital Signs Temp 97.1 F 07/10/24 23:24 Pulse 70 07/10/24 23:24 Resp 18 07/10/24 23:24 BP 110/62 07/10/24 23:24 Pulse Ox 100 07/10/24 23:24 O2 Del Method Room Air 07/10/24 23:24 BMI result Body Mass Index 23.5 Middle-aged male lying in bed in no distress Neck supple, no JVD Regular rate and rhythm, S1-S2 heard Regular breath sounds bilaterally, no wheezing or crackles appreciated Abdomen soft nontender, no guarding, no rigidity Patient is awake, alert and oriented to self, place, time and person ; no focal motor deficit Psych: Normal mood Left 2nd toe with erythema, warmth, swelling and tenderness Results Labs 07/10/24 17:18 07/10/24 17:18 Labs: Laboratory Results - last 24 hr 07/10/24 17:18 MCV 90.9 MCH 30.0 MCHC 33.0 RDW 16.8 H Plt Count 368 D MPV 8.5 L Immature Gran % (Auto) 0.3 Neut % (Auto) 61.9 Lymph % (Auto) 23.2 [place] % (Auto) 12.2 H Eos % (Auto) 1.9 Baso % (Auto) 0.5 Lymph # (Auto) 3.0 [place] # (Auto) 1.6 H Eos # (Auto) 0.3 Baso # (Auto) 0.1 Abs Immat Gran (auto) 0.04 H Absolute Neuts (auto) 7.9 Absolute Nucleated RBC 0.000 Nucleated RBC % (auto) 0.0 Smear Tech's Comments VERIFIED ESR 19 H Anion Gap 11 L Estim Creat Clear Calc 66.3 Estimated GFR > 60 Random Glucose 93 Lactic Acid 0.8 Calcium 9.6 Total Bilirubin 0.6 Direct Bilirubin 0.2 AST 30 ALT 19 Alkaline Phosphatase 90 C-Reactive Protein 1.70 H Total Protein 6.8 Albumin 3.8 Imaging Radiologist's Impressions: Impressions Foot X-Ray 07/10/24 17:05 IMPRESSION: No evidence of osteomyelitis but fracture through the distal phalanx of second toe, possibly pathological fracture. Periarticular osteopenia and erosive changes in tarsometatarsal and tarsal joints Electronically signed by: Edith Chua MD 07/10/2024 05:49 PM EDT RP Venous Duplex 07/10/24 19:15 IMPRESSION: No evidence of deep venous thrombosis involving the left lower extremity. Electronically signed by: Joe Whitten MD 07/10/2024 08:05 PM EDT RP Assessment and Plan (1) Cellulitis of foot, left: Status: Acute Plan This is a 58-year-old male with pertinent history of rheumatoid arthritis, hypertension, hypothyroidism who presents to the emergency department for concerns of foot infection. #. Acute left toe purulent cellulitis: Will admit patient with IV vancomycin due to extensive cellulitis. Consulting Wound Care. Imaging pending to delineate underlying anatomy. #. Rheumatoid arthritis: On methotrexate, Humira and folic acid #. Hypothyroidism: On Synthroid Med rec pending DVT prophylaxis: Lovenox Full code Admit as inpatient and will require two night minimum hospital stay for IV antibiotics (as above), which is not possible in a lesser acute setting. Quality Stroke Does the patient have a stroke diagnosis?: No VTE Prior VTE?: No VTE Risk Level:: Medical - moderate - high VTE Device Contraindication: Treatment Not Indicated VTE Drug Contraindication: N/A - Med Ordered
[2024-07-11] MEDS: vancomycin HCL 1,500 MG in 0.9 % Sodium Chloride 500 ML 333.33 MG IV (00:46)
--- NOTE | 2024-07-11 01:54 | PC.NURSE ---
pt from the Main ED, report received from Rosario Vergara RN, assume care of pt at this time. Pt oriented to room, and bed, pt denies needs at this time, will cont plan of care
--- NOTE | 2024-07-11 03:48 | PC.NURSE ---
resting quietly in bed, with eyes closed, resp with ease, no s/s of acute distress, will cont plan of care
[2024-07-11 04:48] LABS: MANUAL DIFF FLAG NO
[2024-07-11 04:50] LABS: Basophils Absolute Auto 0.1 X10*3/uL (0.0-0.2); Basophils Percent Auto 0.7 % (0-2); Eosinophils Absolute Auto 0.5 X10*3/uL (0.0-0.4); Eosinophils Percent Auto 4.7 % (0-4); Hematocrit 33.9 % (42.0-52.0); Hemoglobin 10.9 g/dl (14.0-18.0); Imm Gran Abs Auto 0.03 X10*3/uL (0.00-0.03); Imm Gran Pct Auto 0.3 % (0.0-0.4); Lymphocytes Absolute Auto 2.3 X10*3/uL (1.2-4.9); Lymphocytes Percent Auto 23.6 % (20-40); Mean Corpuscular HGB Conc 32.2 g/dl (31.0-36.0); Mean Corpuscular Hemoglobin 29.5 pg (27.0-33.0); Mean Corpuscular Volume 91.9 fL (80.0-98.0); Mean Platelet Volume 8.8 fL (9.4-12.4); Monocytes Absolute Auto 1.3 X10*3/uL (0.1-1.2); Monocytes Percent Auto 13.2 % (2-11); Neutrophils Absolute Auto 5.5 x10*3/uL (2.0-8.3); Neutrophils Percent Auto 57.5 % (45-73); Platelet Count 334 X10*3/uL (160-400); Red Blood Count 3.69 X10*6/uL (4.60-5.80); Red Cell Distribution Width 17.1 % (11.0-16.0); White Blood Count 9.6 X10*3/uL (4.8-10.8)
[2024-07-11 05:13] LABS: Anion Gap 9 (12-20); Blood Urea Nitrogen 22 mg/dL (9-16); Calcium 8.4 mg/dL (8.4-10.2); Carbon Dioxide 24 mmol/L (22-29); Chloride 110 mmol/L (96-108); Estimated Glomerular Filt Rate > 60; Glucose Random 92 mg/dL (60-115); Potassium 4.6 mmol/L (3.3-5.1); Sodium 138 mmol/L (135-145)
--- NOTE | 2024-07-11 05:49 | PC.NURSE ---
pt c/o that his toe is tingling, states the medicine, is working, refused pain meds, will cont plan of care
[2024-07-11 05:55] VITALS: BP 111/55; PULSE 63; RESP 16; TEMP 37; O2SAT 99
--- NOTE | 2024-07-11 07:23 | PHA.PROG ---
Admission Date/Time: July 11, 2024 00:06 Indication: skin Weight in k kg Adjusted body weight in K.5 [place] body weight in Kg: Obesity Dosing Indication % IBW: Serum Creatinine - Last 168 Hours 07/10/24 07/11/24 17:18 04:04 Creatinine 1.03 0.91 Estimated CrCl and GFR - Last 168 Hours 07/10/24 07/11/24 17:18 04:04 Estim Creat Clear Calc 66.3 75.0 Estimated GFR > 60 > 60 Vancomycin Loading Dose: 1500 Current Vancomycin Dosing Regimen: 750 Q12H Vancomycin Monitoring using AUC goal of 400 - 600 range with trough as surrogate marker: 471 Date and Time for next Vancomycin Level to be drawn: 07/12 @1100 Pharmacist Comments on Vancomycin Plan: Vancomycin dosing will take advantage of [employer] as a clinical decision support tool that uses Bayesian modeling to calculate individual patient's pharmacokinetic parameters and forecast the patient's drug concentration time course with the target goal AUC 24 range of 400 - 600 mg/L/hr.
[2024-07-11] MEDS: 0.9 % Sodium Chloride Flush 3 ML SYRINGE IVFLUSH ×3 (07:48→23:09)
[2024-07-11 08:09] VITALS: BP 112/57; PULSE 75; RESP 16; TEMP 36.4; O2SAT 95
[2024-07-11 08:28] VITALS: BMI 22.8
--- NOTE | 2024-07-11 08:29 | PHA.MEDREC ---
Pharmacy Consult ? Medication Reconciliation Pharmacy has completed the medication reconciliation. Spoke with pt to confirm medications. Pt states he is no longer on Amlodipine (last filled 12/27/23). Last took Humira and MTX this past Thursday (07/09/24).
[2024-07-11] MEDS: Enoxaparin Sodium 40 MG/0.4 ML SYRINGE SUBCUT (09:21)
[2024-07-11 09:22] VITALS: BMI 22.6
[2024-07-11] MEDS: vancomycin HCL 750 MG in 0.9 % Sodium Chloride 250 ML 265 MG IV ×2 (14:07→23:13)
--- NOTE | 2024-07-11 14:12 | PM.EVENT ---
Event Note Date of Service: 07/11/24 Event Note: Admitted for left foot 2nd toe swelling redness and foul discharge At present patient denies fever, no chills Left 2nd toe swollen hyperemic , loss of nail with small oozing a/p 58-year-old male with pertinent history of rheumatoid arthritis, hypertension, hypothyroidism who presents to the emergency department for concerns of foot infection. #. 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 WBC normalized, ESR 19, CRP 1.70 , follow blood cultures, vanco trough and renal function #. Rheumatoid arthritis: Hold methotrexate and Humira due to acute infection , hold Motrin. #. Hypothyroidism: On Synthroid DVT prophylaxis: Lovenox Full code Admit as inpatient and will require two night minimum hospital stay for IV antibiotics (as above), which is not possible in a lesser acute setting. Time Spent With Patient Time: Total time managing care of this patient today ____ minutes.
[2024-07-11] MEDS: Levothyroxine Sodium 112 MCG TABLET PO (15:08)
[2024-07-11] MEDS: Aspirin Enteric Coated 81 MG TABLET.DR PO (15:08)
[2024-07-11 15:33] VITALS: BP 119/61; PULSE 73; RESP 16; TEMP 36.6; O2SAT 94
--- NOTE | 2024-07-11 17:22 | HO.WOUND ---
Wound Consult: Initial 58yr old Male? admitted to [facility] [place] on 07/11/24 - See progress notes and H&P for detailed history.? Wound consult placed for Left 2nd toe wound POA.? Patient agreeable to assessment and photo documentation.? Left Foot Left 2nd Toe Left 2nd Toe Etiology: ??Neuropathic Wound Present on Admission Measurements: 0.8cm x 1cmx 0.1cm Wound Bed: Red moist wound bed Drainage / Odor: serosang after drainage Edges: ? well defined Ольга wound: ?Red erythema noted, swelling noted dry epidermal layer noted Pain: mild pain reported at times - reports neuropathy that comes and goes at times. Goals of Treatment: ? Moist wound healing with Durafiber Patient reports significant improvement from his observation since ysterday. Patient was educated to follow up with oupt wound clinic and pot fisher given the joint deformity and thickened nails podiatry will help with overall foot health and wound clinic can help for wound healing. He demonstrates understanding. He reports he has podiatry appt with Dr. Peck at the end of next month. Recommendations: 1. Left 2nd Toe - Cleanse with NS moist gauze or with routine showering (Soap and water). Pat dry. Apply cut to size Durafiber AG, cover completely with dry gauze dressing. Change every 3 days and PRN for loose dressing. Should consider off loading pressure from shoes. Recommend follow up out patient Wound Clinic at [address] [place] [id number] and to call for an appointment at time of discharge. [phone].? Re-consult wound care Nurse for wound deterioration or wound changes.
[2024-07-11 19:29] VITALS: BP 122/61; PULSE 72; RESP 18; TEMP 36.6; O2SAT 93
[2024-07-12 03:41] VITALS: BP 100/56; PULSE 58; RESP 18; TEMP 36; O2SAT 98
[2024-07-12] MEDS: Levothyroxine Sodium 112 MCG TABLET PO (06:15)
[2024-07-12 07:32] VITALS: BP 134/61; PULSE 60; RESP 16; TEMP 36.1; O2SAT 99
[2024-07-12] MEDS: Multivitamin TABLET 1 TAB PO (08:07)
[2024-07-12] MEDS: Enoxaparin Sodium 40 MG/0.4 ML SYRINGE SUBCUT (08:07)
[2024-07-12] MEDS: 0.9 % Sodium Chloride Flush 3 ML SYRINGE IVFLUSH ×3 (08:07→23:43)
[2024-07-12] MEDS: Aspirin Enteric Coated 81 MG TABLET.DR PO (08:07)
[2024-07-12] MEDS: Folic Acid 1 MG TABLET PO (08:07)
[2024-07-12 08:17] LABS: Creatinine Clr Calc Pharmacy 69.7; Estimated Glomerular Filt Rate > 60
--- NOTE | 2024-07-12 11:35 | P.PNIM_ITS ---
Subjective Subjective Date of Service: 07/12/24 Interval History: Feeling better , denies fever chills, no foot pain, feels redness, swelling of left 2nd toe improving, no acute events overnight, tolerating diet, no diarrhea. Review of Systems All other system reviewed and are negative Physical Exam 2 Vital Signs: Vital Signs: Last Vital Signs Temp 97.0 F 07/12/24 07:32 Pulse 60 07/12/24 07:32 Resp 16 07/12/24 07:32 BP 134/61 07/12/24 07:32 Pulse Ox 99 07/12/24 07:32 O2 Del Method Room Air 07/12/24 07:32 BMI result Body Mass Index 22.6 Const: Other: General resting comfortably in no acute distress. Anicteric sclera Neck no JVD. CVS regular rate rhythm, Respiratory lungs clear to auscultation, no respiratory distress, no wheeze, no rhonchi. Gastrointestinal abdomen soft, non tender, bowel sounds audible, no no guarding , no rigidity. Extremities no edema. Left 2nd toe swollen with redness and small open wound 0.8 cm x 1 cm x 0.1 cm at tip of toe with mild serosanguineous drainage Neuro non focal Psych appropriate affect Objective Data Active Medications Acetaminophen (Acetaminophen 325 Mg Tablet) 650 mg PO Q6H PRN PRN Reason: Pain, Mild (Pain Scale 1-3), fever or headache Aspirin (Aspirin Enteric Coated 81 Mg Tablet.) 81 mg PO DAILY [facility] Last Admin: 07/12/24 08:07 Dose: 81 mg Documented By: COTEMA Calcium Carbonate (Calcium Carbonate 750 Mg Tab.Chew) 750 mg PO Q4H PRN PRN Reason: Heartburn Enoxaparin Sodium (Enoxaparin Sodium 40 Mg/0.4 Ml Syringe) 40 mg SUBCUT Q24H [facility] Last Admin: 07/12/24 08:07 Dose: 40 mg Documented By: COTEMA Folic Acid (Folic Acid 1 Mg Tablet) 1 mg PO DAILY [facility] Last Admin: 07/12/24 08:07 Dose: 1 mg Documented By: LATRICEEMA Vancomycin HCl 750 mg/ Sodium (Chloride) 265 mls @ 265 mls/hr IV Q12H [facility] Last Infusion: 07/12/24 00:19 Dose: Infused Documented By: EVA Levothyroxine Sodium (Levothyroxine Sodium 112 Mcg Tablet) 112 mcg PO DAILY@0600 [facility] Last Admin: 07/12/24 06:15 Dose: 112 mcg Documented By: EVA Magnesium Hydroxide (Milk Of Magnesia 30 Ml Oral.Susp) 30 ml PO DAILY PRN PRN Reason: Constipation Melatonin (Melatonin 3 Mg Tablet) 6 mg PO BEDTIME PRN PRN Reason: Insomnia Multivitamins/Vitamin C (Multivitamin Tablet) 1 tab PO DAILY [facility] Last Admin: 07/12/24 08:07 Dose: 1 tab Documented By: LELAND Ondansetron HCl (Ondansetron Hcl 4 Mg/2 Ml Vial) 4 mg IVPUSH Q8H PRN PRN Reason: Nausea and Vomiting Pharmacy Consult (Consult Rx Vancomycin Dosing) 1 each MISCELLANE DAILY PRN PRN Reason: Consult order Sodium Chloride (0.9 % Sodium Chloride Flush 3 Ml Syringe) 3 ml IVFLUSH QSHIFT [facility] Last Admin: 07/12/24 08:07 Dose: 3 ml Documented By: LELAND Labs 07/11/24 04:04 07/12/24 06:13 Labs: Laboratory Results - last 24 hr 07/12/24 06:13 Estim Creat Clear Calc 69.7 Estimated GFR > 60 Microbiology Microbiology Results: Microbiology 07/10/24 17:52 Blood Culture - Preliminary Blood - Venous No growth after 24 hours. 07/10/24 17:49 Blood Culture - Preliminary Blood - Venous No growth after 24 hours. Assessment and Plan (1) Pathological fracture of left foot: Status: Acute (2) Cellulitis of foot, left: Status: Acute (3) Rheumatoid arthritis: Status: Acute Plan 58-year-old male with pertinent history of rheumatoid arthritis, hypertension, hypothyroidism who presents to the emergency department for concerns of foot infection. #. 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 WBC normalized, ESR 19, CRP 1.70 , follow blood cultures, vanco trough and renal function Seen by wound nurse she recommends dura fiber Ag and dry gauze dressing change every 3 days and offloading boots Outpatient follow-up at wound clinic recommend to call for appointment at time of discharge at [phone] #. Rheumatoid arthritis: Hold methotrexate and Humira due to acute infection , hold Motrin. #. Hypothyroidism: On Synthroid DVT prophylaxis: Lovenox Full code Patient requires continued inpatient hospitalization for IV antibiotics (as above), which is not possible in a lesser acute setting. Quality Stroke Does the patient have a stroke diagnosis?: No VTE Prior VTE?: No VTE Risk Level:: Medical - moderate - high VTE Device Contraindication: Treatment Not Indicated VTE Drug Contraindication: N/A - Med Ordered
[2024-07-12 11:39] LABS: Vancomycin Random 15.9 mcg/mL (15-20)
--- NOTE | 2024-07-12 11:46 | HE.PHANOTE ---
RE: Vanco Changing dose to 1500mg Q24H per 15.9 trough and SCr increase. Predicted trough 14.9, predicted AUC 548. Next trough to be drawn 07/13 @2100.
--- NOTE | 2024-07-12 15:29 | HO.WOUND ---
Wound Consult: Attempted 58yr old Male? [place] [facility] [place] See progress notes and H&P for detailed history.? Wound consult follow up for Left 2nd toe wound POA.? Patient agreeable to assessment and photo documentation.? Left Foot 07/11/24 07/12/24 Left 2nd Toe 07/11/24 07/12/24 Left 2nd Toe - Overall Improving wound bed and periwound Etiology: ??Neuropathic Wound Present on Admission Measurements: 0.8cm x 1cmx 0.1cm Wound Bed: Red moist wound bed Drainage / Odor: serosang Edges: ? well defined Ольга wound: ?improving Red erythema noted, improving swelling noted Pain: mild pain reported at times - reports neuropathy that comes and goes at times. Goals of Treatment: ? Moist wound healing with Durafiber No new topical recommendations needed at this time. Continue to use Durafiber AG. Patient reports significant improvement from his observation since yesterday. Patient was educated to follow up with oupt wound clinic and tape editor given the joint deformity and thickened nails podiatry will help with overall foot health and wound clinic can help for wound healing. He demonstrates understanding. He reports he has podiatry appt with Dr. Peck at the end of next month. Recommendations: 1. Left 2nd Toe - Cleanse with NS moist gauze or with routine showering (Soap and water). Pat dry. Apply cut to size Durafiber AG, cover completely with dry gauze dressing. Change every 3 days and PRN for loose dressing. Should consider off loading pressure from shoes. Recommend follow up out patient Wound Clinic at [address] [place] [id number] and to call for an appointment at time of discharge. [phone].? Re-consult wound care Nurse for wound deterioration or wound changes.
[2024-07-12 15:40] VITALS: BP 133/69; PULSE 70; RESP 20; TEMP 36.2; O2SAT 99
[2024-07-12 19:42] VITALS: BP 103/58; PULSE 78; RESP 20; TEMP 36.2; O2SAT 100
--- NOTE | 2024-07-12 20:40 | W.PM.IDCN ---
History of Present Illness Data of Consult Service Date: 07/11/24 Requesting physician: Ginny Brownlee Primary Care Provider: Keaton Briones MD HPI Reason for consult: OM left second distal phalanx He presents with redness and swelling left second distal phalanx three weeks ago, worsening. He had lost toenail about a month ago. He has RA and anemia and is on Humira. Review of Systems Review of Systems: Yes all other systems are reviewed and are negative PMFSH Past Medical History Medical History (Updated 07/12/24 @ 20:50 by Zahraa Cole MD) Osteomyelitis Hand lesion Hypothyroidism Rheumatoid arthritis Family History Family History Other No family history of coronary artery disease Family history: reviewed and not pertinent Surgical History Surgical History No pertinent past surgical history Social History Social History Household Members: Spouse Housing: Other Housing Other:: Mobile home. Do you presently have visiting nurse or other home services: No Alcohol intake: current Alcohol intake frequency: does not drink Patient Tobacco Use Status: Never used Tobacco Smoked in Last 30 Days: No Patient Interested in Nicotine Replacement: No Patient Given Instructions on How to Stop Smoking: No Second Hand Smoke Exposure: No Use of substances other than those prescribed or required for medical reasons: No Currently Displaying Signs/Symptoms of Drug Intoxication Withdrawal: No Any prior treatment program specific to substance use: No Have you been hit, kicked, punched, or otherwise hurt by someone within the past year? If so, by whom?: No Do you feel safe in your current relationship?: Yes Is there a partner from a previous relationship who is making you feel unsafe now?: No Advance Directives: No Advance Directives Information Provided: No Do you have a plan to hurt others: No Plan Recently lost weight without trying: No Eating poorly because of decreased appetite: No Nutrition Risks: No Nutritional Risk Poor oral hygiene: No service: No Current occupational status: employed Meds Allergies Allergy/AdvReac Type Severity Reaction Status Date / Time No Known Allergies Allergy Verified 07/10/24 17:12 Active Medications: Current Medications Acetaminophen (Acetaminophen 325 Mg Tablet) 650 mg PO Q6H PRN PRN Reason: Pain, Mild (Pain Scale 1-3), fever or headache Aspirin (Aspirin Enteric Coated 81 Mg Tablet.Dr) 81 mg PO DAILY [facility] Last Admin: 07/12/24 08:07 Dose: 81 mg Calcium Carbonate (Calcium Carbonate 750 Mg Tab.Chew) 750 mg PO Q4H PRN PRN Reason: Heartburn Enoxaparin Sodium (Enoxaparin Sodium 40 Mg/0.4 Ml Syringe) 40 mg SUBCUT Q24H [facility] Last Admin: 07/12/24 08:07 Dose: 40 mg Folic Acid (Folic Acid 1 Mg Tablet) 1 mg PO DAILY [facility] Last Admin: 07/12/24 08:07 Dose: 1 mg Vancomycin HCl 1,500 mg/ (Sodium Chloride) 500 mls @ 333.333 mls/hr IV Q24H [facility] Levothyroxine Sodium (Levothyroxine Sodium 112 Mcg Tablet) 112 mcg PO DAILY@0600 [facility] Last Admin: 07/12/24 06:15 Dose: 112 mcg Magnesium Hydroxide (Milk Of Magnesia 30 Ml Oral.Susp) 30 ml PO DAILY PRN PRN Reason: Constipation Melatonin (Melatonin 3 Mg Tablet) 6 mg PO BEDTIME PRN PRN Reason: Insomnia Multivitamins/Vitamin C (Multivitamin Tablet) 1 tab PO DAILY [facility] Last Admin: 07/12/24 08:07 Dose: 1 tab Ondansetron HCl (Ondansetron Hcl 4 Mg/2 Ml Vial) 4 mg IVPUSH Q8H PRN PRN Reason: Nausea and Vomiting Pharmacy Consult (Consult Rx Vancomycin Dosing) 1 each MISCELLANE DAILY PRN PRN Reason: Consult order Sodium Chloride (0.9 % Sodium Chloride Flush 3 Ml Syringe) 3 ml IVFLUSH QSHIFT [facility] Last Admin: 07/12/24 15:28 Dose: 3 ml Home Medications ?Medication ?Instructions ?Recorded ?Confirmed ?Last Taken ?Type adalimumab 40 mg/0.4 mL 40 mg subcut Q2W 04/24/22 07/11/24 07/09/24 History subcutaneous pen kit (Humira(CF) Pen) folic acid 1 mg tablet 1 tab PO DAILY 04/24/22 07/11/24 07/10/24 History levothyroxine 112 mcg tablet 1 tab PO DAILY@0600 04/24/22 07/11/24 07/10/24 History methotrexate sodium 2.5 mg tablet 9 tab PO SA 04/24/22 07/11/24 07/09/24 History multivitamin 1 tab PO DAILY 04/24/22 07/11/24 07/10/24 History ciclopirox 8 % topical solution topical BEDTIME 07/11/24 07/10/24 History ibuprofen 800 mg tablet 800 mg PO Q8H PRN pain 07/11/24 07/11/24 Unknown History melatonin 3 mg capsule 3 mg PO BEDTIME PRN Insomnia 07/11/24 07/11/24 Unknown History Physical Exam Vital Signs: Vital Signs: Last Vital Signs Temp 97.1 F 07/12/24 19:42 Pulse 78 07/12/24 19:42 Resp 20 07/12/24 19:42 BP 103/58 L 07/12/24 19:42 Pulse Ox 100 07/12/24 19:42 O2 Del Method Room Air 07/12/24 19:42 BMI result Body Mass Index 22.6 Const: General: cooperative HEENT: Head: Yes normal to inspection Face and sinus: Yes normal facial exam Mouth: Normal oral and palatal mucosa present Teeth and gingiva: dentition normal Eyes: General: appearance normal, both eyes and all related structures Pupils: Equal, round and reactive pupils present Resp: Effort & Inspection: normal respiratory effort Cardio: Rate: regular rate Rhythm: regular rhythm GI: Palpation (GI): Soft to palpation and nontender : General: Yes no CVA tenderness Back/Spine/Pelvis: Back: no CVA tenderness Skin: General skin exam: no rashes or lesions noted Neuro: General: moves all extremities Cranial nerves: Yes Equal, round and reactive pupils present Extrem: Other: left foot redness and swelling,open area clean ulcer tip where nail fell off Psych: Appearance: grossly normal Results Labs 07/11/24 04:04 07/12/24 06:13 Labs: BMP 07/12/24 06:13 Creatinine 0.98 Microbiology Microbiology Results: Microbiology 07/10/24 17:52 Blood - Venous Blood Culture - Preliminary No growth after 48 hours. 07/10/24 17:49 Blood - Venous Blood Culture - Preliminary No growth after 48 hours. Assessment and Plan (1) Rheumatoid arthritis: Status: Acute (2) Cellulitis of foot, left: Status: Acute (3) Pathological fracture of left foot: Status: Acute (4) Osteomyelitis: Status: Acute Plan He has OM likely left second toe. He has no specific organism. He has likely staph or strep however. Would give IV Vancomycin for six weeks. Weekly CBC, creatinine and Vancomycin level. Follow Wound Clinic outpatient.
[2024-07-12] MEDS: vancomycin HCL 1,500 MG in 0.9 % Sodium Chloride 500 ML 333.33 MG IV (22:08)
[2024-07-13 03:20] VITALS: BP 100/53; PULSE 73; RESP 16; TEMP 36.4; O2SAT 99
[2024-07-13] MEDS: Levothyroxine Sodium 112 MCG TABLET PO (05:07)
[2024-07-13 05:54] LABS: Creatinine Clr Calc Pharmacy 75.9; Estimated Glomerular Filt Rate > 60
[2024-07-13] MEDS: Folic Acid 1 MG TABLET PO (07:17)
[2024-07-13] MEDS: 0.9 % Sodium Chloride Flush 3 ML SYRINGE IVFLUSH ×2 (07:17→16:43)
[2024-07-13] MEDS: Multivitamin TABLET 1 TAB PO (07:17)
[2024-07-13] MEDS: Aspirin Enteric Coated 81 MG TABLET.DR PO (07:17)
[2024-07-13] MEDS: Enoxaparin Sodium 40 MG/0.4 ML SYRINGE SUBCUT (07:18)
[2024-07-13 07:34] VITALS: BP 111/56; PULSE 66; RESP 14; TEMP 36.4; O2SAT 100
--- NOTE | 2024-07-13 11:27 | P.PICC_ITS ---
PICC Line Insertion NPICC Diagnosis: Osteomyelitis Indication: 6wks Vancomycin Pertinent Labs: reviewed Technique: Following informed consent including risks, benefits and alternatives and using sterile technique including cap and mask, sterile gown, glove and drape, the right arm was prepped and draped in the usual sterile fashion of full barrier technique with CHG. Following completion of [place] Protocol the skin and soft tissues were anesthetized with 1% Lidocaine plain. Using ultrasound guidance, right basilic vein access was obtained. Over an 0.018 wire through peel-away sheath, a 4fr single lumen PASV PICC line was positioned. Catheter length is internal length, 39cm external length 0cm, for a total trimmed length of 39cm. The procedure was performed in rm 272. Tip verification was performed by Lane Caputo with Sherlock 3CG. Tip located in SVC. Ultrasound was used to document vein patency and for needle entry. A formal ultrasound picture and cardiac rhythm strip was recorded. Vascular Telephone Station Installer has released the line for use and it is currently dressed with a StatLock, Tegaderm, and CHG disc. Verification has been performed for blood return and line patency. Arm Circumference: 32cm Equipment: General Fusion PowerPICC SOLO catheter with sherlock tip 3CG Catheter Type: 4FR single lumen PASV Lot #: [id number]
[2024-07-13] MEDS: 0.9 % Sodium Chloride Flush 10 ML SYRINGE 5 ML IVFLUSH ×2 (12:55→19:38)
--- NOTE | 2024-07-13 14:32 | P.PNIM_ITS ---
Subjective Subjective Date of Service: 07/13/24 Interval History: Being followed for left 2nd toe osteomyelitis and foot cellulitis. Feeling better less redness and swelling left 2nd toe, cellulitis left foot resolved, no fevers, no chills tolerating diet no nausea, no vomiting or abdominal pain ambulating in hallways, no acute events overnight. Review of Systems All other system reviewed and negative. Physical Exam 2 Vital Signs: Vital Signs: Last Vital Signs Temp 97.5 F 07/13/24 07:34 Pulse 66 07/13/24 07:34 Resp 14 07/13/24 07:34 BP 111/56 L 07/13/24 07:34 Pulse Ox 100 07/13/24 07:34 O2 Del Method Room Air 07/13/24 07:34 BMI result Body Mass Index 22.6 Const: Other: General resting comfortably in no acute distress. Anicteric sclera Neck no JVD. CVS regular rate rhythm, Respiratory lungs clear to auscultation, no respiratory distress, no wheeze, no rhonchi. Gastrointestinal abdomen soft, non tender, bowel sounds audible, no no guarding , no rigidity. Extremities no edema. Left 2nd toe swollen with redness and small open wound 0.8 cm x 1 cm x 0.1 cm at tip of toe with mild serosanguineous drainage, improving Neuro non focal Psych appropriate affect Objective Data Active Medications Acetaminophen (Acetaminophen 325 Mg Tablet) 650 mg PO Q6H PRN PRN Reason: Pain, Mild (Pain Scale 1-3), fever or headache Aspirin (Aspirin Enteric Coated 81 Mg Tablet.) 81 mg PO DAILY [facility] Last Admin: 07/13/24 07:17 Dose: 81 mg Documented By: VINCENT Calcium Carbonate (Calcium Carbonate 750 Mg Tab.Chew) 750 mg PO Q4H PRN PRN Reason: Heartburn Enoxaparin Sodium (Enoxaparin Sodium 40 Mg/0.4 Ml Syringe) 40 mg SUBCUT Q24H [facility] Last Admin: 07/13/24 07:18 Dose: 40 mg Documented By: VINCENT Folic Acid (Folic Acid 1 Mg Tablet) 1 mg PO DAILY [facility] Last Admin: 07/13/24 07:17 Dose: 1 mg Documented By: VINCENT Vancomycin HCl 1,500 mg/ (Sodium Chloride) 500 mls @ 333.333 mls/hr IV Q24H [facility] Levothyroxine Sodium (Levothyroxine Sodium 112 Mcg Tablet) 112 mcg PO DAILY@0600 [facility] Last Admin: 07/13/24 05:07 Dose: 112 mcg Documented By: ROCHELLE Magnesium Hydroxide (Milk Of Magnesia 30 Ml Oral.Susp) 30 ml PO DAILY PRN PRN Reason: Constipation Melatonin (Melatonin 3 Mg Tablet) 6 mg PO BEDTIME PRN PRN Reason: Insomnia Multivitamins/Vitamin C (Multivitamin Tablet) 1 tab PO DAILY [facility] Last Admin: 07/13/24 07:17 Dose: 1 tab Documented By: VINCENT Ondansetron HCl (Ondansetron Hcl 4 Mg/2 Ml Vial) 4 mg IVPUSH Q8H PRN PRN Reason: Nausea and Vomiting Pharmacy Consult (Consult Rx Vancomycin Dosing) 1 each MISCELLANE DAILY PRN PRN Reason: Consult order Sodium Chloride (0.9 % Sodium Chloride Flush 3 Ml Syringe) 3 ml IVFLUSH QSHIFT [facility] Last Admin: 07/13/24 07:17 Dose: 3 ml Documented By: VINCENT Sodium Chloride (0.9 % Sodium Chloride Flush 10 Ml Syringe) 5 ml IVFLUSH TID [facility] Last Admin: 07/13/24 12:55 Dose: 5 ml Documented By: VINCENT Labs 07/11/24 04:04 07/13/24 04:24 Labs: Laboratory Results - last 24 hr 07/13/24 04:24 Estim Creat Clear Calc 75.9 Estimated GFR > 60 Microbiology Microbiology Results: Microbiology 07/10/24 17:52 Blood Culture - Preliminary Blood - Venous No growth after 48 hours. 07/10/24 17:49 Blood Culture - Preliminary Blood - Venous No growth after 48 hours. Assessment and Plan (1) Osteomyelitis: Status: Acute Plan 58-year-old male with pertinent history of rheumatoid arthritis, hypertension, hypothyroidism who presents to the emergency department for concerns of foot infection. #. 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 WBC normalized, ESR 19, CRP 1.70 , follow vanco trough and renal function Seen by wound nurse she recommends dura fiber Ag and dry gauze dressing change every 3 days and offloading boots Outpatient follow-up at wound clinic recommend to call for appointment at time of discharge at [phone] Single-lumen PASV PICC line placed, continue sodium chloride t.i.d. flushes Likely discharge home with home infusion on IV vancomycin 1500 mg daily end date August 22 #. Rheumatoid arthritis: Hold methotrexate and Humira due to acute infection , hold Motrin. #. Hypothyroidism: On Synthroid DVT prophylaxis: Lovenox Full code Patient requires continued inpatient hospitalization for IV antibiotics (as above), which is not possible in a lesser acute setting, and safe disposition home. Quality Stroke Does the patient have a stroke diagnosis?: No VTE Prior VTE?: No VTE Risk Level:: Medical - moderate - high VTE Device Contraindication: Treatment Not Indicated VTE Drug Contraindication: N/A - Med Ordered
--- NOTE | 2024-07-13 14:50 | MHC.CM.PN ---
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
[2024-07-13 15:32] VITALS: BP 134/64; PULSE 70; RESP 20; TEMP 36.2; O2SAT 100
[2024-07-13] MEDS: vancomycin HCL 1,500 MG in 0.9 % Sodium Chloride 500 ML 333.33 MG IV (18:02)
[2024-07-13 19:09] VITALS: BP 109/57; PULSE 81; RESP 20; TEMP 36; O2SAT 99
[2024-07-14 03:35] VITALS: BP 98/54; PULSE 67; RESP 16; TEMP 36; O2SAT 98
[2024-07-14] MEDS: Levothyroxine Sodium 112 MCG TABLET PO (05:26)
[2024-07-14 06:58] LABS: Creatinine Clr Calc Pharmacy 76.7; Estimated Glomerular Filt Rate > 60
[2024-07-14 07:18] VITALS: BP 110/58; PULSE 65; RESP 16; TEMP 36.9; O2SAT 98
[2024-07-14] MEDS: Enoxaparin Sodium 40 MG/0.4 ML SYRINGE SUBCUT (07:18)
[2024-07-14] MEDS: Multivitamin TABLET 1 TAB PO (07:18)
[2024-07-14] MEDS: Folic Acid 1 MG TABLET PO (07:18)
[2024-07-14] MEDS: Aspirin Enteric Coated 81 MG TABLET.DR PO (07:18)
[2024-07-14] MEDS: 0.9 % Sodium Chloride Flush 3 ML SYRINGE IVFLUSH ×2 (07:20→17:22)
--- NOTE | 2024-07-14 10:23 | P.DS_ITS ---
DS: Providers Provider Date of Service: 07/14/24 Date of admission: 07/11/24 00:06 Date of discharge: 07/14/24 Primary care physician: Jarrell Dawn MD Consults: 07/11/24 07:42 Consult to Infectious Diseases Routine Consulting Provider: [facility] Reason for consultation: osteo left 2nd toe Has provider been notified: No 07/11/24 08:39 Consult to Wound Care Routine Reason for consultation: left 2nd toe cellulitis Attending physician on discharge: Americo Mayo Discharging clinician: Heather Kang DS: Diagnosis Discharge Diagnosis (1) Osteomyelitis: Status: Acute DS: Summary Hospital Course Hospital Course: From H&P on the day of admission This is a 58-year-old male with pertinent history of rheumatoid arthritis, hypertension, hypothyroidism who presents to the emergency department for concerns of foot infection. Patient states he lost his toenail 3 weeks ago. Over the last few days he noticed that his left 2nd toe has been red and painful. Pain is worse with ambulation. Also noticed that it was swollen and the swelling had spread to the foot. It is foul-smelling with purulent drainage. The infection has been progressive. Patient did not try oral antibiotics for it. He tried hydrogen peroxide but no improvement in symptoms. Admits associated chills but no documented fever. No chest pain, palpitations, shortness of breath, abdominal pain, changes in urinary or bowel habits. In the emergency department, venous duplex left lower extremity negative. No evidence of osteomyelitis on x-ray. Patient was given IV antibiotics and CT ordered Acute left 2nd toe and foot purulent cellulitis: Redness, swelling, and pain improving. On IV vancomycin started on 07/11 due to extensive cellulitis/osteo. 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 Seen by wound nurse she recommends dura fiber Ag and dry gauze dressing change every 3 days and offloading boots, Outpatient follow-up at wound clinic recommend to call for appointment at time of discharge at [phone]. Single- lumen PASV PICC line placed, continue sodium chloride t.i.d. flushes. Plan for discharge home with home infusion on IV vancomycin 1500 mg daily end date August 22. Recommend weekly CBC, BMP and vano levels. Time Attestation Discharge Coordination Time (in mins): 36 Quality: Safe Use of Opioids Does Pt have an Active Cancer Diagnosis on the Problem List?: No Quality: Stroke Does the patient have a stroke diagnosis?: No Physical Exam Vital Signs: Vital Signs: Last Vital Signs Temp 98.5 F 07/14/24 07:18 Pulse 65 07/14/24 07:18 Resp 16 07/14/24 07:18 BP 110/58 L 07/14/24 07:18 Pulse Ox 98 07/14/24 07:18 O2 Del Method Room Air 07/14/24 07:18 BMI result Body Mass Index 22.6 Const: General: cooperative, comfortable, no acute distress, alert and awake Nutritional Appearance: average body habitus Orientation/consciousness: patient oriented x3 Resp: Effort & Inspection: normal respiratory effort, able to speak in complete sentences, no respiratory distress and no use of accessory muscles Cardio: Rate: regular rate Neuro: General: patient oriented x3 and moves all extremities DS: Data Data Completed and Pending Labs on day of discharge: Laboratory Results - last 24 hr 07/14/24 05:50 Creatinine 0.89 Estim Creat Clear Calc 76.7 Estimated GFR > 60 Preliminary micro results at discharge 07/10/24 17:52 Blood Culture - Preliminary Blood - Venous No growth after 48 hours. 07/10/24 17:49 Blood Culture - Preliminary Blood - Venous No growth after 48 hours. Discharge Plan Discharge Anticipated Discharge Date/Time: 07/14/24 10:28 Patient Disposition: Home Health Service Discharge Diagnosis: Left 2nd toe osteomyelitis/cellulitis Referrals: Keaton Briones MD [Physician] - 1 Week Discharge Medications: Continued multivitamin Tablet 1 tab PO DAILY folic acid 1 mg tablet 1 tab PO DAILY levothyroxine 112 mcg tablet 1 tab PO DAILY@0600 aspirin [Adult Low Dose Aspirin] 81 mg tablet,delayed release (DR/EC) 81 mg PO DAILY Qty: 30 0RF ciclopirox 8 % solution topical BEDTIME melatonin 3 mg Capsule 3 mg PO BEDTIME PRN (Reason: Insomnia) Held ibuprofen 800 mg tablet 800 mg PO Q8H PRN (Reason: pain) Hold Instructions: hold while taking vancomycin Discontinued methotrexate sodium 2.5 mg tablet 9 tab PO SA Humira(CF) Pen 40 mg/0.4 mL pen injector kit 40 mg subcut Q2W Diet: Advance to usual diet Activity on Discharge: As tolerated Stand Alone Forms: Patient Portal Discharge page Print Language: Kinyarwanda Activity Restrictions/Additional Instructions: Topical Wound Care Recommendations: 1. Left 2nd Toe - Cleanse with NS moist gauze or with routine showering (Soap and water). Pat dry. Apply cut to size Durafiber AG, cover completely with dry gauze dressing. Change every 3 days and PRN for loose dressing. Should consider off loading pressure from shoes. Keep follow up appointment with Podiatry as scheduled. Recommend follow up out patient Wound Clinic at [address] [place] [id number] and to call for an appointment at time of discharge. [phone].? Care Plan Goals: Left 2nd toe osteomyelitis continue IV vancomycin total 6 weeks end date August 22 Health Concerns: Rheumatoid arthritis hold Humira and methotrexate while receiving antibiotics Plan of Treatment: Follow-up with primary care physician call for appointment Follow-up with Wound Care Clinic call for appointment. Call to schedule follow-up appointment at the Wound Care Clinic as above Assessment: As above
--- NOTE | 2024-07-14 10:29 | W.MHC.F2F ---
Service Date Service Date: 07/14/24 Encounter Date of encounter: 07/14/24 Reasons for Services Signs and symptoms assessed: needs assisted for wound care, IV antibiotic administration Reason for assisted: wound care (Left 2nd Toe - Cleanse with NS moist gauze or with routine showering (Soap and water). Pat dry. Apply cut to size Durafiber AG, cover completely with dry gauze dressing. Change every 3 days and PRN for loose dressing. Should consider off loading pressure from shoes. ) Overseeing Care: Jarrell Dawn Homebound: Leaving the home is medically contraindicated at this time without the asist of a device and/or another person due th the listed conditions above and below. Reason homebound: weakness related to hospital stay Certification: Based on the above findings, I certify that this patient is confined to the home and needs intermittent assisted care, physical therapy and/or speech therapy, or continues to need occupational therapy. The patient is under my care, and I have initiated the establishment of the plan of care. The patient will be followed by a physician who will periodically review the plan of care. Time Spent With Patient Time: Total time managing care of this patient today ____ minutes.
--- NOTE | 2024-07-14 11:58 | MHC.CM.PN ---
Addendum entered by Sade Ventura 07/15/24 10:50: UPDATES SENT TO [facility] WHO HAS CONFIRMED RECEIPT, PT SHOULD GET HIS MEDS/SUPPLIES TODAY Addendum entered by Sade Ventura 07/15/24 09:44: VANCO TROUGH DRAWN ON 07/14, PT DISCHARGED AFTER RESULTS RECEIVED [facility] NOTIFIED OF LAB RESULTS Addendum entered by Sade Ventura 07/14/24 12:04: [facility] RN COMPLETED TEACH WITH PT AND REPORTS NO CONCERNS ABOUT HIS ABILITY TO MANAGE MEDS AT HOME [facility] LIAISON THEN CALLED CM AGAIN AND STATED BECAUSE HIS RANDOM TROUGH WAS 20, THE PHARMACIST WOULD NOT FILL THE SCRIPT SHE REQUESTED A TROUGH BE DRAWN THIS EVENING WHEN PT GETS HIS MED Original Note: CM MET WITH PT TO DISCUSS DC PLANNING PT IS AWARE [facility] RN WILL BE IN THIS MORNING FOR A TEACHING HE REPORTS HE PLANS TO RETURN TO WORK TOMORROW AND HAS NO CONCERNS ABOUT HE AND HIS WIFES ABILITY TO MANAGE MEDICATIONS HE IS AWARE HE WOULD NOT BE ABLE TO HAVE A VNA IF HE RETURNS TO WORK, HOWEVER [facility] CAN PROVIDE NURSING FOR LABS AND PICC DRESSING
[2024-07-14] MEDS: 0.9 % Sodium Chloride Flush 10 ML SYRINGE 5 ML IVFLUSH ×2 (13:23→16:45)
[2024-07-14 15:04] VITALS: BP 119/65; PULSE 76; RESP 18; TEMP 36.2
--- NOTE | 2024-07-14 16:01 | P.PNIM_ITS ---
Subjective Subjective Date of Service: 07/14/24 Physical Exam 2 Vital Signs: Vital Signs: Last Vital Signs Temp 97.2 F 07/14/24 15:04 Pulse 76 07/14/24 15:04 Resp 18 07/14/24 15:04 BP 119/65 07/14/24 15:04 Pulse Ox 98 07/14/24 07:18 O2 Del Method Room Air 07/14/24 07:18 BMI result Body Mass Index 22.6 Objective Data Active Medications Acetaminophen (Acetaminophen 325 Mg Tablet) 650 mg PO Q6H PRN PRN Reason: Pain, Mild (Pain Scale 1-3), fever or headache Aspirin (Aspirin Enteric Coated 81 Mg Tablet.Dr) 81 mg PO DAILY [facility] Last Admin: 07/14/24 07:18 Dose: 81 mg Documented By: CLAUDETTE Calcium Carbonate (Calcium Carbonate 750 Mg Tab.Chew) 750 mg PO Q4H PRN PRN Reason: Heartburn Enoxaparin Sodium (Enoxaparin Sodium 40 Mg/0.4 Ml Syringe) 40 mg SUBCUT Q24H [facility] Last Admin: 07/14/24 07:18 Dose: 40 mg Documented By: CLAUDETTE Folic Acid (Folic Acid 1 Mg Tablet) 1 mg PO DAILY [facility] Last Admin: 07/14/24 07:18 Dose: 1 mg Documented By: CLAUDETTE Vancomycin HCl 1,500 mg/ (Sodium Chloride) 500 mls @ 333.333 mls/hr IV Q24H [facility] Last Infusion: 07/13/24 19:38 Dose: Infused Documented By: SKYE Levothyroxine Sodium (Levothyroxine Sodium 112 Mcg Tablet) 112 mcg PO DAILY@0600 [facility] Last Admin: 07/14/24 05:26 Dose: 112 mcg Documented By: SKYE Magnesium Hydroxide (Milk Of Magnesia 30 Ml Oral.Susp) 30 ml PO DAILY PRN PRN Reason: Constipation Melatonin (Melatonin 3 Mg Tablet) 6 mg PO BEDTIME PRN PRN Reason: Insomnia Multivitamins/Vitamin C (Multivitamin Tablet) 1 tab PO DAILY [facility] Last Admin: 07/14/24 07:18 Dose: 1 tab Documented By: CLAUDETTE Ondansetron HCl (Ondansetron Hcl 4 Mg/2 Ml Vial) 4 mg IVPUSH Q8H PRN PRN Reason: Nausea and Vomiting Pharmacy Consult (Consult Rx Vancomycin Dosing) 1 each MISCELLANE DAILY PRN PRN Reason: Consult order Sodium Chloride (0.9 % Sodium Chloride Flush 3 Ml Syringe) 3 ml IVFLUSH QSHIFT [facility] Last Admin: 07/14/24 07:20 Dose: 3 ml Documented By: CLAUDETTE Sodium Chloride (0.9 % Sodium Chloride Flush 10 Ml Syringe) 5 ml IVFLUSH TID [facility] Last Admin: 07/14/24 13:23 Dose: 5 ml Documented By: CLAUDETTE Labs 07/11/24 04:04 07/14/24 05:50 Labs: Laboratory Results - last 24 hr 07/14/24 07/14/24 05:50 10:35 Estim Creat Clear Calc 76.7 Estimated GFR > 60 Random Vancomycin 20.0 Quality Stroke Does the patient have a stroke diagnosis?: No VTE Prior VTE?: No VTE Risk Level:: Medical - moderate - high VTE Device Contraindication: Treatment Not Indicated VTE Drug Contraindication: N/A - Med Ordered
[2024-07-14] MEDS: vancomycin HCL 1,500 MG in 0.9 % Sodium Chloride 500 ML 333.33 MG IV (17:18)
--- NOTE | 2024-07-15 10:42 | PM.DS ---
DS: Providers Provider Date of Service: 07/14/24 Date of admission: 07/11/24 00:06 Date of discharge: 07/14/24 Primary care physician: Jarrell Dawn MD Consults: 07/11/24 07:42 Consult to Infectious Diseases Routine Consulting Provider: [facility] [place] [facility] Reason for consultation: osteo left 2nd toe Has provider been notified: No 07/11/24 08:39 Consult to Wound Care Routine Reason for consultation: left 2nd toe cellulitis Attending physician on discharge: Americo Mayo Discharging clinician: Heather Kang DS: Diagnosis Discharge Diagnosis (1) Osteomyelitis: Status: Acute DS: Summary Hospital Course Hospital Course: From H&P on the day of admission This is a 58-year-old male with pertinent history of rheumatoid arthritis, hypertension, hypothyroidism who presents to the emergency department for concerns of foot infection. Patient states he lost his toenail 3 weeks ago. Over the last few days he noticed that his left 2nd toe has been red and painful. Pain is worse with ambulation. Also noticed that it was swollen and the swelling had spread to the foot. It is foul-smelling with purulent drainage. The infection has been progressive. Patient did not try oral antibiotics for it. He tried hydrogen peroxide but no improvement in symptoms. Admits associated chills but no documented fever. No chest pain, palpitations, shortness of breath, abdominal pain, changes in urinary or bowel habits. In the emergency department, venous duplex left lower extremity negative. No evidence of osteomyelitis on x-ray. Patient was given IV antibiotics and CT ordered Acute left 2nd toe and foot purulent cellulitis: Redness, swelling, and pain improving. On IV vancomycin started on 07/11 due to extensive cellulitis/osteo. 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 Seen by wound nurse she recommends dura fiber Ag and dry gauze dressing change every 3 days and offloading boots, Outpatient follow-up at wound clinic recommend to call for appointment at time of discharge at [phone]. Single-lumen PASV PICC line placed, continue sodium chloride t.i.d. flushes. Plan for discharge home with home infusion on IV vancomycin 1500 mg daily end date August 22. Recommend weekly CBC, BMP and vano levels. Time Attestation Discharge Coordination Time (in mins): 35 Quality: Safe Use of Opioids Does Pt have an Active Cancer Diagnosis on the Problem List?: No Quality: Stroke Does the patient have a stroke diagnosis?: No Physical Exam Vital Signs: Vital Signs: Last Vital Signs Temp 97.2 F 07/14/24 15:04 Pulse 76 07/14/24 15:04 Resp 18 07/14/24 15:04 BP 119/65 07/14/24 15:04 Pulse Ox 98 07/14/24 07:18 O2 Del Method Room Air 07/14/24 07:18 BMI result Body Mass Index 22.6 Const: General: cooperative, comfortable, alert and awake Nutritional Appearance: average body habitus Orientation/consciousness: patient oriented x3 Resp: Effort & Inspection: normal respiratory effort, able to speak in complete sentences, no respiratory distress and no use of accessory muscles Cardio: Rate: regular rate GI: Inspection: No distended Palpation (GI): Soft to palpation and nontender Neuro: General: patient oriented x3, moves all extremities and CN's II-XI intact bilaterally DS: Data Data Completed and Pending Labs on day of discharge: Laboratory Results - last 24 hr 07/14/24 07/14/24 10:35 16:16 Vancomycin Trough 16.0 Random Vancomycin 20.0 Preliminary micro results at discharge 07/10/24 17:52 Blood Culture - Preliminary Blood - Venous No growth after 48 hours. 07/10/24 17:49 Blood Culture - Preliminary Blood - Venous No growth after 48 hours. Discharge Plan Discharge Anticipated Discharge Date/Time: 07/14/24 10:28 Patient Disposition: Home Health Service Discharge Diagnosis: Left 2nd toe osteomyelitis/cellulitis Referrals: Keaton Briones MD [Physician] - 1 Week Discharge Medications: Continued multivitamin Tablet 1 tab PO DAILY folic acid 1 mg tablet 1 tab PO DAILY levothyroxine 112 mcg tablet 1 tab PO DAILY@0600 aspirin [Adult Low Dose Aspirin] 81 mg tablet,delayed release (DR/EC) 81 mg PO DAILY Qty: 30 0RF ciclopirox 8 % solution topical BEDTIME melatonin 3 mg Capsule 3 mg PO BEDTIME PRN (Reason: Insomnia) Held ibuprofen 800 mg tablet 800 mg PO Q8H PRN (Reason: pain) Hold Instructions: hold while taking vancomycin Discontinued methotrexate sodium 2.5 mg tablet 9 tab PO SA Humira(CF) Pen 40 mg/0.4 mL pen injector kit 40 mg subcut Q2W Discharge Orders: Discharge Order (Routine); Ordered 07/14/24 Ordered By: Heather Kang Diet: Advance to usual diet Activity on Discharge: As tolerated Stand Alone Forms: Patient Portal Discharge page, Work/School Release Print Language: Malaysian Activity Restrictions/Additional Instructions: Topical Wound Care Recommendations: 1. Left 2nd Toe - Cleanse with NS moist gauze or with routine showering (Soap and water). Pat dry. Apply cut to size Durafiber AG, cover completely with dry gauze dressing. Change every 3 days and PRN for loose dressing. Should consider off loading pressure from shoes. Keep follow up appointment with Podiatry as scheduled. Recommend follow up out patient Wound Clinic at [address] [place] [phone] and to call for an appointment at time of discharge. [phone].? Care Plan Goals: Left 2nd toe osteomyelitis continue IV vancomycin total 6 weeks end date August 22 Health Concerns: Rheumatoid arthritis hold Humira and methotrexate while receiving antibiotics Plan of Treatment: Follow-up with primary care physician call for appointment Follow-up with Wound Care Clinic call for appointment. Call to schedule follow-up appointment at the Wound Care Clinic as above Assessment: As above Discharge Date/Time: 07/14/24 19:11
== END 2024-07-14 19:11 | disposition home health service (06) | DRG 344 ==
LOC: HO.ED 23:41 → HO.EDOVER 07-11 00:23 → HO.S3 07-11 07:33
PROVIDERS: Nurse Practitioner Family; Admitting Provider Student in an Organized Health Care Education/Training Program; Emergency Provider Internal Medicine; PCP Internal Medicine; Visit Provider Physician Assistant Medical
DX: M86.9 Osteomyelitis, unspecified (principal); L03.116 Cellulitis of left lower limb; M84.475A Pathological fracture, left foot, initial encounter for fracture; E03.9 Hypothyroidism, unspecified; I10 Essential (primary) hypertension; M06.9 Rheumatoid arthritis, unspecified; Z79.82 Long term (current) use of aspirin; Z79.890 Hormone replacement therapy; Z79.899 Other long term (current) drug therapy
CPT/HCPCS: 36415; 36573; 73630; 73701; 80048; 80076; 80202; 82565; 83605; 85025; 85652; 86140; 87040; 93971; 99285; C1751; J1650; J2543; J3370; J3371; Q9967

== ENCOUNTER → 2024-07-10 17:20 | Outpatient (BNV) | payer OTHER, SELFPAY | PROVIDERS: Emergency Provider Internal Medicine; Visit Provider Student in an Organized Health Care Education/Training Program | DX: L03.116 Cellulitis of left lower limb (principal) | CPT/HCPCS: 99222; 99232; 99239; 99499; G0180 ==

== ENCOUNTER → 2024-07-11 00:06 | Outpatient (BNV) | payer OTHER, SELFPAY | PROVIDERS: Admitting Provider Student in an Organized Health Care Education/Training Program; Emergency Provider Internal Medicine; PCP Hospitalist; Visit Provider Internal Medicine | DX: M06.9 Rheumatoid arthritis, unspecified (principal); L03.116 Cellulitis of left lower limb; M84.475A Pathological fracture, left foot, initial encounter for fracture; M86.9 Osteomyelitis, unspecified | CPT/HCPCS: 99222 ==

== ENCOUNTER 2024-08-22 15:41 | Outpatient (AMB) | payer OTHER, SELFPAY ==
--- NOTE | 2024-08-22 15:34 | A.OFFVIS_ITS ---
Vital Signs 3 08/22/24 15:46 Weight 145 lb Temp 97.8 F Temp Source Oral Intake Visit Reasons: [facility] reff end abx 08/20 cellulitis foot Allergies No Known Allergies Allergy (Verified 08/22/24 15:47) HPI HPI [facility] reff end abx 08/20 cellulitis foot: Details: His foot is stable. [facility] Medical History Osteomyelitis Hand lesion Hypothyroidism Rheumatoid arthritis Surgical History No pertinent past surgical history Family History Other No family history of coronary artery disease Social History Household Members: Spouse Housing: Other Housing Other:: Mobile home. Do you presently have visiting nurse or other home services: No Alcohol intake: current Alcohol intake frequency: does not drink Patient Tobacco Use Status: Never used Tobacco Second Hand Smoke Exposure: No service: No Current occupational status: employed Review of Systems Const All systems reviewed & are unremarkable except as noted in HPI and below Physical Exam Vital Signs: Last Vital Signs Temp 97.8 F 08/22/24 15:46 Const Other: General: cooperative Orientation/consciousness: patient oriented x3 HEENT Head: Yes normal to inspection Mouth: Normal oral and palatal mucosa present Eyes General: appearance normal, both eyes and all related structures Pupils: Equal, round and reactive pupils present Resp Effort & Inspection: normal respiratory effort Cardio Rate: regular rate Rhythm: regular rhythm GI Palpation (GI): Soft to palpation and nontender General: Yes no CVA tenderness Back/Spine/Pelvis Back: no CVA tenderness Skin General skin exam: no rashes or lesions noted Neuro General: patient oriented x3 Cranial nerves: Yes CN's II-XII intact bilaterally and Yes Equal, round and reactive pupils present Extrem General: Yes normal to inspection Psych Appearance: grossly normal Assessment & Plan Assessment & Plan (1) Cellulitis of foot, left: Comment: He has improvement. Code(s): L03.116 - Cellulitis of left lower limb Category: Medical Plan: Finish antibiotics. (2) Rheumatoid arthritis: Code(s): M06.9 - Rheumatoid arthritis, unspecified Category: Medical Plan: n/a (3) Osteomyelitis: Code(s): M86.9 - Osteomyelitis, unspecified Category: Medical Plan: n/a Orders: Orders 2 IR cvc remove any age 1208/22/24 L03.116 - Cellulitis of left lower limb, M06.9 - Rheumatoid arthritis, unspecified, M86.9 - Osteomyelitis, unspecified Medications: New 2 doxycycline hyclate 100 mg PO BID 60 caps 0RF 30 days Discontinued 2 aspirin Discontinued Reason: Patient no longer taking 81 mg PO DAILY 30 tabs 0RF Coding Level of Care Code Est Pt Level 3 (98907) Diagnoses Cellulitis of foot, left L03.116 Rheumatoid arthritis M06.9 Osteomyelitis M86.9
[2024-08-22 15:46] VITALS: TEMP 36.6
== END 2024-08-22 16:08 | disposition home or self-care (01) ==
PROVIDERS: PCP Internal Medicine; Visit Provider Internal Medicine
DX: L03.116 Cellulitis of left lower limb (principal); M06.9 Rheumatoid arthritis, unspecified; M86.9 Osteomyelitis, unspecified
CPT/HCPCS: 99213

== ENCOUNTER → 2024-08-22 15:41 | Outpatient (BNVA) | payer OTHER, SELFPAY | PROVIDERS: PCP Internal Medicine; Visit Provider Internal Medicine | DX: L03.116 Cellulitis of left lower limb (principal); M06.9 Rheumatoid arthritis, unspecified; M86.9 Osteomyelitis, unspecified | CPT/HCPCS: 99212 ==

== ENCOUNTER 2024-09-25 13:06 | Emergency (ER) | payer OTHER, SELFPAY ==
[2024-09-25 13:33] VITALS: BP 113/59; PULSE 89; RESP 16; TEMP 37.2; O2SAT 99; BMI 22.6
--- NOTE | 2024-09-25 13:33 | ED_ITS ---
HPI - General Adult General Chief complaint: General Medical Stated complaint: Bertrand bite on fingers Time Seen by Provider: 09/25/24 15:08 Source: patient Mode of arrival: ambulatory Limitations: no limitations History of Present Illness ED Provider: rissa crawley np HPI narrative: Patient is a 59-year-old male who presents to the emergency department for evaluation of concern for bertrand bite to the left hand distal tips of the 2nd through 4th digits 3rd and 4th being the worse. 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 States he has been following with urgent care; [facility] on [facility] in [place] but was advised today to come to the emergency department for further evaluation. Has intermittent pain. Initial onset was 09/03/2024, he was initially prescribed a course of prednisone and naproxen, he re-presented to the urgent care on 09/18/2023 advised to continue conservative treatment. Related Data Home Medications ?Medication ?Instructions ?Recorded ?Confirmed folic acid 1 mg tablet 1 tab PO DAILY 04/24/22 07/11/24 levothyroxine 112 mcg tablet 1 tab PO DAILY@0600 04/24/22 07/11/24 multivitamin 1 tab PO DAILY 04/24/22 07/11/24 ibuprofen 800 mg tablet 800 mg PO Q8H PRN pain 07/11/24 07/11/24 Previous Rx's ?Medication ?Instructions ?Recorded doxycycline hyclate 100 mg capsule 100 mg PO BID 30 days #60 caps 08/22/24 Allergies Allergy/AdvReac Type Severity Reaction Status Date / Time No Known Allergies Allergy Verified 09/25/24 13:33 Review of Systems 2 Review of Systems: Yes all other systems are reviewed and are negative PMFSH Past Medical History Attestation statement: The following information was validated with the patient. Source: old records reviewed Medical History Osteomyelitis Hand lesion Hypothyroidism Rheumatoid arthritis Surgical History No pertinent past surgical history Family History Family History Other No family history of coronary artery disease Social History Social History Household Members: Spouse Housing: Other Housing Other:: Mobile home. Do you presently have visiting nurse or other home services: No Alcohol intake: current Alcohol intake frequency: does not drink Patient Tobacco Use Status: Never used Tobacco Second Hand Smoke Exposure: No Advance Directives: Yes Advance Directives on File: Yes Advance Directives Date on File: 07/15/24 Do you have a plan to hurt others: No Plan service: No Current occupational status: employed Physical Exam ED Vital Signs: Vital Signs - 24 hr 09/25/24 13:33 09/25/24 15:58 Temperature 99.0 F 98.6 F Pulse Rate 89 88 Respiratory Rate 16 16 Blood Pressure 113/59 L 114/60 Pulse Oximetry 99 99 Oxygen Delivery Method Room Air Room Air BMI result Body Mass Index 22.6 Appearance: Alert.?Oriented to person, place and time. No acute distress.?Normal affect. CVS: Heart sounds normal. Normal heart rate and rhythm.? Pulses normal.?? Respiratory: No respiratory distress.? Lung sounds clear to auscultation bilaterally?? Abdomen: Soft and non-tender. Normoactive bowel sounds. Skin: Skin warm and dry.? Normal skin color.? Extremities: No lower extremity edema.?Distal tips of bilateral hands/ digits are cold and discolored. surrounding skin is blanchable, mild excoriation of the left fifth digit surrounding the nail bed. 2+ radial/ ulnar pulse bilaterally. Neuro: Moves all extremities spontaneously. Sensation intact bilaterally. CN II- XII intact. No focal neuro deficits. Ambulates with normal steady gait. Course Course Course Narrative: This is an RME performed by Rissa Crawley CNP: Additional HPI, ROS, PE not included below will be deferred to primary provider. Patient is a 59-year-old male who presents to the emergency department for evaluation of concern for bertrand bite to the left hand distal tips of the 2nd through 4th digits 3rd and 4th being the worse. 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 States he has been following with urgent care; [facility] on [facility] in [place] but was advised today to come to the emergency department for further evaluation. Has intermittent pain. Initial onset was 09/03/2024, he was initially prescribed a course of prednisone and naproxen, he re-presented to the urgent care on 09/18/2023 advised to continue conservative treatment. Distal tips of right hands are cold and discolored as well. surrounding skin is blanchable, mild excoriation of the left fifth digit surrounding the nail bed. 2+ radial pulse. Patient evaluated by attending Dr. Palma as well who recommends consulting with Dr. Springer Medical Decision Making Medical Decision Making MDM Narrative: Patient is a 59-year-old male with past medical history of rheumatoid arthritis, hypertension, osteomyelitis of the left foot last year after nail avulsion who presents for evaluation of concern for frostbite to the distal tips of the bilateral hands as per HPI with the initial onset 09/03/2024. Pertinent physical exam findings as per PE portion of this note. Patient was evaluated by myself as well as my attending physician Dr. Palma. Patient's account is that things are overall improving he just thought that things should be resolved by now and states that he was advised by the urgent Care to come to the emergency department for evaluation. On evaluation extremities are neurovascularly intact distally he has strong distal radius pulses. The history is a bit concerning as he was not outdoors for prolonged time and he did have his hands gloved. Per my attending Dr. Palma, not exactly clear if this is in fact frostbite, given its duration and current appearance, he recommends consult with vascular Dr. Springer, whom i did reach out to and he recommends outpatient follow-up hand specialist Dr. Ace. Patient is not a cigarette smoker nor has he been in the past, possibility for Buergers disease, Raynauds patient does admit that his hands are typically chronically cold which he had previously attributed to his rheumatoid arthritis. I saw this patient with Richelle the nurse practitioner. Patient has a history of rheumatoid arthritis. Question had an episode where the fingers were exposed to the cold. Patient's thought maybe it was secondary to frostbite. However the symptom has not improved dramatically over the last 2 weeks. Was seen at urgent care now came to the ED for help. Patient has good capillary refill. Seems to have good circulation. Question denies any history of smoking. Patient case was discussed with vascular. Will be referred to hand. Currently in stable condition. Differential Diagnosis Differential Diagnoses: The differential diagnosis associated with the presentation includes (Does not appear consistent of VTE, arterial occlusion given neurovascularly intact distally, and strong distal pulses. Full range of motion to the digits.) Consult Healthcare Provider Management of the patient was discussed with: Hvac Refrigeration Technician (See narrative above) External Record Review External record reviewed: Outpatient record Prescription Management I considered prescription management with: Pain Medication (Acetaminophen/NSAID) Chronic Conditions Patient?s care impacted by: Other (See narrative above) Discharge Plan Discharge Clinical Impression: Frostbite of both hands Patient Disposition: Home, Self-Care Instructions: Frostbite (ED) Additional Instructions: As discussed, please contact the office with the hand specialist tomorrow to arrange for a follow-up visit. Prescriptions: No Action multivitamin Tablet 1 tab PO DAILY folic acid 1 mg tablet 1 tab PO DAILY levothyroxine 112 mcg tablet 1 tab PO DAILY@0600 ibuprofen 800 mg tablet 800 mg PO Q8H PRN (Reason: pain) doxycycline hyclate 100 mg capsule 100 mg PO BID 30 Days Qty: 60 0RF Referrals: Sol Ace MD [Physician] - (frostbite? bilateral hands) Jarrell Dawn MD [Primary Care Provider] - Interventions: ED Discharge Assessment Last Done: 09/25/24 15:58 Discharge Date/Time: 09/25/24 15:59 Print Language: Polish
[2024-09-25 15:58] VITALS: BP 114/60; PULSE 88; RESP 16; TEMP 37; O2SAT 99
== END 2024-09-25 15:59 | disposition home or self-care (01) ==
PROVIDERS: Emergency Provider Emergency Medicine Emergency Medical Services; PCP Internal Medicine
DX: T33.532A Superficial frostbite of left finger(s), initial encounter (principal); X31.XXXA Exposure to excessive natural cold, initial encounter; Y93.9 Activity, unspecified; Y92.9 Unspecified place or not applicable; Y99.8 Other external cause status; Z79.899 Other long term (current) drug therapy
CPT/HCPCS: 99282

== ENCOUNTER 2024-09-27 13:11 | Outpatient (REF) | payer OTHER, SELFPAY ==
--- NOTE | ~2024-09-27 | XR_ITS ---
EXAMINATION: XR HAND 3 OR MORE VIEWS RIGHT, XR HAND 3 OR MORE VIEWS LEFT HISTORY: M79.641 - Pain in right hand COMPARISON: Comparison is made with the prior examination of the left hand dated 12/27/2023. FINDINGS: Six views of the bilateral hands are submitted. The bones are osteopenic. There is no fracture or dislocation. On the right, multiple erosions involving the MCP joint of the thumb as well as the 2nd and 3rd metacarpal heads on the carpal bones. There is associated joint space narrowing. On the left, there are erosions involving the bases of the 1st and 2nd metacarpals, the carpal bones, and the DIP joints of the index and middle fingers. There is moderate joint space narrowing involving the DIP joints of the index and middle fingers. The soft tissues are unremarkable. 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 Electronically signed by: Elder Gonzalez MD 09/29/2024 12:43 PM FERN
--- NOTE | ~2024-09-27 | XR_ITS ---
EXAMINATION: XR HAND 3 OR MORE VIEWS RIGHT, XR HAND 3 OR MORE VIEWS LEFT HISTORY: M79.641 - Pain in right hand COMPARISON: Comparison is made with the prior examination of the left hand dated 12/27/2023. FINDINGS: Six views of the bilateral hands are submitted. The bones are osteopenic. There is no fracture or dislocation. On the right, multiple erosions involving the MCP joint of the thumb as well as the 2nd and 3rd metacarpal heads on the carpal bones. There is associated joint space narrowing. On the left, there are erosions involving the bases of the 1st and 2nd metacarpals, the carpal bones, and the DIP joints of the index and middle fingers. There is moderate joint space narrowing involving the DIP joints of the index and middle fingers. The soft tissues are unremarkable. 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 Electronically signed by: Elder Gonzalez MD 09/29/2024 12:43 PM [facility]
== END 2024-09-27 13:12 | disposition home or self-care (01) ==
LOC: HO.HOSX 13:11
PROVIDERS: Visit Provider Orthopaedic Surgery
DX: M79.641 Pain in right hand (principal); M79.642 Pain in left hand; T33.521A Superficial frostbite of right hand, initial encounter
CPT/HCPCS: 73130; 99202

== ENCOUNTER 2024-09-27 14:06 | Outpatient (AMB) | payer OTHER, SELFPAY ==
--- NOTE | 2024-09-27 14:12 | MHC.OFFVIS ---
Intake Visit Reasons: N/P B/L hand bertrand bite s/p ED 09/25/24 Intake Note: Jules is a 59 year old right hand dominant male who presents today for a new patient evaluation of bilateral hand multiple fingers bertrand bite. Patient reports about 2.5 weeks prior to his ER visit he was working in a cold garage. He noticed on his way home having throbbing pain. He presented to [facility] and was referred to orthoepedics. Currently his most discomfort is in his left hand pointer finger. Allergies No Known Allergies Allergy (Verified 09/27/24 14:27) HPI HPI N/P B/L hand bertrand bite s/p ED 09/25/24: Details: Jules is a 59 year old right hand dominant man who presents for bilateral hand pain, L>R, S/P possible frostbite injury, DOI: 09/03/24. He was seen by Urgent care for this, and was seen in the ED on 09/25/23, before being referred here. 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 When he returned home he began feeling a throbbing pain in his fingertips. He complains today of pain & weakness in his fingertips. He says this has slightly improved in the last few weeks, but continues to be bothersome. He says some of his fingertips blistered initially, but this has been slowly improving with time and Abx ointment. He says he is still managing a foot infection with PO Abx. he had a PICC line for several weeks, which was removed just prior to developing this infection. He has a Hx of RA, and says his hands are often always cold . He thought this was caused by his arthritis and denies any Dx of Raynaud's. He takes Folic acid & Humira for his RA, but has not been taking Humira since he developed his infection. He has a deformity of some of his fingers due to his arthritis. He denies any numbness or tingling. He denies smoking. 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 [facility] Medical History Osteomyelitis Hand lesion Hypothyroidism Rheumatoid arthritis Surgical History No pertinent past surgical history Family History Other No family history of coronary artery disease Social History Household Members: Spouse Housing: Other Housing Other:: Mobile home. Do you presently have visiting nurse or other home services: No Alcohol intake: current Alcohol intake frequency: does not drink Patient Tobacco Use Status: Never used Tobacco Second Hand Smoke Exposure: No Advance Directives Date on File: 07/15/24 service: No Current occupational status: employed Review of Systems Const All systems reviewed & are unremarkable except as noted in HPI and below Physical Exam Const General: cooperative, healthy appearing and no acute distress Orientation/consciousness: patient oriented x3 HEENT Head: Yes normocephalic and Yes atraumatic Eyes EOM: EOMs intact bilaterally Resp Effort & Inspection: normal respiratory effort and able to speak in complete sentences Cardio Jugular venous distension: no JVD Skin General skin exam: turgor normal Rashes: no rashes Neuro General: patient oriented x3 Extrem Other: Evaluation of Bilateral Upper Extremity: The patient is alert, oriented, and in no acute distress Neuro: Median, Ulnar, Radial nerves motor and sensory intact and sensation is normal to the tips of all digits Vascular: Cap refill brisk ROM: He can make a fist and extend all his digits No locking or catching Hibbs-neck deformities of the left index & middle fingers, passively reducible General: Blueish discoloration to all digits, from the PIP joints distally, L>R The left small finger skin appears somewhat fryable, just distal to the DIP joint, this is an area of a recovering blister He also has an area of a recovering blister to the dorsal ring finger and pad of the index finger, from stage 2 frostbite Radiographs: 3 views of the left hand were taken and viewed by me today in clinic. They show no fractures or dislocations. There is [ ] 3 views of the right hand were taken and viewed by me today in clinic. They show no fractures or dislocations. There is [ ] Psych Appearance: grossly normal Affect: normal affect Attitude: cooperative Assessment & Plan Assessment & Plan (1) Raynaud disease: Code(s): I73.00 - Raynaud's syndrome without gangrene Category: Medical (2) Frostbite of both hands: Code(s): T33.521A - Superficial frostbite of right hand, initial encounter; T33.522A - Superficial frostbite of left hand, initial encounter Category: Medical (3) Rheumatoid arthritis: Code(s): M06.9 - Rheumatoid arthritis, unspecified Category: Medical (4) Immunocompromised state: Code(s): D84.9 - Immunodeficiency, unspecified Category: Medical Plan Assessment & Plan: 1. Left hand cold injury, likely sustaining a 2nd degree frostbite injury Likely complicated by underlying Raynaud's disease Blisters had been present after the injury. 2. Right hand cold injury To the tips of the index, middle, ring, and small fingers Likely secondary to Raynaud's disease 3. Raynaud's disease Affecting bilateral hands I educated him about this condition He has a Hx of rheumatoid arthritis and Raynaud's disease We discussed operative and non operative treatment options and the indications for these. Fortunately, I do not see any indication for operative treatment or amputation at this presentation. I recommend activity modification and being much more careful about keeping his hands and body fixer boarding room cold weather. I recommend he change his gloves to warmer mittens, and do his best to keep his hands warm using whatever gadgets or other warming items he finds necessary He should continue gentle ROM exercises at home I recommend he follow up with his Pallet Stone Inserter when possible to discuss the management of his Raynaud's disease He will follow up in 4 weeks to see how he is doing, sooner prn. Scribed for Sol Ace MD by Harrison Jordan, lpn medical assistant, on 09/27/24 at 2:30 PM, EST. Orders: Orders XR hand RT min 3V 09/27/24 M79.641 - Pain in right hand XR hand LT min 3V 09/27/24 M79.642 - Pain in left hand Coding Level of Care Code New Pt Level 4 (09962) Diagnoses Raynaud disease I73.00 Frostbite of both hands T33.521A; T33.522A Rheumatoid arthritis M06.9 Immunocompromised state D84.9
== END 2024-09-27 14:52 | disposition home or self-care (01) ==
PROVIDERS: PCP Internal Medicine; Visit Provider Orthopaedic Surgery
DX: I73.00 Raynaud's syndrome without gangrene (principal); T33.521A Superficial frostbite of right hand, initial encounter; T33.522A Superficial frostbite of left hand, initial encounter; M06.9 Rheumatoid arthritis, unspecified; D84.9 Immunodeficiency, unspecified
CPT/HCPCS: 99204

== ENCOUNTER → 2024-09-27 14:09 | Outpatient (BNV) | payer OTHER, SELFPAY | PROVIDERS: Visit Provider Radiology Diagnostic Radiology | DX: M85.841 Other specified disorders of bone density and structure, right hand (principal); M85.842 Other specified disorders of bone density and structure, left hand | CPT/HCPCS: 73130 ==

== ENCOUNTER 2025-01-05 03:46 | Emergency (ER) | payer OTHER, SELFPAY ==
--- NOTE | ~2025-01-05 | CT_ITS ---
CLINICAL HISTORY: abd pain, appy? CT abdomen and pelvis with contrast Comparison: None Findings: There is a small pericardial effusion. Chronic appearing airway thickening with early bronchiectasis and subpleural reticular densities. Normal appendix. No bowel obstruction, free air, free fluid, abscess or significant adenopathy. Scattered gas and fluid throughout nondistended small and large bowel. Mild engorgement of the vasa recta. The liver, gallbladder, spleen, adrenal glands and pancreas are unremarkable. Kidneys, ureters and bladder demonstrate no acute process. Moderate atherosclerotic disease noted. No acute osseous finding. Impression: Normal appendix. Findings suggest enteritis. Interstitial lung disease noted at the lung bases. This document has been electronically signed by: Romaine Mustafa MD on 01/05/2025 05:43:28
[2025-01-05 03:48] VITALS: BP 97/66; PULSE 68; RESP 16; TEMP 36.4; BMI 24.1
[2025-01-05 04:07] VITALS: BP 124/69; PULSE 68; RESP 16; TEMP 36.4; O2SAT 99
[2025-01-05 04:07] LABS: Basophils Absolute Auto 0.1 X10*3/uL (0.0-0.2); Basophils Percent Auto 0.6 % (0-2); Eosinophils Absolute Auto 0.2 X10*3/uL (0.0-0.4); Eosinophils Percent Auto 1.8 % (0-4); Hematocrit 32.2 % (42.0-52.0); Hemoglobin 10.6 g/dl (14.0-18.0); Imm Gran Abs Auto 0.04 X10*3/uL (0.00-0.03); Imm Gran Pct Auto 0.3 % (0.0-0.4); Lymphocytes Absolute Auto 3.2 X10*3/uL (1.2-4.9); Lymphocytes Percent Auto 25.3 % (20-40); MANUAL DIFF FLAG NO; Mean Corpuscular HGB Conc 32.9 g/dl (31.0-36.0); Mean Corpuscular Hemoglobin 24.8 pg (27.0-33.0); Mean Corpuscular Volume 75.4 fL (80.0-98.0); Monocytes Absolute Auto 1.2 X10*3/uL (0.1-1.2); Monocytes Percent Auto 9.7 % (2-11); Neutrophils Absolute Auto 7.8 x10*3/uL (2.0-8.3); Neutrophils Percent Auto 62.3 % (45-73); Platelet Count 563 X10*3/uL (160-400); Red Blood Count 4.27 X10*6/uL (4.60-5.80); Red Cell Distribution Width 16.2 % (11.0-16.0); White Blood Count 12.5 X10*3/uL (4.8-10.8)
[2025-01-05 04:30] LABS: Alanine Aminotransferase < 6 U/L (0-40); Alkaline Phosphatase 131 U/L (39-117); Anion Gap 16 (12-20); Aspartate Amino Transferase 33 U/L (5-37); Bilirubin Total 0.5 mg/dL (0.0-1.0); Blood Urea Nitrogen 34 mg/dL (9-16); Calcium 9.2 mg/dL (8.4-10.2); Carbon Dioxide 17 mmol/L (22-29); Chloride 107 mmol/L (96-108); Creatinine Clr Calc Pharmacy 54.8; Estimated Glomerular Filt Rate 60; Glucose Random 115 mg/dL (60-115); Sodium 136 mmol/L (135-145); Total Protein 7.1 g/dL (6.5-8.0)
--- NOTE | 2025-01-05 04:30 | ED.GENADULT ---
HPI - General Adult General Chief complaint: General Medical Stated complaint: Dehydrated Time Seen by Provider: 01/05/25 04:30 Source: patient Mode of arrival: ambulatory Limitations: no limitations History of Present Illness ED Provider: DR. Dye HPI narrative: 59-year-old male with pertinent history of RA, HTN, hypothyroidism presented today to the ED with generalized weakness, started to have nonbloody watery diarrhea yesterday and felt nauseous. no vomiting, no abdominal pain, no fever, chills. Related Data Home Medications ?Medication ?Instructions ?Recorded ?Confirmed levothyroxine 112 mcg tablet 1 tab PO DAILY@0600 04/24/22 07/11/24 multivitamin 1 tab PO DAILY 04/24/22 07/11/24 ibuprofen 800 mg tablet 800 mg PO Q8H PRN pain 07/11/24 07/11/24 Allergies Allergy/AdvReac Type Severity Reaction Status Date / Time No Known Allergies Allergy Verified 01/05/25 03:54 PMFSH Past Medical History Medical History Osteomyelitis Hand lesion Hypothyroidism Rheumatoid arthritis Surgical History No pertinent past surgical history Family History Family History Other No family history of coronary artery disease Social History Social History Household Members: Spouse Housing: Other Housing Other:: Mobile home. Do you presently have visiting nurse or other home services: No Alcohol intake: current Alcohol intake frequency: does not drink Patient Tobacco Use Status: Never used Tobacco Smoked in Last 30 Days: No Second Hand Smoke Exposure: No Use of substances other than those prescribed or required for medical reasons: No Advance Directives: Yes Advance Directives on File: Yes Advance Directives Date on File: 07/15/24 Do you have a plan to hurt others: No Plan service: No Current occupational status: employed Physical Exam ED Vital Signs: Vital Signs - 24 hr 01/05/25 03:48 01/05/25 04:07 01/05/25 04:52 Temperature 97.6 F 97.6 F Pulse Rate 68 68 42 L Respiratory Rate 16 16 Blood Pressure 97/66 124/69 107/55 L Pulse Oximetry 99 Oxygen Delivery Method Room Air 01/05/25 04:52 01/05/25 04:52 01/05/25 06:12 Temperature 97.9 F Pulse Rate 58 59 51 Respiratory Rate 16 Blood Pressure 105/57 L 95/61 133/68 Pulse Oximetry 97 Oxygen Delivery Method Room Air BMI result Body Mass Index 24.1 Vital signs have been reviewed and appear to be correct. Blood pressure elevated. Heart rate normal. Respiratory rate normal. Temperature normal. Oxygen saturation normal. Appearance: Alert. Oriented X3. No acute distress. Head: Normal external exam. Normocephalic. Atraumatic. No Guillen signs noted. No raccoon eyes noted Eyes: PERRLA. EOMI. Conjunctiva and sclera normal. Eyelids normal. ENT: TM's Normal. Pharynx normal. Uvula midline. Dry mucous membranes. No trismus noted. No drooling noted. No muffled voice noted. Neck: Normal inspection. Neck supple. FROM. No adenopathy. Thyroid Normal. No meningeal signs. No neck mass noted. CVS: Normal heart rate and rhythm. Heart sound normal. No murmurs noted. Pulses normal throughout. Respiratory: No respiratory distress. Painless inspiration. Breath sounds normal. No wheezes/rales/rhonchi noted. Chest nontender. No accessory muscle usage noted or decreased air movement noted. Abdomen: Soft and nontender. Bowel sounds normal in all 4 quadrants. No distention noted. No organomegaly noted. No visible injury noted. Back: No CVA tenderness. Full range of motion noted. Skin: Skin warm and dry. Normal skin color. Normal skin turgor. No rashes/lesions/lacerations noted. Extremities: No lower extremity edema. Extremities exhibit normal range of motion. Extremities nontender. Neuro: Oriented X 3. Cranial nerve exam: II-XII are grossly intact No motor deficit. No sensory deficit. Reflexes normal. Course Reevaluation(s) Reevaluation #1: patient feels better after IV fluids, still complaining of diarrhea, while on re-evaluating the patient he received a phone call from his neighbor reporting that his murdered his autistic son and committed suicide, Time: 06:24 Medications Administered Discontinued Medications Generic Name Dose Route Start Last Admin Trade Name Freq PRN Reason Stop Dose Admin Lactated Ringer's 1,000 mls @ 999 mls/hr 01/05/25 04:45 01/05/25 06:14 Lr IV 01/05/25 05:45 Infused .Q1H1M REGGIE Infusion Iohexol 85 ml 01/05/25 05:12 01/05/25 05:13 Iohexol 350 Mg/Ml 100 Ml Infus..Btl IV 01/05/25 05:13 85 ml ONCE ONE Administration Medical Decision Making Differential Diagnosis Differential Diagnoses: The differential diagnosis associated with the presentation includes ( acute appendicitis, colitis, diverticulitis, pancreatitis, gastroenteritis, severe anemia, electrolyte derangement.) Admission/Observation Consideration of admission/observation: Escalation of care including admission/observation considered Lab Data MDM Lab Attestation statement: I reviewed the patient's lab results. 01/05/25 04:02 01/05/25 04:02 Labs: Lab Results 01/05/25 01/05/25 Range/Units 04:02 04:51 WBC 12.5 H (4.8-10.8) X10*3/uL RBC 4.27 L (4.60-5.80) X10*6/uL Hgb 10.6 L (14.0-18.0) g/dl Hct 32.2 L (42.0-52.0) % MCV 75.4 L (80.0-98.0) fL MCH 24.8 L (27.0-33.0) pg MCHC 32.9 (31.0-36.0) g/dl RDW 16.2 H (11.0-16.0) % Plt Count 563 H D (160-400) X10*3/uL MPV 9.0 L (9.4-12.4) fL Immature Gran % (Auto) 0.3 (0.0-0.4) % Neut % (Auto) 62.3 (45-73) % Lymph % (Auto) 25.3 (20-40) % [place] % (Auto) 9.7 (2-11) % Eos % (Auto) 1.8 (0-4) % Baso % (Auto) 0.6 (0-2) % Lymph # (Auto) 3.2 (1.2-4.9) X10*3/uL [place] # (Auto) 1.2 (0.1-1.2) X10*3/uL Eos # (Auto) 0.2 (0.0-0.4) X10*3/uL Baso # (Auto) 0.1 (0.0-0.2) X10*3/uL Abs Immat Gran (auto) 0.04 H (0.00-0.03) X10*3/uL Absolute Neuts (auto) 7.8 (2.0-8.3) x10*3/uL Absolute Nucleated RBC 0.000 (0.0-0.012) X10*3/uL Nucleated RBC % (auto) 0.0 (0.0-0.2) /100WBC Sodium 136 (135-145) mmol/L Potassium 4.0 (3.3-5.1) mmol/L Chloride 107 (96-108) mmol/L Carbon Dioxide 17 L (22-29) mmol/L Anion Gap 16 (12-20) BUN 34 H (9-16) mg/dL Creatinine 1.23 (0.5-1.4) mg/dL Estim Creat Clear Calc 54.8 Estimated GFR 60 Random Glucose 115 (60-115) mg/dL Calcium 9.2 D (8.4-10.2) mg/dL Magnesium 2.0 (1.6-2.6) mg/dL Total Bilirubin 0.5 (0.0-1.0) mg/dL AST 33 (5-37) U/L ALT < 6 (0-40) U/L Alkaline Phosphatase 131 H (39-117) U/L Total Protein 7.1 (6.5-8.0) g/dL Albumin 3.0 L (3.5-5.0) g/dL Stool Occult Blood NEGATIVE (NEGATIVE) Influenza Type A (PCR) NEGATIVE (Negative) Influenza Type B (PCR) NEGATIVE (Negative) RSV RNA Qual (PCR) NEGATIVE (Negative) SARS-CoV-2 RNA (RT-PCR) NEGATIVE (Negative) Independent Interpretation I performed an independent interpretation of an: CT Scan ( Abdomen pelvis:Normal appendix. Findings suggest enteritis. Interstitial lung disease noted at the lung bases.) Radiology Impression Discussion of test interpretation with radiology: I have reviewed the radiologist's reading. Discharge Plan Discharge Clinical Impression: Acute dehydration, Acute diarrhea Patient Disposition: Home, Self-Care Instructions: Acute Diarrhea (ED) Prescriptions: No Action multivitamin Tablet 1 tab PO DAILY levothyroxine 112 mcg tablet 1 tab PO DAILY@0600 ibuprofen 800 mg tablet 800 mg PO Q8H PRN (Reason: pain) Referrals: Jarrell Dawn MD [Primary Care Provider] - Print Language: Turkish
[2025-01-05 04:44] LABS: Influenza A PCR NEGATIVE (Negative); Influenza B PCR NEGATIVE (Negative); Resp Syncy Virus RNA Qual PCR NEGATIVE (Negative); SARS COV2 PCR INHOUSE NEGATIVE (Negative)
[2025-01-05] MEDS: Lactated Ringers 1,000 ML 999 ML IV (04:51)
[2025-01-05 04:52] VITALS: BP 105/57; BP 107/55; BP 95/61; PULSE 42; PULSE 58; PULSE 59
[2025-01-05 05:03] LABS: OBS Int Ctl Valid YES; OBS1 NEGATIVE (NEGATIVE)
[2025-01-05] MEDS: iohexoL 350 MG/ML 100 ML INFUS..BTL 85 ML IV (05:13)
--- OUTSIDE RECORDS SUMMARY | 2025-01-05 05:13 | XMS_ITS | Encounter Summary ---
Author Organization [facility] Address [address] [place] [address] Care Team Providers Care Vegetable Sorter Name Role Phone Jarrell Dawn MD Primary Care Provider Encounter Details Date Type Department Care Team (Late st Contact Info) Description 07/21/2024 Lab Requisition [facility] - Main Lab [address] [facility] [place] [address] Zahraa Cole PA [address] [address] Acute kidney failure, unspecified (CMS/HCC V24); Arthritis due to other bacteria, left elbow (CMS/HCC V24, CMS/HCC V28) Social History Tobacco Use Types Packs/Day Years Used Date Smoking Tobacco: Never Smokeless Tobacco: Never Alcohol Use Standard Drinks/Week Comments Yes 0 (1 standard drink = 0.6 oz pur e alcohol) Sex and Gender Information Value Date Recorded Sex Assigned at Not on file Legal Sex Male 10:15 PM EST Gender Identity Not on file Sexual Orientation Not on file documented as of this encounter Plan of Treatment Upcoming Encounters Date Type Department Care Team (Late st Contact Info) Description 02/08/2025 4:30 PM EDT Office Visit Adult Medicine [facility] [address] [place] [address] Jarrell Dawn MD [address] [place] [address] 02/14/2025 3:00 PM EDT Office Visit Orthopedic Surgery - [address] [place] [phone] Mejia Khan, DPM [address] [facility] [address] [place] [address] documented as of this encounter Procedures Procedure Name Priority Date/Time Associated Diagnosis Comments CBC WITH AUTO DIFFERENTIAL Routine 07/21/2024 4:00 PM EST Acute kidney failure, unspecified (CMS/HCC) Arthritis due to other bacteria, left elbow (CMS/HCC) RED - PLAIN Routine 07/21/2024 4:00 PM EST Acute kidney failure, unspecified (CMS/HCC) Arthritis due to other bacteria, left elbow (CMS/HCC) CBC AND DIFFERENTIAL Routine 07/21/2024 4:00 PM EST Acute kidney failure, unspecified (CMS/HCC) Arthritis due to other bacteria, left elbow (CMS/HCC) VANCOMYCIN, TROUGH Routine 07/21/2024 4: 00 PM EST Acute kidney failure, unspecified (CMS/HCC) Arthritis due to other bacteria, left elbow (CMS/HCC) BASIC METABOLIC PANEL Routine 07/21/2024 4:00 PM EST Acute kidney failure, unspecified (CMS/HCC) Arthritis due to other bacteria, left elbow (CMS/HCC) documented in this encounter Results * Red tube (07/21/2024 4:00 PM EST) Extra Tube Hold for add-ons. 07/21/2024 6:01 PM EST [facility] Comment:Auto resulted. Blood Venous blood specimen / Unknown 07/21/2024 4:00 PM EST 07/21/2024 4:48 PM EST us Zahraa BARON LAB BLOOD ORDERABLES Final Result [facility] [address] [place] [address], [place] [phone] * (ABNORMAL) CBC auto differential (07/21/2024 4:00 PM EST) [facility] Signature WBC 11.4(H) 4.8 - 10.8 K/mcL LAB HEMETOLOGY METHOD 07/21/2024 5:48 PM [facility] RBC 4.00(L) 4.50 - 5.50 M/mcL LAB HEMETOLOGY METHOD 07/21/2024 5:48 PM [facility] Hemoglobin 11.6(L) 13.5 - 17.5 g/dL LAB HEMETOLOGY METHOD 07/21/2024 5:48 PM [facility] Hematocrit 36.0(L) 42.0 - 54.0 % LAB HEMETOLOGY METHOD 07/21/2024 5:48 PM [facility] MCV 90.7 79.0 - 98.0 FL LAB HEMETOLOGY METHOD 07/21/2024 5:48 PM [facility] MCH 29.2 27.0 - 32.0 pcg LAB HEMETOLOGY METHOD 07/21/2024 5:48 PM [facility] MCHC 32.2 32.0 - 37.0 g/dL LAB HEMETOLOGY METHOD 07/21/2024 5:48 PM [facility] RDW 16.5(H) 11.0 - 15.0 % LAB HEMETOLOGY METHOD 07/21/2024 5:48 PM [facility] Platelets 323 130 - 400 K/mcL LAB HEMETOLOGY METHOD 07/21/2024 5:48 PM [facility] MPV 9.5 7.0 - 11.0 FL LAB HEMETOLOGY METHOD 07/21/2024 5:48 PM [facility] NRBC 0.0 <1.0 % LAB HEMETOLOGY METHOD 07/21/2024 5:48 PM [facility] NRBC Absolute 0.00 <0.10 K/mcL LAB HEMETOLOGY METHOD 07/21/2024 5:48 PM [facility] Neutrophils Relative 51.7 % LAB HEMETOLOGY METHOD 07/21/2024 5:48 PM [facility] Lymphocytes Relative 29.8 % LAB HEMETOLOGY METHOD 07/21/2024 5:48 PM [facility] Monocytes Relative 12.2 % LAB HEMETOLOGY METHOD 07/21/2024 5:48 PM [facility] Eosinophils Relative 4.9 % LAB HEMETOLOGY METHOD 07/21/2024 5:48 PM [facility] Basophils Relative 1.0 % LAB HEMETOLOGY METHOD 07/21/2024 5:48 PM [facility] Immature Granulocytes Relative 0.4 % LAB HEMETOLOGY METHOD 07/21/2024 5:48 PM [facility] Neutrophils Absolute 5.92 1.50 - 7.00 K/mcL LAB HEMETOLOGY METHOD 07/21/2024 5:48 PM [facility] Lymphocytes Absolute 3.40 1.00 - 5.00 K/mcL LAB HEMETOLOGY METHOD 07/21/2024 5:48 PM [facility] Monocytes Absolute 1.39(H) 0.20 - 1.00 K/mcL LAB HEMETOLOGY METHOD 07/21/2024 5:48 PM [facility] Eosinophils Absolute 0.56(H) 0.00 - 0.50 K/mcL LAB HEMETOLOGY METHOD 07/21/2024 5:48 PM [facility] Basophils Absolute 0.11 0.00 - 0.20 K/mcL LAB HEMETOLOGY METHOD 07/21/2024 5:48 PM [facility] Immature Granulocytes Absolute 0.04(H) 0.00 - 0.03 K/mcL LAB HEMETOLOGY METHOD 07/21/2024 5:48 PM EST [facility] Blood Venous blood specimen / Unknown 07/21/2024 4:00 PM EST 07/21/2024 4:48 PM EST Zahraa BARON LAB BLOOD ORDERABLES Final Result [facility] [address] [place] [address], [place] [phone] * Vancomycin, trough (07/21/2024 4:00 PM EST) Vancomycin Trough 17.6 10.0 - 20.0 mcg/mL LAB CHEMISTRY METHOD 07/21/2024 6:09 PM [facility] Blood Venous blood specimen / Unknown 07/21/2024 4:00 PM EST 07/21/2024 4:48 PM EST Zahraa BARON LAB BLOOD ORDERABLES Final Result [facility] [address] [place] [address], [place] [phone] * Basic metabolic panel (07/21/2024 4:00 PM EST) Sodium 139 133 - 145 mmol/L LAB CHEMISTRY METHOD 07/21/2024 6:09 PM [facility] Potassium 4.3 3.5 - 5.5 mmol/L LAB CHEMISTRY METHOD 07/21/2024 6:09 PM [facility] Chloride 109 96 - 110 mmol/L LAB CHEMISTRY METHOD 07/21/2024 6:09 PM [facility] CO2 25 21 - 32 mmol/L LAB CHEMISTRY METHOD 07/21/2024 6:09 PM [facility] Anion Gap 5 3 - 11 LAB CHEMISTRY METHOD 07/21/2024 6:09 PM [facility] Glucose 95 70 - 100 mg/dL LAB CHEMISTRY METHOD 07/21/2024 6:09 PM [facility] BUN 21 5 - 25 mg/dL LAB CHEMISTRY METHOD 07/21/2024 6:09 PM [facility] Creatinine 1.07 0.70 - 1.30 mg/dL LAB CHEMISTRY METHOD 07/21/2024 6:09 PM [facility] eGFR 79 >=60 mL/min/1. 73m2 LAB CHEMISTRY METHOD 07/21/2024 6:09 PM [facility] Comment:Calculation based on the??Chronic Kidney Disease Epidemiology Collaboration (CKD-EPI) equation refit??without adjustment for race. BUN/Creatinine Ratio 19.6 LAB CHEMISTRY METHOD 07/21/2024 6:09 PM [facility] Calcium 9.1 8.5 - 10.5 mg/dL LAB CHEMISTRY METHOD 07/21/2024 6:09 PM [facility] Blood Venous blood specimen / Unknown 07/21/2024 4:00 PM EST 07/21/2024 4:48 PM EST Zahraa BARON LAB BLOOD ORDERABLES Final Result [facility] [address] [place] [address], documented in this encounter Visit Diagnoses Diagnosis Acute kidney failure, unspecified (CMS/HCC V24) Acute kidney failure, unspecified Arthritis due to other bacteria, left elbow (CMS/HCC V24, CMS/HCC V28) documented in this encounter Care Teams Vegetable Sorter Relationship Specialty Start Date End Date Jarrell Dawn MD [address] [place] [id number] PCP - General 05/05/24 documented as of this encounter
--- OUTSIDE RECORDS SUMMARY | 2025-01-05 05:13 | XMS_ITS | Clinical Summary ---
Author Organization [address] Address [address] [place] [phone] Phone Care Team Providers Care Sand Sifter Name Role Phone Jarrell Dawn MD Primary Care Provider [phone] Allergies No known active allergies Medications adalimumab (Humira,CF, Pen) 40 mg/0.4 mL pen Inject 0.4 mL (40 mg total) under the skin. 03/01/20 20 Active folic acid (FOLVITE) 1 mg tablet Take 1 tablet (1,000 mcg total) by mouth 1 (one) time each day. 12/02/19 19 Active methotrexate 2.5 mg tablet Take 9 tablets (22.5 mg total) by mouth 1 (one) time per week 03/01/20 20 Active ibuprofen (ADVIL,MOTRIN) 800 mg tablet TAKE 1 TABLET BY MOUTH EVERY 8 HOURS NEEDED FOR PAIN 90 tablet 08/05/20 24 Active levothyroxine (SYNTHROID, LEVOTHROID) 112 mcg tablet TAKE 1 TABLET BY MOUTH EVERY DAY 90 tablet 1 10/12/19 25 Active albuterol HFA (Ventolin HFA) 90 mcg/actuation inhaler Inhale 2 puffs by mouth every 6 (six) hours if needed for wheezing or shortness of breath. 8 g 2 11/09/19 25 026 Active ciclopirox (PENLAC) 8 % solution Apply topically at bedtime. Apply over nail and surrounding skin. Apply daily over previous coat. After seven (7) days, may remove with alcohol and continue cycle. 6.6 mL 1 11/09/19 25 025 Active diclofenac (VOLTAREN) 1 % topical gel APPLY 2 GRAMS TOPICALLY 2 TIMES A DAY IF NEEDED FOR PAIN 100 g 1 01/03/20 25 Active benzonatate (TESSALON) 100 mg capsule Take 1 capsule (100 mg total) by mouth 3 (three) times a day if needed for cough. Do not crush or chew. 42 capsule 11/09/19 25 025 diclofenac (VOLTAREN) 1 % topical gel Apply 2 g topically 2 (two) times a day if needed (pain). 60 g 1 11/09/19 25 025 Discontinued doxycycline (VIBRAMYCIN) 100 mg capsule Take 1 capsule (100 mg total) by mouth 2 (two) times a day for 10 days. Take with at least 8 ounces (large glass) of water, do not lie down for 30 minutes after. Administer 2 hours before or after multivitamins, antacids, or other products containing polyvalent cations (i.e., calcium, iron, magnesium, selenium, zinc). 20 each 12/22/19 25 025 cefpodoxime (VANTIN) 200 mg tablet Take 1 tablet (200 mg total) by mouth 2 (two) times a day for 10 days. 20 each 12/22/19 25 025 Active Problems Problem Noted Date Diagnosed Date Pulmonary nodule 12/28/2024 RA (rheumatoid arthritis) ([facility] V24, [facility] V28) 12/01/2018 Onychomycosis 03/10/2016 Prediabetes 10/26/2014 Hypothyroidism 07/24/2009 Depression 03/24/2008 Psoriasis 03/24/2008 Allergic rhinitis 03/23/2008 Encounters Date Type Department Care Team Description 12/28/2024 3:00 PM EDT Consult Thoracic Surgery - [address] [place] [phone] Juan Carlos Castillo MD Pulmonary nodule (Primary Dx) 12/20/2024 3:30 PM EDT - 12/20/2024 11:59 PM EDT Hospital Encounter CT Scan [address] [phone] Chronic cough; Bilateral pleural effusion Discharge Disposition: Home or Self Care 12/14/2024 2:33 PM EDT - 12/14/2024 11:59 PM EDT Hospital Encounter [address] [phone] Chronic cough Discharge Disposition: Home or Self Care 12/14/[address] [phone] Jarrell Dawn MD Results 12/12/2024 3:00 PM EDT Office Visit Orthopedic Surgery [place] [phone] [phone] Mejia Khan, DPSarita Controlled type 2 diabetes mellitus with diabetic polyneuropathy, without long-term current use of insulin (CMS/HCC V24, CMS/HCC V28) (Primary Dx); Charcot arthropathy of midfoot; History of osteomyelitis; Hammer toes of both feet; Onychomycosis 12/09/[address] [phone] Jarrell Dawn MD 12/09/[address] [phone] Jarrell Dawn MD Results 12/04/2024 12:50 PM EDT - 12/04/2024 11:59 PM EDT Hospital Encounter [facility] [address] [place] [address] Osteoarthritis of right foot, unspecified osteoarthritis type; Right foot pain Discharge Disposition: Home or Self Care 11/22/2024 Telephone Adult [address] [phone] Magdalena Barney MA Results 11/09/2024 3:46 PM EST - 11/09/2024 11:59 PM EST Hospital Encounter [address] [phone] Right foot pain Discharge Disposition: Home or Self Care 11/09/2024 3:30 PM EST Office Visit Adult Medicine [address] [phone] Jarrell Dawn MD Hypothyroidism, unspecified type (Primary Dx); Type 2 diabetes mellitus with other specified complication, without long-term current use of insulin ([facility] V24, [facility] V28); Right foot pain; Chronic cough; Onychomycosis 10/17/2024 Telephone Adult Medicine [address] [phone] Jarrell Dawn MD Advice Only 10/12/2024 Nurse Triage Adult [address] [phone] Jarrell Dawn MD Flu Symptoms from Last 3 Months Immunizations Name Administration Dates Next Due H1N1 Inj Preservative Free 09/04/2009 Influenza Quadravalent, MDCK , 0.5ml, with preservative (Flucelvax) 6mo and older 06/20/2021,07/05/2019 Influenza trivalent, 0.5mL, preservative free (Fluarix; FluLaval; Fluzone) ages 6mo and older (Afluria) 3 years and older 06/07/2024,06/10/2020,09/12/2014,07/12,08/02/2012,09/04/2009 Pneumococcal conjugate 13 va lent (Prevnar 13, PCV13) 2mo and older 05/13/2022 Pneumococcal polysaccharide 23 valent (Pneumovax 23) 2yo and older 07/09/2022 Tdap Tetanus diptheria acell ular pertussis (Boostrix; Adacel) 7yo and older 04/14/2018,03/23/2008 Surgical History Surgery Date Site/Laterality Comments VASECTOMY PROCEDURE: [place] VASECTOMY UNI/BI SPX W/POSTOP SEMEN EXAMS COLONOSCOPY 06/21/2018 PROCEDURE: HISTORICAL COLONOSCOPY; COMMENT: hemorrhoids; repeat in 10 yrs Medical History Medical History Date Comments Unspecified disorder of thyroid DX:Unspecified disorder of thyroid Onychomycosis 03/10/2016 DX:Onychomycosis RA (rheumatoid arthritis) ([facility] [place] V24, [facility] V28) 12/01/2018 DX:RA (rheumatoid arthritis) (HCC) Family History Medical History Relation Name Comments Diabetes Brother 1 identical twin Heart attack Father cataract Heart attack Maternal Grandfather Other: ovarian cancer Mother diabet es Colon cancer Uncle Relation Name Status Comments Brother 1 Brother 2 Alive dm Brother 3 Alive Father (Age 77) chf, [place] Maternal Grandfather Mother Alive dm Sister Alive Uncle Social History Tobacco Use Types Packs/Day Years Used Date Smoking Tobacco: Never Smokeless Tobacco: Never Tobacco Cessation:Counseling Given: Not Answered Alcohol Use Standard Drinks/Week Comments Yes 0 (1 standard drink = 0.6 oz pur e alcohol) Sex and Gender Information Value Date Recorded Sex Assigned at Not on file Legal Sex Male 10:15 PM EST Gender Identity Not on file Sexual Orientation Not on file Obstetrics History Last Filed Vital Signs Vital Sign Reading Time Taken Comments Blood Pressure 121/62 12/28/2024 3:13 PM EDT Pulse 56 12/28/2024 3:13 PM EDT Temperature 35.7 ??C (96.3 ??F) 12/28/2024 3:13 PM ED T Respiratory Rate 18 12/28/2024 3:13 PM EDT Oxygen Saturation - - Inhaled Oxygen Concentration - - Weight 62.6 kg (138 lb 1.6 oz) 12/28/2024 3:13 P M EDT Height 165.1 cm (5' 5 ) 12/28/2024 3:13 PM EDT Body Mass Index 22.98 12/28/2024 3:13 PM EDT Plan of Treatment Upcoming Encounters Date Type Department Care Team (Late st Contact Info) Description 02/08/2025 4:30 PM EDT Office Visit Adult Medicine [facility] [address] [place] [phone] Jarrell Dawn MD [address] [place] [address] 02/14/2025 3:00 PM EDT Office Visit Orthopedic Surgery - [place] [phone] [phone] Mejia Khan DPM [address] [phone] Health Maintenance Due Date Last Done Comments Diabetes: Annual Retina Eye Exam 1973 Depression Screening 08/23/2022 HIV Screening 08/23/2022 Hepatitis C Screening 08/23/2022 Social Influencers of Health Screening 08/23/2022 RSV Immunization Adult Patients (1 - Risk 60-74 years 1-dose series) 2023 COVID-19 Vaccine ( season) 2024 08/08/2022, 12/25/2020, 11/27/2020 Diabetes: Annual Urine Albumin-Creatinine Ratio (uACR) 09/13/2024 Diabetes: Blood Sugar Control Test (HGBA1C) 12/07/2024 06/09/2024 Diabetes: Annual GFR (Glomerular Filtration Rate) 07/21/2025 07/21/2024, 06/09/2024 Diabetes: Annual Foot Exam 09/13/2025 09/13/2024 Pneumococcal Vaccine: 50+ Years (3 of 3 - PCV20 or PCV21) 07/09/2027 07/09/2022, 05/13/2022 Pneumococcal Vaccine: Pediatrics (0 to 5 Years) and At-Risk Patients (6 to 64 Years) (3 of 3 - PCV20 or PCV21) 07/09/2027 07/09/2022, 05/13/2022 DTaP,Tdap,and Td Vaccines (3 - Td or Tdap) 04/14/2028 04/14/2018, 03/23/2008 Colorectal Cancer Screening: Colonoscopy 06/21/2028 06/21/2018 Cholesterol Screening (Lipid Panel) 06/09/2029 06/09/2024, 09/08/2020 Zoster Vaccines Completed 06/13/2023, 01/07/2023 Influenza Vaccine Completed 06/07/2024, , 06/24/2022, Additional history exists HIB Vaccines Aged Out No longer eligi ble based on patient's age to complete this topic HPV Vaccines Aged Out No longer eligi ble based on patient's age to complete this topic Hepatitis A Vaccines Aged Out No long er eligible based on patient's age to complete this topic Hepatitis B Vaccines Aged Out No long er eligible based on patient's age to complete this topic IPV Vaccines Aged Out No longer eligi ble based on patient's age to complete this topic MMR Vaccines Aged Out No longer eligi ble based on patient's age to complete this topic Meningococcal ACWY Vaccine Aged Out N o longer eligible based on patient's age to complete this topic Meningococcal B Vaccine Aged Out No l onger eligible based on patient's age to complete this topic RSV Immunization Patients Under 20 months Aged Out No longer eligible based on patient's age to complete this topic Varicella Vaccines Aged Out No longer eligible based on patient's age to complete this topic Procedures Procedure Name Priority Date/Time Associated Diagnosis Comments CT CHEST WO CONTRAST STAT 12/20/2024 3:45 PM EDT Chronic cough Bilateral pleural effusion XR CHEST 2 VIEWS Routine 12/14/2024 2:43 PM EDT Chronic cough MR FOOT WO CONTRAST RIGHT Routine 12/04/2024 2:29 PM EDT Osteoarthritis of right foot, unspecified osteoarthritis type Right foot pain XR FOOT 3+ VIEWS RIGHT Routine 11/09/2024 4:15 PM EST Right foot pain BASIC METABOLIC PANEL Routine 07/21/2024 4:00 PM EST Acute kidney failure, unspecified (CMS/HCC) Arthritis due to other bacteria, left elbow (CMS/HCC) from Last 3 Months or Most Recently Relevant to Health Maintenance Results * CT Chest wo Contrast (12/20/2024 3:45 PM EDT) Anatomical Region Laterality Modality Body Computed Tomogra phy 12/20/2024 5:28 PM EDT Narrative 12/20/2024 5:[address] without intravenous contrast. History pleural effusions. Examination was performed on multidetector scanner without administration of intravenous contrast. Plain films obtained on 12/14/2024 with reviewed. Lungs are hyperinflated. There is arm ej basilar pleural thickening. There is no arm definite pleural effusions. There are bibasilar patchy infiltrates superimposed on arm areas of pulmonary fibrosis. There is a 6 mm pulmonary nodule located posteriorly in the right lower lobe. There is small radicular density in the right upper lobe inferiorly probably representing small infiltrate. It is better appreciated on sagittal image #43 and axial image 156. There is peribronchial thickening in the central zones bilaterally and probable areas of bronchiectasis at the bases medially. Major airways are patent. Arm there are calcifications of the coronary arteries. There are multiple small calcifications in the hilar regions bilaterally probably representing calcified lymph nodes. Images obtained through the upper abdomen revealed no focal abnormalities. Bony structures revealed degenerative changes in the thoracic spine. CONCLUSIONS: No evidence of pleural effusion. Bibasilar patchy infiltrates probably superimposed on areas of pulmonary fibrosis. Small infiltrate in the right upper lobe. Peribronchial thickening and bronchiectasis at the bases. Hyperinflation. 6 mm pulmonary nodule in the right lower lobe. Atherosclerotic changes. Follow-up chest CT in 3/6 months is recommended. -------- FINAL REPORT -------- Dictated By: Barbara Vázquez Dictated Date: 12/20/2024 17:28 ET Assigned Physician: Barbara Vázquez Reviewed and Electronically Signed By: Barbara Vázquez Signed Date: 12/20/2024 17:37 ET Workstation ID: [id number] Transcribed By: Self Edit Transcribed Date: 12/20/2024 17:28 ET Procedure Note Barbara Vázquez MD - 12/20/[address] without intravenous contrast. History pleural effusions. Examination was performed on multidetector scanner without administrationof intravenous contrast. Plain films obtained on 12/14/2024 withreviewed. Lungs are hyperinflated. There is arm ej basilar pleural thickening.There is no arm definite pleural effusions. There are bibasilar patchyinfiltrates superimposed on arm areas of pulmonary fibrosis. There is a 6mm pulmonary nodule located posteriorly in the right lower lobe. There issmall radicular density in the right upper lobe inferiorly probablyrepresenting small infiltrate. It is better appreciated on sagittal image#43 and axial image 156. There is peribronchial thickening in the centralzones bilaterally and probable areas of bronchiectasis at the basesmedially. Major airways are patent. Arm there are calcifications of the coronary arteries. There are multiplesmall calcifications in the hilar regions bilaterally probablyrepresenting calcified lymph nodes. Images obtained through the upper abdomen revealed no focal abnormalities.Bony structures revealed degenerative changes in the thoracic spine. CONCLUSIONS: No evidence of pleural effusion. Bibasilar patchy infiltratesprobably superimposed on areas of pulmonary fibrosis. Small infiltrate inthe right upper lobe. Peribronchial thickening and bronchiectasis at thebases. Hyperinflation. 6 mm pulmonary nodule in the right lower lobe.Atherosclerotic changes. Follow-up chest CT in 3/6 months is recommended. -------- FINAL REPORT -------- Dictated By: Barbara Vázquez Dictated Date: 12/20/2024 17:28 ET Assigned Physician: Barbara Vázquez Reviewed and Electronically Signed By: Barbara Vázquez Signed Date: 12/20/2024 17:37 ET Workstation ID: [id number] Transcribed By: Self Edit Transcribed Date: 12/20/2024 17:28 ET us Jarrell Dawn MD IMG CT PROCEDURES Final Res ult * XR Chest 2 Views (12/14/2024 2:43 PM EDT) Anatomical Region Laterality Modality Body Radiographic Moni ging 12/14/2024 5:50 PM EDT Narrative 12/14/2024 5:53 PM EDT Chest, 2 views. History chronic cough. Comparison with prior study from 06/19/2021. There are bilateral small pleural effusions. There is ??crowding of the markings at the ??left base which appears to be chronic. There is no evidence of pneumothorax or other focal parenchymal lung abnormalities. Heart is normal in size. There are degenerative changes in the thoracic spine. CONCLUSIONS: Small bilateral pleural effusions. Crowding of the markings at the left base which could be due to scarring. Possibility of small superimposed infiltrate could not be ruled out. Please correlate clinically. Chest CT may be helpful for better assessment. A copy of this report will be provided to the [facility] [employer] Program. -------- FINAL REPORT -------- Dictated By: Barbara Vázquez Dictated Date: 12/14/2024 17:50 ET Assigned Physician: Barbara Vázquez Reviewed and Electronically Signed By: Barbara Vázquez Signed Date: 12/14/2024 17:53 ET Workstation ID: [id number] Transcribed By: Self Edit Transcribed Date: 12/14/2024 17:50 ET Procedure Note Barbara Vázquez MD - 12/14/2024 Chest, 2 views. History chronic cough. Comparison with prior study from 06/19/2021. There are bilateral small pleural effusions. There is crowding of themarkings at the left base which appears to be chronic. There is noevidence of pneumothorax or other focal parenchymal lung abnormalities.Heart is normal in size. There are degenerative changes in the thoracicspine. CONCLUSIONS: Small bilateral pleural effusions. Crowding of the markingsat the left base which could be due to scarring. Possibility of smallsuperimposed infiltrate could not be ruled out. Please correlateclinically. Chest CT may be helpful for better assessment. A copy of this report will be provided to the [facility] [employer]. -------- FINAL REPORT -------- Dictated By: Barbara Vázquez Dictated Date: 12/14/2024 17:50 ET Assigned Physician: Barbara Vázquez Reviewed and Electronically Signed By: Barbara Vázquez Signed Date: 12/14/2024 17:53 ET Workstation ID: [id number] Transcribed By: Self Edit Transcribed Date: 12/14/2024 17:50 ET us Jarrell Dawn MD IMG XR PROCEDURES Final Res ult * MR Foot wo Contrast Right (12/04/2024 2:29 PM EDT) Anatomical Region Laterality Modality Lower Extremities, Foot Right Magnetic Resonance 12/06/2024 6:18 PM EDT Impressions 12/06/2024 7:53 PM EDT Collapse of the midfoot with severe degenerative and/or neuropathic changes throughout the midfoot resulting in bony destruction, malalignment, and periarticular edema. ??No superimposed fracture detected. Severe tibiotalar and subtalar arthritis. -------- FINAL REPORT -------- Dictated By: CHRISTIANA AUSTIN Dictated Date: 12/06/2024 18:18 ET Assigned Physician: CHRISTIANA AUSTIN Reviewed and Electronically Signed By: CHRISTIANA AUSTIN Signed Date: 12/06/2024 19:53 ET Workstation ID: [id number] Transcribed By: Self Edit Transcribed Date: 12/06/2024 18:18 ET Narrative 12/06/2024 7:53 PM EDT PROCEDURE: Right foot MRI INDICATION: Pain TECHNIQUE: Multiplanar, multisequence MRI of the right foot Without contrast. COMPARISON: ??No priors available. FINDINGS: There is destruction of the joints of the midfoot involving the talonavicular, naviculocuneiform, calcaneal cuboid, and tarsometatarsal joints with collapse of the midfoot. ??There is associated surrounding bony proliferative changes, bony remodeling, and periarticular marrow edema at the involved joints. ??There is chronic fragmentation and destruction of the navicular with lateral subluxation of the talar head relative to the navicular. No superimposed fracture is detected about the chronic midfoot changes. ??No suspicious marrow replacing lesion. Lisfranc ligament complex remains intact. ??Intermetatarsal ligaments are intact. Posterior tibial tendinosis without tear. ??Peroneal brevis and longus tendinosis without tear. ??Anterior tibial tendon and extensor tendons are intact. No significant joint effusions. Severe cartilage loss seen at the tibiotalar joint. ??Severe cartilage loss at the anterior and middle subtalar joints. No mass or fluid collection. Plantar fascia and Achilles tendon are intact. Procedure Note Christiana Austin MD - 12/06/2024 PROCEDURE: Right foot MRI INDICATION: Pain TECHNIQUE: Multiplanar, multisequence MRI of the right foot Withoutcontrast. COMPARISON: No priors available. FINDINGS: There is destruction of the joints of the midfoot involving thetalonavicular, naviculocuneiform, calcaneal cuboid, and tarsometatarsaljoints with collapse of the midfoot. There is associated surrounding bonyproliferative changes, bony remodeling, and periarticular marrow edema atthe involved joints. There is chronic fragmentation and destruction ofthe navicular with lateral subluxation of the talar head relative to thenavicular. No superimposed fracture is detected about the chronic midfoot changes.No suspicious marrow replacing lesion. Lisfranc ligament complex remains intact. Intermetatarsal ligaments areintact. Posterior tibial tendinosis without tear. Peroneal brevis and longustendinosis without tear. Anterior tibial tendon and extensor tendons areintact. No significant joint effusions. Severe cartilage loss seen at the tibiotalar joint. Severe cartilage lossat the anterior and middle subtalar joints. No mass or fluid collection. Plantar fascia and Achilles tendon are intact. IMPRESSION: Collapse of the midfoot with severe degenerative and/or neuropathicchanges throughout the midfoot resulting in bony destruction,malalignment, and periarticular edema. No superimposed fracturedetected. Severe tibiotalar and subtalar arthritis. -------- FINAL REPORT -------- Dictated By: CHRISTIANA AUSTIN Dictated Date: 12/06/2024 18:18 ET Assigned Physician: CHRISTIANA AUSTIN Reviewed and Electronically Signed By: CHRISTIANA AUSTIN Signed Date: 12/06/2024 19:53 ET Workstation ID: [id number] Transcribed By: Self Edit Transcribed Date: 12/06/2024 18:18 ET us Jarrell Dawn MD IMG MRI PROCEDURES Final Re sult * XR Foot 3+ Views Right (11/09/2024 4:15 PM EST) Anatomical Region Laterality Modality Lower Extremities, Foot Right Radiogra phic Imaging 11/10/2024 7:46 AM EST Impressions 11/10/2024 7:57 AM EST 1. Extensive degenerative changes of the right foot. ??No gross acute fracture is identified. 2. please note, subtle fractures may be limited due to extensive degenerative changes. ??If there is any concern for fracture, consider MRI foot -------- FINAL REPORT -------- Dictated By: Alvin Arrieta Dictated Date: 11/10/2024 07:46 ET Assigned Physician: Alvin Arrieta Reviewed and Electronically Signed By: Alvni Arrieta Signed Date: 11/10/2024 07:57 ET Workstation ID: [id number] Transcribed By: Self Edit Transcribed Date: 11/10/2024 07:46 ET Narrative 11/10/2024 7:57 AM EST HISTORY: RIGHT FOOT PAIN TECHNIQUE: AP, lateral, and oblique radiographs of the right foot COMPARISON: None FINDINGS: ?? No gross acute fracture is identified. ??There is severe joint space narrowing at the 2nd, 3rd, 4th and 5th DIP joints with subchondral sclerosis and moderate-sized osteophytes and subchondral cystic changes. ??There are extensive degenerative changes at the tarsometatarsal joints as well as at the tarsals with significant joint space narrowing, moderate-sized osteophytes and subchondral cystic changes. ??Small calcaneal spurs are present. Procedure Note Alvin Arrieta MD - 11/10/2024 HISTORY: RIGHT FOOT PAIN TECHNIQUE: AP, lateral, and oblique radiographs of the right foot COMPARISON: None FINDINGS: No gross acute fracture is identified. There is severe joint spacenarrowing at the 2nd, 3rd, 4th and 5th DIP joints with subchondralsclerosis and moderate-sized osteophytes and subchondral cystic changes.There are extensive degenerative changes at the tarsometatarsal joints aswell as at the tarsals with significant joint space narrowing,moderate-sized osteophytes and subchondral cystic changes. Smallcalcaneal spurs are present. IMPRESSION: 1. Extensive degenerative changes of the right foot. No gross acutefracture is identified. 2. please note, subtle fractures may be limited due to extensivedegenerative changes. If there is any concern for fracture, consider MRIfoot -------- FINAL REPORT -------- Dictated By: Alvin Arrieta Dictated Date: 11/10/2024 07:46 ET Assigned Physician: Alvin Arrieta Reviewed and Electronically Signed By: Alvin Arrieta Signed Date: 11/10/2024 07:57 ET Workstation ID: [id number] Transcribed By: Self Edit Transcribed Date: 11/10/2024 07:46 ET us Jarrell Dawn MD IMG XR PROCEDURES Final Res ult * Basic metabolic panel (07/21/2024 4:00 PM EST) Sodium 139 133 - 145 mmol/L LAB CHEMISTRY METHOD 07/21/2024 6:[address] [facility] Potassium 4.3 3.5 - 5.5 mmol/L LAB CHEMISTRY METHOD 07/21/2024 6:[address] [facility] Chloride 109 96 - 110 mmol/L LAB CHEMISTRY METHOD 07/21/2024 6:[address] [facility] CO2 25 21 - 32 mmol/L LAB CHEMISTRY METHOD 07/21/2024 6:[address] [facility] Anion Gap 5 3 - 11 LAB CHEMISTRY METHOD 07/21/2024 6:[address] [facility] Glucose 95 70 - 100 mg/dL LAB CHEMISTRY METHOD 07/21/2024 6:[address] [facility] BUN 21 5 - 25 mg/dL LAB CHEMISTRY METHOD 07/21/2024 6:[address] [facility] Creatinine 1.07 0.70 - 1.30 mg/dL LAB CHEMISTRY METHOD 07/21/2024 6:[address] [facility] eGFR 79 >=60 mL/min/1. 73m2 LAB CHEMISTRY METHOD 07/21/2024 6:[address] [facility] [facility] Comment:Calculation based on the??Chronic Kidney Disease Epidemiology Collaboration (CKD-EPI) equation refit??without adjustment for race. BUN/Creatinine Ratio 19.6 LAB CHEMISTRY METHOD 07/21/2024 6:[address] [facility] Calcium 9.1 8.5 - 10.5 mg/dL LAB CHEMISTRY METHOD 07/21/2024 6:[address] [facility] Blood Venous blood specimen / Unknown 07/21/2024 4:00 PM EST 07/21/2024 4:48 PM EST us Zahraa BARON LAB BLOOD ORDERABLES Final Result [facility] [address] [place] [address], from Last 3 Months or Most Recently Relevant to Health Maintenance Insurance [facility] PL[facility] Care Teams Sand Sifter Relationship Specialty Start Date End Date Jarrell Dawn MD [address] [place] [address] PCP - General 05/05/24
--- OUTSIDE RECORDS SUMMARY | 2025-01-05 05:13 | XMS_ITS | Clinical Summary ---
Author Organization [facility] Address [address] [place] [address] Care Team Providers Care Kindergarten Teacher Name Role Phone Unavailable Primary Care Provider Unavailabl e Source Comments PLEASE NOTE, if this patient is a minor, it may be UNLAWFUL to discuss sensitive information that is contained in these records (such as FAMILY PLANNING, MENTAL HEALTH or SUBSTANCE ABUSE) with the minor patient's parent or other person without the patient's specific authorization.[facility] Immunizations Immunization Administration Dates Next Due Moderna COVID-19 Vaccine, re d cap blue label, 12+ Primary Series 12/25/2020,11/27/2020 Social History Tobacco Use Types Packs/Day Years Used Date Smoking Tobacco: Never Assessed Social Connections Answer Date Recorded Social Connections and Isolation 0 11/27/2020 Financial Resource Strain Answer Date R ecorded Financial Resource Strain 0 2020 Stress Answer Date Recorded Stress 0 11/27/2020 Physical Activity Answer Date Recorded Physical Activity 0 11/27/2020 Food Insecurity Answer Date Recorded Food 0 11/27/2020 Transportation Needs Answer Date Record ed Transportation 0 11/27/2020 Housing Stability Answer Date Recorded Housing 0 11/27/2020 Safety and Environment Answer Date Rob rded Safety 0 11/27/2020 Utilities Answer Date Recorded Utilities 0 11/27/2020 Employment Answer Date Recorded Employment 0 11/27/2020 Sex and Gender Information Value Date Recorded Sex Assigned at Not on file Legal Sex Male 8:11 AM PDT Gender Identity Not on file Sexual Orientation Not on file Plan of Treatment Health Maintenance Due Date Last Done Comments Anxiety Screening 1965 Diabetes Screening 1963 Hepatitis C Screening 1963 Lipid Screening 1963 Tobacco Screening 1963 HIV Screening 1978 Hypertension Screening (#1) 1981 CT Colonography 2008 Colonoscopy 2008 Colorectal Cancer Screening 2008 FIT/gFOBT 2008 Fecal DNA 2008 Flexible Sigmoidoscopy 2008 Imm-Zoster, Recombinant (1 of 2) 2013 Xkr-TDCHE-54 ( season) 2024 021, 11/27/2020 Imm-Influenza (#1) 2024 06/20/2021, 0 06/10/2020, 07/05/2019, Additional history exists Alcohol and Drug Screen 09/14/2024 Depression Annual Screen 09/14/2024 Imm-DTaP/Tdap/Td (3 - Td or Tdap) 04/14/2028 018, 03/23/2008 Insurance [employer] Member Subscriber Plan / Payer (Ef fective 2020-Present) Name:Jules Lynch Relation to Subscriber:Self Name:Jules Lynch Payer ID:[id number] Group ID:Not on file Type:Indemnity Address: [address] [address]
--- OUTSIDE RECORDS SUMMARY | 2025-01-05 05:13 | XMS_ITS | Encounter Summary ---
Author Organization [facility] Address [address] [place] [address] Care Team Providers Care Table Maker Name Role Phone Jarrell Dawn MD Primary Care Provider [phone]- [phone] Reason for Visit * Reason Onset Date Comments Results 12/09/2024 Encounter Details Date Type Department Care Team ([facility] st Contact Info) Description 12/09/2024 Telephone Adult Medicine [facility] [address] [place] [phone] Jarrell Dawn MD [address] [place] [address] Results Social History Tobacco Use Types Packs/Day Years [...] on file documented as of this encounter Progress Notes * Magdalena Barney MA - 12/09/2024 1:22 PM EDT called [facility] and requested they resend labs to both [phone] and [phone] in case one does not work * Magdalena Barney MA - 12/09/2024 12:49 PM EDT Called pt to clarify as I was not understanding what he called in about. He stated the arthritis center did labs and sent us the results yesterday (not in chart) and he wanted Dr Dawn to follow up on his white blood cells being high - made pt aware I will see if I can find those labs and let him know if he needs to be seen or not * Noemi Burk - 12/09/2024 9:17 AM EDT Inform patient: ANY URGENT OR ABNORMAL RESULTS WIILL RESULT IN A CALL BACK TO THE PATIENT TITO. Type of test: :blood test Date test was performed: patient unsure Where was the test performed: [facility] Who ordered this test?: Dr Cardoza Is the doctor here today?: no Can the message wait until the doctor returns?: yes IF PATIENT'S PCP IS NOT IN INSTRUCT PATIENT THAT THEY WILL RECEIVE A CALL BACK WHEN THE PCP IS IN THE OFFICE NEXT. documented in this encounter Plan of Treatment Upcoming Encounters Date Type Department Care Team (Late st Contact Info) Description 02/08/2025 4:30 PM EDT Office Visit Adult Medicine [facility] [address] [place] [address] Jarrell Dawn MD [address] [place] [address] 02/14/2025 3:00 PM EDT Office Visit Orthopedic Surgery - [place] [address] [facility] [address] [place] [phone] Mejia Khan DPM [address] [facility] [address] [place] [id number] documented as of this encounter Visit Diagnoses Not on filedocumented in this encounter Care Teams Table Maker Relationship Specialty Start Date End Date Jarrell Dawn MD [address] [place] [address] PCP - General 05/05/24 documented as of this encounter
[2025-01-05 06:12] VITALS: BP 133/68; PULSE 51; RESP 16; TEMP 36.6; O2SAT 97
[2025-01-05] MEDS: Loperamide HCl 2 MG CAPSULE PO (06:41)
[2025-01-05 06:44] VITALS: BP 133/68; PULSE 51; RESP 16; TEMP 36.6; O2SAT 97
== END 2025-01-05 06:45 | disposition home or self-care (01) ==
PROVIDERS: Emergency Provider Emergency Medicine; PCP Internal Medicine
DX: R19.7 Diarrhea, unspecified (principal); E86.0 Dehydration; I10 Essential (primary) hypertension; E03.9 Hypothyroidism, unspecified; Z79.899 Other long term (current) drug therapy; Z03.818 Encounter for observation for suspected exposure to other biological agents ruled out
CPT/HCPCS: 0241U; 74177; 80053; 82272; 83735; 85025; 96360; 99284; J7120; Q9967

== ENCOUNTER → 2025-01-05 04:36 | Outpatient (BNV) | payer OTHER, SELFPAY | PROVIDERS: Emergency Provider Emergency Medicine; PCP Internal Medicine; Visit Provider Radiology Vascular & Interventional Radiology | DX: J84.9 Interstitial pulmonary disease, unspecified (principal) | CPT/HCPCS: 74177 ==